=== PATIENT | female | born 1985 | race Caucasian/White ===

== ENCOUNTER 2016-09-24 19:55 | Emergency (ER) | payer OTHER ==
[2016-09-24 20:02] VITALS: TEMP 97.7; BMI 31.1
--- NOTE | 2016-09-24 20:22 | PDOC ---
[id number] 100 09/24/16 19:59 09/24/16 19:59 09/24/16 19:59 09/24/16 19:59 09/24/16 19:59 ED Treatment Course - LABORATORY CBC & Chemistry Diagram: 09/24/16 20:36 09/24/16 20:36 Medical Decision Making - Medical Decision Making 09/24/16 20:21 agree with care from PIG MACHINE CRANE OPERATOR Sudarshan *DC/Admit/Observation/Transfer Diagnosis at time of Disposition: General ill feeling, Fever - Discharge Dispostion Disposition: HOME - Prescriptions Prescriptions: Ibuprofen [Motrin -] 600 mg PO Q6H PRN #30 tablet PRN Reason: Mild Pain Famotidine [Pepcid -] 20 mg PO DAILY #7 tablet Oxycodone HCl/Acetaminophen [Percocet 5-325 mg Tablet] 1 tab PO Q6H PRN #16 tablet MDD 4 TABS PRN Reason: Severe Pain Ondansetron [Zofran Odt -] 4 mg SL Q6H PRN #20 od.tablet PRN Reason: NAUSEA AND VOMITING - Referrals Referrals: Taqueria Dominguez MD [Staff Physician] - - Patient Instructions Printed Discharge Instructions: DI for Viral Upper Respiratory Infection -- Adult Additional Instructions: FOLLOW UP WITH DR. DOMINGUEZ (GI SPECIALIST) REGARDING TODAYS VISIT. CALL TO SCHEDULE APPOINTMENT. TAKE MEDICATIONS PRESCRIBED. DO NOT DRIVE, DRINK ALCOHOL, OR OPERATE HEAVY MACHINERY WHILE TAKING PERCOCET. DRINK LOTS OF FLUIDS , GET REST. NO WORK X 3 DAYS. Print Language: AMHARIC - Post Discharge Activity Work/School Note: Back to Work
[2016-09-24] MEDS ORDERED: PANTOPRAZOLE SODIUM 40 MG in SODIUM CHLORIDE 100 ML IVPB ONE (20:32)
[2016-09-24] MEDS ORDERED: SODIUM CHLORIDE 1,000 ML IV STA (20:32)
[2016-09-24] MEDS ORDERED: PANTOPRAZOLE SODIUM 100 ML IVPB ONE (20:56)
--- NOTE | 2016-09-24 21:06 | PDOC ---
History of Present Illness - General Chief Complaint: Cold Symptoms Stated Complaint: FEVER/BODY ACHE/VOMITING/ABD PAIN Time Seen by Provider: 09/24/16 20:17 History Source: Patient Exam Limitations: No Limitations - History of Present Illness Initial Comments: 09/24/16 21:01 30yo Female patient with history of Asthma presents to ED c/o fever (104.1) today, vomit x 1, h/a with blurred vision, stomach pains x 2 days and possible seizure. Patient states she passed out while at home, and her sister thought she was having a seizure. Patient state mother has history of seizures. LNMP: 1 week ago. Patient took Motrin for fever with + results. She denies CP, back pain , diarrhea, constipation, diff breathing, rash, drug use, dysuria, hematuria, , or any other complaints. Timing/Duration: other (2 days.) Severity: mild Modifying Factors: improves with: medication Associated Symptoms: reports: fever/chills, headaches, loss of appetite, nausea/ vomiting, seizure (Possible) Aspirin Received prior to arrival: Yes: no aspirin today Past History - Travel Traveled outside of the country in the last 30 days: No Close contact w/someone who was outside of country & ill: No - Past Medical History Allergies/Adverse Reactions: Allergies Allergy/AdvReac Type Severity Reaction Status Date / Time No Known Allergies Allergy Verified 09/24/16 19:59 Home Medications: Ambulatory Orders Famotidine [Pepcid -] 20 mg PO DAILY #7 tablet 09/24/16 Ibuprofen [Motrin -] 600 mg PO Q6H PRN #30 tablet 09/24/16 Ondansetron [Zofran Odt -] 4 mg SL Q6H PRN #20 od.tablet 09/24/16 Oxycodone HCl/Acetaminophen [Percocet 5-325 mg Tablet] 1 tab PO Q6H PRN #16 tablet MDD 4 TABS 09/24/16 Asthma: Yes - Psycho/Social/Smoking Cessation Hx Suicidal Ideation: No Smoking History: Never smoked Review of Systems - Review of Systems Able to Perform ROS?: Yes Is the patient limited Faroese proficient: No Constitutional: Yes: Chills, Fever. No: Diaphoresis, Weakness HEENTM: Yes: Blurred Vision. No: Double Vision, Nose Congestion, Throat Pain Respiratory: No: Cough, Shortness of Breath, Wheezing Cardiac (ROS): No: Chest Pain, Edema, Palpitations ABD/GI: Yes: Nausea, Poor Appetite, Vomiting, Abdominal cramping. No: Diarrhea , Rectal Bleeding : No: Burning, Dysuria, Flank Pain, Hematuria Musculoskeletal: No: Back Pain Integumentary: No: Bruising, Rash Neurological: Yes: Headache, Seizure. No: Numbness, Paresthesia, Tingling, Tremors, Weakness, Dizziness All Other Systems: Reviewed and Negative *Physical Exam - Vital Signs Last Vital Signs Temp Pulse Resp BP Pulse Ox 97.7 F 69 18 125/81 100 09/24/16 19:59 09/24/16 19:59 09/24/16 19:59 09/24/16 19:59 09/24/16 19:59 - Physical Exam General Appearance: Yes: Nourished, Appropriately Dressed. No: Apparent Distress HEENT: positive: EOMI, SHRAVAN, Normal ENT Inspection, Normal Voice, Symmetrical, TMs Normal, Pharynx Normal Neck: positive: Trachea midline, Supple Respiratory/Chest: positive: Lungs Clear, Normal Breath Sounds Cardiovascular: positive: Regular Rhythm, Regular Rate Gastrointestinal/Abdominal: positive: Normal Bowel Sounds, Soft Musculoskeletal: positive: Normal Inspection. negative: CVA Tenderness Extremity: positive: Normal Capillary Refill, Normal Inspection, Normal Range of Motion Integumentary: positive: Normal Color, Dry, Warm Neurologic: positive: burning supervisor II-XII NML intact, Fully Oriented, Alert, Normal Mood/ Affect, Normal Response, Motor Strength 5/5 ED Treatment Course - LABORATORY CBC & Chemistry Diagram: 09/24/16 20:36 09/24/16 20:36 *DC/Admit/Observation/Transfer Diagnosis at time of Disposition: General ill feeling Fever Qualifiers: Fever type: unspecified Qualified Code(s): R50.9 - Fever, unspecified - Discharge Dispostion Disposition: HOME Condition at time of disposition: Improved Admit: No - Prescriptions Prescriptions: Ibuprofen [Motrin -] 600 mg PO Q6H PRN #30 tablet PRN Reason: Mild Pain Famotidine [Pepcid -] 20 mg PO DAILY #7 tablet Oxycodone HCl/Acetaminophen [Percocet 5-325 mg Tablet] 1 tab PO Q6H PRN #16 tablet MDD 4 TABS PRN Reason: Severe Pain Ondansetron [Zofran Odt -] 4 mg SL Q6H PRN #20 od.tablet PRN Reason: NAUSEA AND VOMITING - Referrals Referrals: Taqueria Dominguez MD [Staff Physician] - - Patient Instructions Printed Discharge Instructions: DI for Viral Upper Respiratory Infection -- Adult Additional Instructions: FOLLOW UP WITH DR. DOMINGUEZ (GI SPECIALIST) REGARDING TODAYS VISIT. CALL TO SCHEDULE APPOINTMENT. TAKE MEDICATIONS PRESCRIBED. DO NOT DRIVE, DRINK ALCOHOL, OR OPERATE HEAVY MACHINERY WHILE TAKING PERCOCET. DRINK LOTS OF FLUIDS , GET REST. NO WORK X 3 DAYS. Print Language: AZERI - Post Discharge Activity Work/School Note: Back to Work
[2016-09-24 21:16] LABS: MCHC 30.4 g/dl (32.0-36.0); MEAN CELL VOLUME 64.2 fl (80-96); MEAN PLT VOLUME 9.8 fl (7.5-11.1); PLATELET COUNT 369 K/MM3 (134-434); RDW 18.9 % (11.6-15.6); WHITE BLOOD COUNT 10.3 K/mm3 (4.0-10.0)
[2016-09-24 21:21] LABS: MCH 19.5 pg (25.7-33.7)
[2016-09-24 21:34] LABS: CALCIUM 9.2 mg/dL (8.5-10.1)
[2016-09-24 22:02] LABS: HYPOCHROMIA 3+; MICROCYTOSIS 2+; OVALOCYTES 1+; PLATELET ESTIMATE ADEQUATE (NORMAL); POIKILOCYTOSIS 1+; POLYCHROMASIA 1+
[2016-09-24] MEDS ORDERED: OXYCODONE/APAP 5/325MG COMBO TABLET PO ONE (22:18)
[2016-09-24] MEDS ORDERED: FAMOTIDINE 20 MG/50 ML IVPB 50 ML IVPB ONE ×2 (22:18→22:27)
[2016-09-24] MEDS ORDERED: OXYCODONE/APAP 5/325MG COMBO TABLET ONE (22:26)
[2016-09-24 22:44] LABS: PH,URINE 6.5 (5.0-8.0); URINE APPEARANCE CLEAR; URINE BILIRUBIN NEGATIVE (NEGATIVE); URINE BLOOD NEGATIVE (NEGATIVE); URINE COLOR LT. YELLOW; URINE GLUCOSE (UA) NEGATIVE (NEGATIVE); URINE KETONE NEGATIVE (NEGATIVE); URINE NITRITE NEGATIVE (NEGATIVE); URINE PROTEIN NEGATIVE (NEGATIVE); URINE UROBILINOGEN 0.2 E.U/dl E.U./dl (0.2-1.0)
[2016-09-24 22:49] LABS: URINE LEUK ESTERASE 1+ (NEGATIVE)
[2016-09-24 23:06] LABS: URINE BACTERIA RARE /hpf (NONE SEEN); URINE MUCUS RARE; URINE RBC 1 /hpf (0-3); URINE WBC 7 /hpf (3-5)
[2016-09-24 23:56] VITALS: BP 121/71; PULSE 74
== END 2016-09-24 23:57 | disposition home or self-care (01) ==
LOC: JER 19:55
PROC: 3E033GC Introduction of Other Therapeutic Substance into Peripheral Vein, Percutaneous Approach (ICD-10-PCS; principal; 2016-09-24)
PROC: 3E033GC Introduction of Other Therapeutic Substance into Peripheral Vein, Percutaneous Approach (ICD-10-PCS; 2016-09-24)
DX: R50.9 Fever, unspecified (principal)
CPT/HCPCS: 36415; 70450-TC; 80048; 81003; 81015; 82150; 83690; 84703; 85027; 87804; 99284-25

== ENCOUNTER 2017-05-27 23:22 | Emergency (ER) | payer OTHER ==
[2017-05-28 00:15] VITALS: BP 127/76; PULSE 121; TEMP 100.8; BMI 27.4
[2017-05-28] MEDS ORDERED: SODIUM CHLORIDE 1,000 ML IV STA (00:25)
[2017-05-28] MEDS ORDERED: DEXAMETHASONE SOD PHOSPHATE 10 MG/1 ML VIAL IVPB ONE (00:25)
[2017-05-28] MEDS ORDERED: DEXAMETHASONE SOD PHOSPHATE 10 MG/1 ML VIAL ONE (00:34)
[2017-05-28 00:44] LABS: BASOPHIL 0.4 % (0-2.0); EOSINOPHIL 0.7 % (0-4.5); MCH 20.6 pg (25.7-33.7); MCHC 31.8 g/dl (32.0-36.0); MEAN CELL VOLUME 64.9 fl (80-96); MEAN PLT VOLUME 9.9 fl (7.5-11.1); NEUTROPHILS 80.4 % (42.8-82.8); PLATELET COUNT 285 K/MM3 (134-434); RDW 18.2 % (11.6-15.6); WHITE BLOOD COUNT 17.5 K/mm3 (4.0-10.0)
[2017-05-28 01:18] LABS: ALBUMIN 4.1 g/dl (3.4-5.0); ALK PHOS 102 U/L (45-117); ANION GAP 11 (8-16); BILIRUBIN,TOTAL 0.4 mg/dL (0.2-1.0); CALCIUM 8.9 mg/dL (8.5-10.1); CO2 24 mmol/L (21-32); CREATININE 0.6 mg/dL (0.55-1.02); GLUCOSE,RANDOM 89 mg/dL (74-106); SGOT/AST 11 U/L (15-37); SGPT/ALT 24 U/L (12-78); TOT PROT 7.6 g/dl (6.4-8.2)
[2017-05-28] MEDS ORDERED: PENICILLIN G BENZATHINE 1,200,000 UNIT/2 ML PFS IM ONE (01:23)
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
[2017-05-28 03:19] LABS: ANISOCYTOSIS 2+; HYPOCHROMIA 2+; MICROCYTOSIS 2+
[2017-05-28 03:20] LABS: OVALOCYTE RARE
== END 2017-05-28 02:09 | disposition home or self-care (01) ==
LOC: JER 23:22
PROC: 3E0333Z Introduction of Anti-inflammatory into Peripheral Vein, Percutaneous Approach (ICD-10-PCS; principal; 2017-05-27)
PROC: 3E02329 Introduction of Other Anti-infective into Muscle, Percutaneous Approach (ICD-10-PCS; 2017-05-27)
DX: J02.0 Streptococcal pharyngitis (principal); B95.0 Streptococcus, group A, as the cause of diseases classified elsewhere
CPT/HCPCS: 36415; 80053; 84703; 85025; 87070; 87077; 87430; 96372; 96374; 99282-25

== ENCOUNTER 2018-06-03 17:21 | Emergency (ER) | payer OTHER ==
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
[2018-06-03 17:39] VITALS: BP 122/67; PULSE 78; TEMP 98.7; BMI 34.9
[2018-06-03] MEDS ORDERED: KETOROLAC TROMETHAMINE 60 MG/2 ML VIAL IM ONE (17:55)
[2018-06-03] MEDS ORDERED: KETOROLAC TROMETHAMINE 60 MG/2 ML VIAL ONE (17:59)
--- NOTE | 2018-06-03 18:01 | PDOC ---
History of Present Illness - General Chief Complaint: Back Pain Stated Complaint: BACK PAIN Time Seen by Provider: 06/03/18 17:25 - History of Present Illness Initial Comments: 32-year-old female without comorbidities presents for evaluation of neck and lower back pain 2 weeks. She complains of radicular symptoms down the right and left arm as well as the right leg. Her pain is exacerbated with activity minimally relieved with rest with the above-mentioned radiation. She denies loss of bowel bladder function or saddle paresthesias. She has taken Tylenol and Motrin at home without much relief. She denies any chance of 06/03/18 17:57 Past History - Past Medical History Allergies/Adverse Reactions: Allergies Allergy/AdvReac Type Severity Reaction Status Date / Time No Known Allergies Allergy Verified 06/03/18 17:24 Home Medications: Ambulatory Orders Cyclobenzaprine HCl [Flexeril 10 mg] 10 mg PO HS PRN #10 tablet 06/03/18 Methylprednisolone [Medrol Dose Yoan] 4 mg PO ASDIR #21 tablet 06/03/18 Asthma: Yes COPD: No - Immunization History Immunization Up to Date: Yes - Suicide/Smoking/Psychosocial Hx Smoking History: Never smoked Have you smoked in the past 12 months: No Hx Alcohol Use: No Drug/Substance Use Hx: No Review of Systems - Review of Systems Musculoskeletal: Yes: See HPI, Back Pain, Muscle Pain, Neck Pain All Other Systems: Reviewed and Negative *Physical Exam - Vital Signs Last Vital Signs Temp Pulse Resp BP Pulse Ox 98.7 F 78 16 122/67 100 06/03/18 17:25 06/03/18 17:25 06/03/18 17:25 06/03/18 17:25 06/03/18 17:25 - Physical Exam Comments: Cervical spine skin color and temperature are normal range of motion is mildly decreased with pain. She has no midline tenderness mild right left paracervical musculature tenderness and spasm. 5 out of 5 strength in bilateral upper extremities mild a positive Spurling maneuver on the right and left. She has no gross sensorimotor deficits. Upper extremity compartments are soft and nontender. She's neurovascular intact. Lumbar spine skin color and temperature are normal she has no midline tenderness. She has mild paralumbar musculature spasm and tenderness. 5 out of 5 strength in bilateral lower extremities negative straight leg raise test on the left positive on the right. She has no gross sensorimotor deficits. She's neurovascular intact. 06/03/18 17:58 Medical Decision Making - Medical Decision Making Geraldine cervical and lumbar radicular pain with a Medrol Dosepak and Flexeril in the emergency room I will give her a shot of Toradol and reevaluate her 06/03/18 17:59 *DC/Admit/Observation/Transfer Diagnosis at time of Disposition: Cervical radiculopathy, Lumbar radiculopathy Back pain Qualifiers: Back pain location: back pain in other location Chronicity: unspecified Qualified Code(s): M54.89 - Other dorsalgia - Discharge Dispostion Disposition: HOME Condition at time of disposition: Improved Decision to Admit order: No - Prescriptions Prescriptions: Cyclobenzaprine HCl [Flexeril 10 mg] 10 mg PO HS PRN #10 tablet PRN Reason: Muscle Spasms Methylprednisolone [Medrol Dose Yoan] 4 mg PO ASDIR #21 tablet - Referrals Referrals: Sotero Clemons MD [Staff Physician] - - Patient Instructions Printed Discharge Instructions: DI for Cervical Radiculopathy, Lumbar Radiculopathy, DI for Lumbar Radiculopathy Additional Instructions: Return to the emergency room should symptoms worsen or go unresolved. I've given you a prescription for a steroid pack which he should start tomorrow morning. As well as a muscle relaxant. He may start the muscle relaxer tonight. One tablet before bedtime. This tablet make you sleepy. Follow-up with spine surgery in 1-2 days for further evaluation and treatment options. - Post Discharge Activity
== END 2018-06-03 18:29 | disposition home or self-care (01) ==
LOC: JERFT 17:21
PROC: 3E0233Z Introduction of Anti-inflammatory into Muscle, Percutaneous Approach (ICD-10-PCS; principal; 2018-06-03)
DX: M54.12 Radiculopathy, cervical region (principal); M54.16 Radiculopathy, lumbar region
CPT/HCPCS: 96372; 99281-25

== ENCOUNTER 2018-08-01 16:59 | Emergency (ER) | payer OTHER ==
[2018-08-01] MEDS ORDERED: ALBUTEROL SO4 2.5/IPRATROPIUM 0.5 INH SOL 3 ML VIAL.NEB. NEB ONE ×3 (17:42→18:07)
[2018-08-01 17:44] VITALS: BP 114/79; PULSE 88; TEMP 99.2; BMI 34.9
--- NOTE | 2018-08-01 17:45 | PDOC ---
Rapid Medical Evaluation Time Seen by Provider: 08/01/18 17:40 Medical Evaluation: Allergies Allergy/AdvReac Type Severity Reaction Status Date / Time No Known Allergies Allergy Verified 08/01/18 17:40 08/01/18 17:40 c/o difficulty breathing x 3 days, cough, throat pain, bodyaches. + fever tmax 103.4 PE: + wheezing, pharyngeal erythema A: bronchitis? cough P: rapid strep, duoneb, chest xray, ua/ urine patient to the ER for further management of care Discharge Disposition - Diagnosis Cough URI (upper respiratory infection) Qualifiers: URI type: unspecified URI Qualified Code(s): J06.9 - Acute upper respiratory infection, unspecified - Referrals - Patient Instructions - Post Discharge Activity
[2018-08-01] MEDS ORDERED: predniSONE 20 MG TABLET (UD) ONE (18:07)
[2018-08-01] MEDS ORDERED: predniSONE 20 MG TABLET (UD) PO ONE (18:08)
--- NOTE | 2018-08-01 18:15 | PDOC ---
History of Present Illness - General Chief Complaint: Respiratory Stated Complaint: FEVER Time Seen by Provider: 08/01/18 17:40 History Source: Patient Exam Limitations: No Limitations - History of Present Illness Initial Comments: 08/01/18 18:10 Patient came onset of cold symptoms a few days ago that yesterday progressed to fevers and chills, MAXIMUM TEMPERATURE 103. Complaints of moist cough that's nonproductive, ear congestion, sore throat pain, and body aches. Timing/Duration: reports: changing over time, getting worse Severity: reports: moderate Associated Symptoms: reports: earache, fever/chills, headache, muscle aches, nasal congestion, nasal drainage, wheezing Past History - Travel Traveled outside of the country in the last 30 days: No Close contact w/someone who was outside of country & ill: No - Past Medical History Allergies/Adverse Reactions: Allergies Allergy/AdvReac Type Severity Reaction Status Date / Time No Known Allergies Allergy Verified 08/01/18 17:40 Home Medications: Ambulatory Orders Albuterol 0.083% Nebulizer Tawanna [Ventolin 0.083% Nebulizer Soln -] 1 neb NEB Q4H PRN #30 vial 08/01/18 Albuterol 0.083% Nebulizer Tawanna [Ventolin 0.083% Nebulizer Soln -] 1 neb NEB Q4H PRN #30 vial 08/01/18 Azithromycin [Zithromax -] 250 mg PO UTDICT #6 tab 08/01/18 Ibuprofen [Motrin -] 400 mg PO TID 08/01/18 predniSONE [Deltasone -] 20 mg PO BID #8 tablet 08/01/18 predniSONE [Deltasone -] 20 mg PO BID #8 tablet 08/01/18 Asthma: Yes COPD: No - Immunization History Immunization Up to Date: Yes - Suicide/Smoking/Psychosocial Hx Smoking History: Never smoked Have you smoked in the past 12 months: No Hx Alcohol Use: No Drug/Substance Use Hx: No Respiratory Specific PMHX - Complaint Specific PMHX Bronchitis: Yes Review of Systems - Review of Systems Able to Perform ROS?: Yes Is the patient limited Hungarian proficient: Yes Constitutional: Yes: Symptoms Reported, See HPI, Chills, Fever, Loss of Appetite , Malaise HEENTM: Yes: Symptoms Reported, See HPI, Ear Pain, Nose Congestion, Throat Pain Respiratory: Yes: Symptoms reported, See HPI, Cough (nonproductive), Wheezing ABD/GI: Yes: See HPI, Nausea Musculoskeletal: Yes: Symptoms Reported, See HPI, Muscle Pain Integumentary: No: Symptoms Reported Neurological: Yes: Symptoms reported All Other Systems: Reviewed and Negative *Physical Exam - Vital Signs Last Vital Signs Temp Pulse Resp BP Pulse Ox 99.2 F 88 18 114/79 98 08/01/18 17:40 08/01/18 17:40 08/01/18 17:40 08/01/18 17:40 08/01/18 17:40 - Physical Exam General Appearance: Yes: Nourished, Appropriately Dressed, Apparent Distress, Mild Distress, Moderate Distress HEENT: positive: SHRAVAN, TMs Normal, Pharynx Normal, Pharyngeal Erythema, Tonsillar Exudate, Nasal Congestion, Rhinorrhea, Sinus Tenderness Neck: positive: Supple, Lymphadenopathy (R), Lymphadenopathy (L) Respiratory/Chest: positive: Decreased Breath Sounds, Wheezing Cardiovascular: positive: Regular Rhythm Gastrointestinal/Abdominal: positive: Soft. negative: Tender Extremity: positive: Normal Capillary Refill, Normal Inspection, Normal Range of Motion, Tender Integumentary: positive: Dry, Warm, Pale Neurologic: positive: rn clinical appeals II-XII NML intact, Fully Oriented, Alert, Normal Mood/ Affect Progress Note - Progress Note Progress Note: Keep bronchitis, we'll continue albuterol nebulizers, prednisone, and azithromycin Medical Decision Making - Medical Decision Making 08/01/18 19:31 Breath sounds much improved after 2 DuoNeb's, and 60 mg of prednisone. Patient states feels better and is ready for discharge. We'll continue albuterol nebulizers at home, 4 days of prednisone, and will add azithromycin as patient suffers from chronic 08/01/18 19:32 *DC/Admit/Observation/Transfer Diagnosis at time of Disposition: Cough URI (upper respiratory infection) Qualifiers: URI type: unspecified URI Qualified Code(s): J06.9 - Acute upper respiratory infection, unspecified - Discharge Dispostion Disposition: HOME Condition at time of disposition: Stable Decision to Admit order: No - Prescriptions Prescriptions: Albuterol 0.083% Nebulizer Tawanna [Ventolin 0.083% Nebulizer Soln -] 1 neb NEB Q4H PRN #30 vial PRN Reason: Cough Albuterol 0.083% Nebulizer Tawanna [Ventolin 0.083% Nebulizer Soln -] 1 neb NEB Q4H PRN #30 vial PRN Reason: Cough Azithromycin [Zithromax -] 250 mg PO UTDICT #6 tab predniSONE [Deltasone -] 20 mg PO BID #8 tablet predniSONE [Deltasone -] 20 mg PO BID #8 tablet - Referrals - Patient Instructions Printed Discharge Instructions: DI for Acute Bronchitis Additional Instructions: Rest, drink lots of fluids: Teas, water, soups, Pedialyte Saltwater gargles Steamy showers/seem to face break up mucus Avoid contact with others until fevers and cough resolved Lots of handwashing and good hygiene Continue [id number] medications for symptomatic relief Tylenol or Motrin for fever and pain Continue albuterol nebulizers every 4-6 hours for the next 2 days then as needed for continued cough Prednisone as directed until completed Azithromycin as directed Followup with private physician in one to 2 days Return to emergency department / pediatric hospital for worsened symptoms, fevers, dehydration - Post Discharge Activity Forms/Work/School Notes: Back to Work
[2018-08-01 18:30] LABS: URINE APPEARANCE SLCLOUDY; URINE BILIRUBIN NEGATIVE (<2.0 mg/dL); URINE COLOR YELLOW; URINE GLUCOSE (UA) NEGATIVE (NEGATIVE); URINE KETONE NEGATIVE (NEGATIVE); URINE LEUK ESTERASE 2+ (NEGATIVE); URINE NITRITE NEGATIVE (NEGATIVE); URINE PROTEIN NEGATIVE (NEGATIVE); URINE UROBILINOGEN 4.0 E.U/dl mg/dL (0.2-1.0)
[2018-08-01 18:33] LABS: HCG,QUALITATIVE URINE Negative
[2018-08-01 18:37] LABS: EPI CELLS MODERATE /HPF (FEW); URINE MUCUS FEW
[2018-08-01] MEDS ORDERED: IBUPROFEN 600 MG TABLET (FP) PO ONE ×2 (19:35→19:36)
== END 2018-08-01 19:41 | disposition home or self-care (01) ==
LOC: JERFT 16:59
PROC: 3E0F7GC Introduction of Other Therapeutic Substance into Respiratory Tract, Via Natural or Artificial Opening (ICD-10-PCS; principal; 2018-08-01)
DX: J06.9 Acute upper respiratory infection, unspecified (principal)
CPT/HCPCS: 81003; 81015; 84703; 87070; 87804; 94640; 99281-25

== ENCOUNTER 2018-09-24 19:30 | Emergency (ER) | payer OTHER ==
[2018-09-24 19:37] VITALS: BP 120/74; PULSE 75; TEMP 97.8; BMI 34.0
--- NOTE | 2018-09-24 20:35 | PDOC ---
History of Present Illness - General Chief Complaint: Cold Symptoms Stated Complaint: COLD SYMPTOMS Time Seen by Provider: 09/24/18 20:14 - History of Present Illness Initial Comments: 09/24/18 20:34 32-year-old female without comorbidities presents for evaluation of cough nasal congestion intermittent subjective fever at home 2 days Past History - Past Medical History Allergies/Adverse Reactions: Allergies Allergy/AdvReac Type Severity Reaction Status Date / Time No Known Allergies Allergy Verified 09/24/18 19:37 Home Medications: Ambulatory Orders NK [No Known Home Medication] 09/24/18 Asthma: Yes COPD: No - Immunization History Immunization Up to Date: Yes - Suicide/Smoking/Psychosocial Hx Smoking History: Never smoked Have you smoked in the past 12 months: No Information on smoking cessation initiated: No Hx Alcohol Use: No Drug/Substance Use Hx: No Review of Systems - Review of Systems Constitutional: Yes: Fever HEENTM: Yes: Nose Congestion Respiratory: Yes: Cough *Physical Exam - Vital Signs Last Vital Signs Temp Pulse Resp BP Pulse Ox 97.8 F 75 16 120/74 100 09/24/18 19:36 09/24/18 19:36 09/24/18 19:36 09/24/18 19:36 09/24/18 19:36 - Physical Exam Comments: 09/24/18 20:35 HEAD: NC/AT EYES: Conjuntiva clear Ears: Canals and TM's normal NOSE: clear d/c THROAT: Moist mucous membrances, oral pharanx clear, uvula midline NECK: Supple without adenopathy CARDIAC: S1 S2 LUNGS: CTA Full and Equal breath sounds ABDOMEN: Soft NT ND MS: Full ROM in all joints without edema NEUROLOGIC: No gross sensory or motor deficits, NVID SKIN: Normal color and temperature no lesions or rashes Moderate Sedation - Procedure Monitoring Vital Signs: Procedure Monitoring Vital Signs Temperature 97.8 F 09/24/18 19:36 Pulse Rate 75 09/24/18 19:36 Respiratory Rate 16 09/24/18 19:36 Blood Pressure 120/74 09/24/18 19:36 O2 Sat by Pulse Oximetry (%) 100 09/24/18 19:36 *DC/Admit/Observation/Transfer Diagnosis at time of Disposition: Upper respiratory infection - Discharge Dispostion Disposition: HOME Condition at time of disposition: Stable Decision to Admit order: No - Referrals Referrals: Riana Eisenberg MD [Staff Physician] - - Patient Instructions Printed Discharge Instructions: DI for Viral Upper Respiratory Infection -- Adult Additional Instructions: Flu swab today was negative. Return to the emergency room should symptoms worsen or go unresolved. Follow-up with primary care physician in one to 2 days for further evaluation and treatment options. The of fluids, Tylenol and Motrin as directed for fever. Robitussin for cough. - Post Discharge Activity
== END 2018-09-24 21:46 | disposition home or self-care (01) ==
LOC: JERFT 19:30
DX: J06.9 Acute upper respiratory infection, unspecified (principal)
CPT/HCPCS: 87804; 99281-25

== ENCOUNTER 2019-01-15 21:21 | Emergency (ER) | payer OTHER ==
--- NOTE | 2019-01-15 21:30 | PDOC ---
Rapid Medical Evaluation Chief Complaint: Pain Time Seen by Provider: 01/15/19 21:27 Medical Evaluation: Allergies Allergy/AdvReac Type Severity Reaction Status Date / Time No Known Allergies Allergy Verified 09/24/18 19:37 01/15/19 21:29 I have performed a brief in-person evaluation of this patient. The patient presents with a chief complaint of: chest and abd pain Pertinent physical exam findings:stable and in NAD, non-focal I have ordered the following:labs, ekg The patient will proceed to the ED for further evaluation.
[2019-01-15 21:33] VITALS: BMI 30.9
[2019-01-15 21:54] LABS: BASO % 0.6 % (0-2.0); EOS % 2.3 % (0-4.5); HEMATOCRIT 33.5 % (32.4-45.2); HEMOGLOBIN 10.7 GM/dL (10.7-15.3); MCH 21.7 pg (25.7-33.7); MCHC 31.9 g/dl (32.0-36.0); MEAN PLT VOLUME 10.2 fl (7.5-11.1); NEUT % 53.1 % (42.8-82.8); PLATELET COUNT 231 K/MM3 (134-434); RBC 4.93 M/mm3 (3.60-5.2); RDW 18.5 % (11.6-15.6); WHITE BLOOD COUNT 8.5 K/mm3 (4.0-10.0)
[2019-01-15 22:19] LABS: ALBUMIN 3.9 g/dl (3.4-5.0); ALK PHOS 74 U/L (45-117); ANION GAP 6 MMOL/L (8-16); BILIRUBIN,TOTAL 0.3 mg/dL (0.2-1); BLOOD UREA NITROGEN 7 mg/dL (7-18); CALCIUM 8.6 mg/dL (8.5-10.1); CHLORIDE 108 mmol/L (98-107); CO2 27 mmol/L (21-32); CREATININE 0.6 mg/dL (0.55-1.3); GLUCOSE,RANDOM 93 mg/dL (74-106); LIPASE 223 U/L (73-393); POTASSIUM 3.5 mmol/L (3.5-5.1); SGOT/AST 17 U/L (15-37); SGPT/ALT 19 U/L (13-61); SODIUM 141 mmol/L (136-145); TOT PROT 7.2 g/dl (6.4-8.2)
[2019-01-15] MEDS ORDERED: SODIUM CHLORIDE 1,000 ML IV STA (22:21)
[2019-01-15] MEDS ORDERED: morphine CARPU-JECT 4 MG/1 ML DISP.SYRIN IVPUSH ONE (22:21)
[2019-01-15] MEDS ORDERED: ONDANSETRON 4 MG/2 ML VIAL IVPUSH ONE (22:21)
[2019-01-15] MEDS ORDERED: ONDANSETRON 4 MG/2 ML VIAL ONE (22:56)
[2019-01-15] MEDS ORDERED: morphine SULFATE 4 MG/ML VIAL ONE (22:56)
[2019-01-15 23:08] LABS: EPI CELLS 5.4 /HPF (0-5/HPF); PH,URINE 7.5 (5.0-8.0); URINE APPEARANCE CLEAR; URINE BACTERIA 170.4 /hpf (NEGATIVE); URINE BILIRUBIN NEGATIVE (NEGATIVE); URINE CASTS 7 /lpf (0-8); URINE COLOR YELLOW; URINE GLUCOSE (UA) NEGATIVE (NEGATIVE); URINE KETONE TRACE (NEGATIVE); URINE LEUK ESTERASE TRACE (NEGATIVE); URINE NITRITE NEGATIVE (NEGATIVE); URINE PROTEIN NEGATIVE (NEGATIVE); URINE RBC 8 /hpf (0-4); URINE WBC 4 /hpf (0-5)
[2019-01-15 23:25] LABS: ANISOCYTOSIS 2+; MACROCYTOSIS 1+; OVALOCYTE 1+; PLATELET ESTIMATE ADEQUATE
--- NOTE | 2019-01-15 23:55 | PDOC ---
History of Present Illness - General Chief Complaint: Pain Stated Complaint: ABD PAIN Time Seen by Provider: 01/15/19 21:27 History Source: Patient Exam Limitations: No Limitations Past History - Past Medical History Allergies/Adverse Reactions: Allergies Allergy/AdvReac Type Severity Reaction Status Date / Time No Known Allergies Allergy Verified 01/15/19 21:33 Home Medications: Ambulatory Orders Ibuprofen [Motrin -] 600 mg PO QID PRN #28 tablet 01/16/19 Asthma: Yes COPD: No - Surgical History GI Surgery: Yes (sleeve) - Immunization History Immunization Up to Date: Yes - Suicide/Smoking/Psychosocial Hx Smoking History: Never smoked Have you smoked in the past 12 months: No Information on smoking cessation initiated: No Hx Alcohol Use: No Drug/Substance Use Hx: No *Physical Exam - Vital Signs Last Vital Signs Temp Pulse Resp BP Pulse Ox 97.8 F 83 17 127/82 100 01/15/19 21:29 01/15/19 21:29 01/15/19 21:29 01/15/19 21:29 01/15/19 21:29 - Physical Exam General Appearance: No: Apparent Distress Respiratory/Chest: positive: Chest Tender (+reproducible along anterior chest wall), Lungs Clear, Normal Breath Sounds. negative: Respiratory Distress Cardiovascular: positive: Regular Rhythm, Regular Rate, S1, S2. negative: Murmur Gastrointestinal/Abdominal: positive: Soft, Tenderness (generalized (L>R)). negative: Distended, Guarding, Rebound, Hernia, Mass Musculoskeletal: negative: CVA Tenderness Integumentary: positive: Normal Color Neurologic: positive: Alert, Normal Mood/Affect ED Treatment Course - LABORATORY CBC & Chemistry Diagram: 01/15/19 21:41 01/15/19 21:41 - ADDITIONAL ORDERS Additional order review: Laboratory Results 01/15/19 01/15/19 01/15/19 22:50 22:50 21:41 Sodium 141 Potassium 3.5 Chloride 108 H Carbon Dioxide 27 Anion Gap 6 L BUN 7 Creatinine 0.6 Creat Clearance w eGFR 115.13 Random Glucose 93 Calcium 8.6 Total Bilirubin 0.3 AST 17 ALT 19 Alkaline Phosphatase 74 Total Protein 7.2 Albumin 3.9 Lipase 223 Urine Color Yellow Urine Appearance Clear Urine pH 7.5 D Ur Specific Gamaliel 1.030 Urine Protein Negative Urine Glucose (UA) Negative Urine Ketones Trace H Urine Blood Negative Urine Nitrite Negative Urine Bilirubin Negative Urine Urobilinogen 1.0 Ur Leukocyte Esterase Trace Urine WBC (Auto) 4 Urine RBC (Auto) 8 Urine Casts (Auto) 7 U Pathogenic Cast Auto No Result Required. U Epithel Cells (Auto) 5.4 U Sm Round Cell (Auto) No Result Required. Urine Crystals (Auto) No Result Required. Urine Bacteria (Auto) 170.4 Urine HCG, Qual Negative 01/15/19 21:41 RBC 4.93 MCV 68.0 L MCHC 31.9 L RDW 18.5 H MPV 10.2 Neutrophils % 53.1 Lymphocytes % 38.0 D Monocytes % 6.0 Eosinophils % 2.3 Basophils % 0.6 - RADIOLOGY Radiology Studies Ordered: Category Date Time Status ABDOMEN & PELVIS CT WITH CONTR [CT] Stat CT Scan 01/15/19 22:[address] WITH CONTRAST [CT] Stat CT Scan 01/15/19 22:49 Ordered Medical Decision Making - Medical Decision Making 33 y/o F hx of asthma, gastric sleeve around 1.5 months ago (done in [place]) , presents with cramping epigastric pain x 1.5 weeks along with substernal chest pressure/tightness, which does not feel like her usual asthma. Tylenol helps a little with pain. Had fever of 103.1 yesterday but did not take any antipyretics yesterday or today. Also mentions having occasional NBNB emesis and watery/loose stools x 3 days. Denies sob, urinary complaints. LNMP 01/01. Generalized abd pain s/p gastric sleeve Plan: Labs, IVF, Zofran, Morphine, CT A/P (r/o any complications from surgery) Substernal CP EKG: NSR at 70 bpm with PAC Could be MSK in nature given it is reproducible However, also with risk factors for PE Plan: CT PE study 01/15/19 23:50 CT PE neg for PE; incidental lung nodules noted CT A/P showed no acute findings Patient requesting rx for Percocet as received some after her surgery and would like in case her pain returns Explained no need for opiates at this time given no acute findings on CT A/P; patient would like rx for Motrin Patient stable for dc 01/16/19 04:47 *DC/Admit/Observation/Transfer Diagnosis at time of Disposition: Generalized abdominal pain - Discharge Dispostion Disposition: HOME Condition at time of disposition: Stable Decision to Admit order: No - Prescriptions Prescriptions: Ibuprofen [Motrin -] 600 mg PO QID PRN #28 tablet PRN Reason: Pain - Referrals Referrals: Reese Kat MD [Staff Physician] - 2 Days - Patient Instructions Printed Discharge Instructions: DI for Abdominal Pain-Adult Additional Instructions: Thank you for choosing [facility]. It was a pleasure taking care of you. Your CT scan showed no clot in your lungs or other acute pathology in your abdomen. You were incidentally noted with lung nodules - please follow-up with your regular doctor regarding this. You may take Tylenol 650 mg or Motrin 600 mg every 6 hours by mouth as needed for mild to moderate pain. Take Motrin with food. Do not take more than 4000 mg of Tylenol in 1 day. You were referred to a surgeon who you can follow-up with regarding your symptoms Return to the Emergency Department if your symptoms worsen or persist or have other concerning symptoms. - Post Discharge Activity
[2019-01-16] MEDS ORDERED: morphine CARPU-JECT 4 MG/1 ML DISP.SYRIN IVPUSH ONE (03:24)
[2019-01-16] MEDS ORDERED: ONDANSETRON 4 MG/2 ML VIAL IVPUSH ONE (03:24)
[2019-01-16] MEDS ORDERED: morphine SULFATE 4 MG/ML VIAL ONE (03:29)
[2019-01-16] MEDS ORDERED: ONDANSETRON 4 MG/2 ML VIAL ONE (03:30)
[2019-01-16 04:50] VITALS: BP 122/68; PULSE 86; TEMP 98.1
--- NOTE | 2019-01-16 10:40 | EKG ---
Test Reason : Blood Pressure : / mmHG Vent. Rate : 070 BPM Atrial Rate : 070 BPM P-R Int : 142 ms QRS Dur : 096 ms QT Int : 408 ms P-R-T Axes : 052 063 024 degrees QTc Int : 440 ms SINUS RHYTHM WITH PREMATURE ATRIAL COMPLEXES INCOMPLETE RIGHT BUNDLE BRANCH BLOCK NONSPECIFIC T WAVE ABNORMALITY ABNORMAL ECG NO PREVIOUS ECGS AVAILABLE Confirmed by CHARLOTTE LAL MD ([id number]) on 01/16/2019 10:39:56 AM Referred By: Confirmed By:HCARLOTTE LAL MD
== END 2019-01-16 06:00 | disposition home or self-care (01) ==
LOC: JER 21:21
PROC: 3E033GC Introduction of Other Therapeutic Substance into Peripheral Vein, Percutaneous Approach (ICD-10-PCS; principal; 2019-01-15)
PROC: 3E033NZ Introduction of Analgesics, Hypnotics, Sedatives into Peripheral Vein, Percutaneous Approach (ICD-10-PCS; 2019-01-15)
DX: R10.84 Generalized abdominal pain (principal); Z87.09 Personal history of other diseases of the respiratory system; Z98.84 Bariatric surgery status
CPT/HCPCS: 36415; 71260-TC; 74177-TC; 80053; 81003; 83690; 84703; 85025; 93005; 93010; 99283-25; J7030

== ENCOUNTER 2019-02-07 23:55 | Emergency (ER) | payer OTHER | END 2019-02-08 05:20 | disposition home or self-care (01) | LOC: JER 23:55 | PROC: 3E033GC Introduction of Other Therapeutic Substance into Peripheral Vein, Percutaneous Approach (ICD-10-PCS; principal; 2019-02-07) | PROC: 3E033GC Introduction of Other Therapeutic Substance into Peripheral Vein, Percutaneous Approach (ICD-10-PCS; 2019-02-07) | PROC: 3E033NZ Introduction of Analgesics, Hypnotics, Sedatives into Peripheral Vein, Percutaneous Approach (ICD-10-PCS; 2019-02-07) | PROC: 3E033NZ Introduction of Analgesics, Hypnotics, Sedatives into Peripheral Vein, Percutaneous Approach (ICD-10-PCS; 2019-02-07) | PROC: 3E0333Z Introduction of Anti-inflammatory into Peripheral Vein, Percutaneous Approach (ICD-10-PCS; 2019-02-07) | DX: R10.9 Unspecified abdominal pain (principal); Z98.84 Bariatric surgery status ==

== ENCOUNTER 2019-05-30 04:37 | Emergency (ER) | payer OTHER ==
[2019-05-30 05:01] VITALS: BMI 28.3
[2019-05-30 06:12] LABS: BASO % 0.6 % (0-2.0); HEMATOCRIT 31.6 % (32.4-45.2); HEMOGLOBIN 9.9 GM/dL (10.7-15.3); MCHC 31.5 g/dl (32.0-36.0); MEAN PLT VOLUME 10.3 fl (7.5-11.1); MONO % 11.9 % (3.8-10.2); NEUT % 47.5 % (42.8-82.8); PLATELET COUNT 226 K/MM3 (134-434); RBC 4.52 M/mm3 (3.60-5.2); RDW 16.8 % (11.6-15.6); WHITE BLOOD COUNT 6.8 K/mm3 (4.0-10.0)
[2019-05-30] MEDS ORDERED: ACETAMINOPHEN 1000 MG/100 ML VIAL (NON FORMULARY) IVPB ONE (06:35)
[2019-05-30] MEDS ORDERED: ACETAMINOPHEN INJECTION 100 ML IVPB ONE (06:37)
[2019-05-30] MEDS ORDERED: ONDANSETRON 4 MG/2 ML VIAL IVPUSH ONE (06:39)
[2019-05-30] MEDS ORDERED: SODIUM CHLORIDE 1,000 ML IV STA (06:39)
--- NOTE | 2019-05-30 06:41 | PDOC ---
Attending Attestation - Resident Resident Name: Samir Vines - ED Attending Attestation I have performed the following: I have examined & evaluated the patient, The case was reviewed & discussed with the resident, I agree w/resident's findings & plan - HPI HPI: 05/30/19 06:40 33 yo female pmh asthma, gastric sleeve (11/2018 in [place]) presents to the ED after 1 week of NB/NB vomiting and diffuse abdominal pain. Pt states she has been unable to eat or drink solid foods for 1 week. Pain is diffuse abdomen, non radiating, described as achy cramping pain. Pt admits to diffuse back pain from her neck down to her lower back made worse with light palpation. Denies changes in bowel or bladder habits, recent illness, F/C, CP, SOB. - Physicial Exam PE: 05/30/19 06:41 Agree with resident exam 06/01/19 05:25 Pt has her chronic abd pain that comes and goes. She drank [employer] and feels that didn't sit well in her stomach. - Medical Decision Making 06/01/19 05:24 Pt is awaiting lab results she will be signed out to the day ER team.
--- NOTE | 2019-05-30 06:47 | PDOC ---
History of Present Illness - General Chief Complaint: Pain Stated Complaint: ABD PAIN Time Seen by Provider: 05/30/19 05:10 History Source: Patient Exam Limitations: No Limitations - History of Present Illness Initial Comments: 05/30/19 06:38 33 yo female pmh asthma, gastric sleeve (11/2018 in [place]) presents to the ED after 1 week of NB/NB vomiting and diffuse abdominal pain. Pt states she has been unable to eat or drink solid foods for 1 week. Pain is diffuse abdomen, non radiating, described as achy cramping pain. Pt admits to diffuse back pain from her neck down to her lower back made worse with light palpation. Denies changes in bowel or bladder habits, recent illness, F/C, CP, SOB. Past History - Past Medical History Allergies/Adverse Reactions: Allergies Allergy/AdvReac Type Severity Reaction Status Date / Time No Known Allergies Allergy Verified 05/30/19 05:00 Home Medications: Ambulatory Orders NK [No Known Home Medication] 05/30/19 Asthma: Yes COPD: No - Surgical History GI Surgery: Yes (sleeve) - Reproductive History Therapeutic (s) & number: No - Immunization History Immunization Up to Date: Yes - Suicide/Smoking/Psychosocial Hx Smoking History: Unknown if ever smoked Have you smoked in the past 12 months: No Hx Alcohol Use: No Drug/Substance Use Hx: No Review of Systems - Review of Systems Constitutional: Yes: See HPI HEENTM: Yes: See HPI Respiratory: Yes: See HPI Cardiac (ROS): Yes: See HPI ABD/GI: Yes: See HPI : Yes: See HPI Musculoskeletal: Yes: See HPI Integumentary: Yes: See HPI Neurological: Yes: See HPI *Physical Exam - Vital Signs Last Vital Signs Temp Pulse Resp BP Pulse Ox 98.3 F 60 18 115/89 100 05/30/19 04:55 05/30/19 04:55 05/30/19 04:55 05/30/19 04:55 05/30/19 04:55 - Physical Exam General Appearance: Yes: Nourished, Appropriately Dressed. No: Apparent Distress HEENT: positive: EOMI Neck: positive: Supple. negative: Carotid bruit Respiratory/Chest: positive: Lungs Clear, Normal Breath Sounds. negative: Respiratory Distress, Accessory Muscle Use, Crackles, Rales, Rhonchi, Stridor, Wheezing Cardiovascular: positive: Regular Rhythm, Regular Rate, S1, S2. negative: Edema , JVD, Murmur Vascular Pulses: Dorsalis-Pedis (R): 4+, Doralis-Pedis (L): 4+ Gastrointestinal/Abdominal: positive: Flat, Soft, Other (normal visual inspection without erythema, lesions, rash). negative: Pulsatile Mass, Protuberent, Distended, Guarding, Rebound, Tenderness Musculoskeletal: negative: CVA Tenderness Extremity: positive: Normal Capillary Refill, Normal Inspection, Normal Range of Motion Integumentary: positive: Normal Color, Dry, Warm Neurologic: positive: Fully Oriented, Alert, Normal Mood/Affect, Normal Response ED Treatment Course - LABORATORY CBC & Chemistry Diagram: 05/30/19 05:45 05/30/19 06:30 - ADDITIONAL ORDERS Additional order review: Laboratory Results 05/30/19 05/30/19 05/30/19 05:45 05:45 05:45 WBC 6.8 RBC 4.52 Hgb 9.9 L Hct 31.6 L MCV 70.0 L MCH 22.0 L MCHC 31.5 L RDW 16.8 H Plt Count 226 MPV 10.3 Absolute Neuts (auto) 3.2 Neutrophils % 47.5 Lymphocytes % 38.0 Monocytes % 11.9 H Eosinophils % 2.0 Basophils % 0.6 Nucleated RBC % 0 Sodium Cancelled Potassium Cancelled Chloride Cancelled Carbon Dioxide Cancelled Anion Gap Cancelled BUN Cancelled Creatinine Cancelled Est GFR (CKD-EPI)AfAm Cancelled Est GFR (CKD-EPI)NonAf Cancelled Random Glucose Cancelled Calcium Cancelled Total Bilirubin Cancelled AST Cancelled ALT Cancelled Alkaline Phosphatase Cancelled Total Protein Cancelled Albumin Cancelled Serum , Qual Cancelled 05/30/19 05:45 RBC 4.52 MCV 70.0 L MCHC 31.5 L RDW 16.8 H MPV 10.3 Neutrophils % 47.5 Lymphocytes % 38.0 Monocytes % 11.9 H Eosinophils % 2.0 Basophils % 0.6 - RADIOLOGY Radiology Studies Ordered: Category Date Time Status ABDOMEN & PELVIS CT WITH CONTR [CT] Stat CT Scan 05/30/19 05:40 Ordered Medical Decision Making - Medical Decision Making 05/30/19 06:58 33 yo female pmh asthma, gastric sleeve (11/2018 in [place]) presents to the ED after 1 week of NB/NB vomiting and diffuse abdominal pain. Pt states she has been unable to eat or drink solid foods for 1 week. Pain is diffuse abdomen, non radiating, described as achy cramping pain. Pt admits to diffuse back pain from her neck down to her lower back made worse with light palpation. Denies changes in bowel or bladder habits, recent illness, F/C, CP, SOB. vitals wnl Pt sitting upright in bed, ambulates without difficulty, NAD Labs and plain film ab x ray ordered and pending will s/o to day team for further care *DC/Admit/Observation/Transfer Diagnosis at time of Disposition: Abdominal pain - Discharge Dispostion Disposition: HOME Condition at time of disposition: Improved - Referrals - Patient Instructions Additional Instructions: Follow up with your primary care doctor within 3 days. Your care is not complete until you follow up. Return to the Emergency Department for increasing pain, chest pain, shortness of breath, vomiting, palpitations, lightheadedness, or any other new, worsening or concerning symptoms. ----- IMAGING REPORTS BELOW: CT Abdomen/Pelvis wiht IV and PO Contrast report: Name: [facility] DEPARTMENT OF RADIOLOGY Phys: Sofiya Schaffer RESIDENT : 1985 Age: 33 Sex : F [facility] Acct: [id number] Loc: [address] Exam Date: 05/30/19 Status: [place] [address] Unit Number: [id number] EXAM#: TYPE/EXAM: RESULT: [id number] CT/ ABDOMEN PELVIS CT WITH CONTR Abdomen and pelvis CT with intravenous contrast Clinical information: evaluate for acute pathology, recent gastric sleeve Multiplanar imaging was performed following the intravenous administration of nonionic contrast. Oral contrast was also administered. A 0.7 cm noncalcified nodule is noted within the right middle lobe without obvious interval change in comparison to prior abdomen/pelvic CT studies of 02/08/2019 and 01/16/2019. An unchanged 0.4 cm subpleural nodule is seen within the left lower lobe laterally. There is partial imaging of bilateral breast implants in place. No evidence of pneumoperitoneum or bowel obstruction. A trace amount of free fluid is seen within the pelvic cul-de-sac. Status post sleeve gastrectomy. Small hiatal hernia. The liver, spleen, gallbladder, adrenal glands and kidneys demonstrate no discrete abnormality. The aorta appears unremarkable in caliber. No obvious lymphadenopathy is noted. The appendix is not definitely visualized. There are no obvious indirect CT signs of acute appendicitis. No CT evidence of acute diverticulitis or obvious acute colitis. There is no gross small bowel pathology. Multiple intramural, subserosal and pedunculated uterine leiomyomas are noted. An IUD is seen in place without gross malposition. The visualized osseous structures demonstrate no obvious CT evidence of acute abnormality. Impression: No definite interval change is identified in comparison to prior CT exams. 0.7 cm right middle lobe and 0.4 cm left lower lobe pulmonary nodules are seen without definite interval change in comparison to prior CT studies as noted above. Correlation with 6 month follow- up chest CT is suggested to document continued stability. A trace amount of pelvic free fluid is noted. Status post sleeve gastrectomy. Small hiatal hernia. Enlarged fibroid uterus. IUD in place. Reported By: Ruddy Barraza MD 05/30/19 1334 Abdominal XR report: Name: [facility] DEPARTMENT OF RADIOLOGY Phys: Bri Hernandez MD : 1985 Age: 33 Sex: F [facility] Acct: [id number] Loc: [address] Exam Date: 05/30/19 Status: [facility] [id number] Unit Number: [id number] EXAM#: TYPE/EXAM: RESULT: [id number] RAD/ABDOMEN FLAT UPRIGHT Abdomen: Distention 2 views of the abdomen reveal an IUD in place, tampon artifact, pelvic phleboliths, retained stool in the colon compatible with mild constipation but no sign of a gross fecal impaction. Free air, organomegaly or upper abdominal calcifications of significance are not seen. There is some dense material seen in the bowel. Correlation recommended. If symptoms persist, further imaging with CT may be of help. Reported By: Ovidio Almanzar MD [id number] - Post Discharge Activity Forms/Work/School Notes: Back to Work
[2019-05-30] MEDS ORDERED: ONDANSETRON 4 MG/2 ML VIAL ONE (06:50)
[2019-05-30 07:04] LABS: ALBUMIN 3.7 g/dl (3.4-5.0); BILIRUBIN,TOTAL 0.2 mg/dL (0.2-1); BLOOD UREA NITROGEN 8.3 mg/dL (7-18); CALCIUM 8.7 mg/dL (8.5-10.1); CREATININE 0.6 mg/dL (0.55-1.3); POTASSIUM 3.8 mmol/L (3.5-5.1); TOT PROT 6.7 g/dl (6.4-8.2)
--- NOTE | 2019-05-30 07:14 | PDOC ---
*Physical Exam - Vital Signs Last Vital Signs Temp Pulse Resp BP Pulse Ox 98.3 F 60 18 115/89 100 05/30/19 04:55 05/30/19 04:55 05/30/19 04:55 05/30/19 04:55 05/30/19 04:55 ED Treatment Course - LABORATORY CBC & Chemistry Diagram: 05/30/19 05:45 05/30/19 06:30 - ADDITIONAL ORDERS Additional order review: Laboratory Results 05/30/19 05/30/19 05/30/19 06:30 06:30 06:30 Sodium 140 Potassium 3.8 Chloride 106 Carbon Dioxide 29 Anion Gap 5 L BUN 8.3 Creatinine 0.6 Est GFR (CKD-EPI)AfAm 138.80 Est GFR (CKD-EPI)NonAf 119.76 Random Glucose 89 Calcium 8.7 Total Bilirubin 0.2 AST 11 L ALT 13 Alkaline Phosphatase 72 Total Protein 6.7 Albumin 3.7 Lipase 155 Serum , Qual Negative 05/30/19 05/30/19 05:45 05:45 Sodium Cancelled Potassium Cancelled Chloride Cancelled Carbon Dioxide Cancelled Anion Gap Cancelled BUN Cancelled Creatinine Cancelled Est GFR (CKD-EPI)AfAm Cancelled Est GFR (CKD-EPI)NonAf Cancelled Random Glucose Cancelled Calcium Cancelled Total Bilirubin Cancelled AST Cancelled ALT Cancelled Alkaline Phosphatase Cancelled Total Protein Cancelled Albumin Cancelled Lipase Serum , Qual Cancelled 05/30/19 05:45 RBC 4.52 MCV 70.0 L MCHC 31.5 L RDW 16.8 H MPV 10.3 Neutrophils % 47.5 Lymphocytes % 38.0 Monocytes % 11.9 H Eosinophils % 2.0 Basophils % 0.6 - Medications Given in the ED: ED Medications Discontinued Medications Generic Name Dose Route Start Last Admin Trade Name Freq PRN Reason Stop Dose Admin Acetaminophen 1,000 mg 05/30/19 06:35 05/30/19 06:43 Ofirmev Injection - IVPB 05/30/19 06:36 1,000 mg ONCE ONE Administration Ondansetron HCl 4 mg 05/30/19 06:39 05/30/19 06:54 Zofran Injection IVPUSH 05/30/19 06:40 4 mg ONCE ONE Administration Medical Decision Making - Medical Decision Making Pt signed out to me by Dr. Vines. 33 year old female with PMH asthma, gastric sleeve presented to ED for abdominal pain. Initial Vital Signs Temp Pulse Resp BP Pulse Ox 98.3 F 60 18 115/89 100 05/30/19 04:55 05/30/19 04:55 05/30/19 04:55 05/30/19 04:55 05/30/19 04:55 Afebrile. No tachycardia. No tachypnea. No hypotension. No hypoxia on room air. CBC WBC 6.8 K/mm3 (4.0-10.0) 05/30/19 05:45 RBC 4.52 M/mm3 (3.60-5.2) 05/30/19 05:45 Hgb 9.9 GM/dL (10.7-15.3) L 05/30/19 05:45 Hct 31.6 % (32.4-45.2) L 05/30/19 05:45 MCV 70.0 fl (80-96) L 05/30/19 05:45 MCH 22.0 pg (25.7-33.7) L 05/30/19 05:45 MCHC 31.5 g/dl (32.0-36.0) L 05/30/19 05:45 RDW 16.8 % (11.6-15.6) H 05/30/19 05:45 Plt Count 226 K/MM3 (134-434) 05/30/19 05:45 MPV 10.3 fl (7.5-11.1) 05/30/19 05:45 Absolute Neuts (auto) 3.2 K/mm3 (1.5-8.0) 05/30/19 05:45 Neutrophils % 47.5 % (42.8-82.8) 05/30/19 05:45 Lymphocytes % 38.0 % (8-40) 05/30/19 05:45 Monocytes % 11.9 % (3.8-10.2) H 05/30/19 05:45 Eosinophils % 2.0 % (0-4.5) 05/30/19 05:45 Basophils % 0.6 % (0-2.0) 05/30/19 05:45 Nucleated RBC % 0 % (0-0) 05/30/19 05:45 No leukocytosis. Microcytic anemia. CMP Sodium 140 mmol/L (136-145) 05/30/19 06:30 Potassium 3.8 mmol/L (3.5-5.1) 05/30/19 06:30 Chloride 106 mmol/L (98-107) 05/30/19 06:30 Carbon Dioxide 29 mmol/L (21-32) 05/30/19 06:30 Anion Gap 5 MMOL/L (8-16) L 05/30/19 06:30 BUN 8.3 mg/dL (7-18) 05/30/19 06:30 Creatinine 0.6 mg/dL (0.55-1.3) 05/30/19 06:30 Est GFR (CKD-EPI)AfAm 138.80 05/30/19 06:30 Est GFR (CKD-EPI)NonAf 119.76 05/30/19 06:30 Random Glucose 89 mg/dL (74-106) 05/30/19 06:30 Calcium 8.7 mg/dL (8.5-10.1) 05/30/19 06:30 Total Bilirubin 0.2 mg/dL (0.2-1) 05/30/19 06:30 AST 11 U/L (15-37) L 05/30/19 06:30 ALT 13 U/L (13-61) 05/30/19 06:30 Alkaline Phosphatase 72 U/L (45-117) 05/30/19 06:30 Total Protein 6.7 g/dl (6.4-8.2) 05/30/19 06:30 Albumin 3.7 g/dl (3.4-5.0) 05/30/19 06:30 Lipase 155 U/L (73-393) 05/30/19 06:30 Serum , Qual Negative 05/30/19 06:30 No electrolyte abnormalities. No KRISTY. No transaminitis. Lipase wnl. Serum negative. 05/30/19 07:58 Abdominal XR report: Name: [facility] Phys: Bri Hernandez MD : 1985 Age: 33 Sex: F [facility] Acct: [id number] Loc: [address] Exam Date: 05/30/19 Status: REG [place] [id number] Unit Number: [id number] EXAM#: TYPE/EXAM: RESULT: [id number] RAD/ABDOMEN FLAT UPRIGHT Abdomen: Distention 2 views of the abdomen reveal an IUD in place, tampon artifact, pelvic phleboliths, retained stool in the colon compatible with mild constipation but no sign of a gross fecal impaction. Free air, organomegaly or upper abdominal calcifications of significance are not seen. There is some dense material seen in the bowel. Correlation recommended. If symptoms persist, further imaging with CT may be of help. Reported By: Ovidio Almanzar MD [id number] with PO and IV contrast. 05/30/19 10:02 Pt encouraged to continue drinking PO contrast. 05/30/19 13:53 CT report: Name: [facility]OLOG[facility] Phys: Sofiya Schaffer RESIDENT : 1985 Age: 33 Sex: F [facility] Acct: [id number] Loc: [address] Exam Date: 05/30/19 Status: [place] [id number] Unit Number: [id number] EXAM#: TYPE/EXAM: RESULT: [id number] CT/ABDOMEN PELVIS CT WITH CONTR Abdomen and pelvis CT with intravenous contrast Clinical information: evaluate for acute pathology, recent gastric sleeve Multiplanar imaging was performed following the intravenous administration of nonionic contrast. Oral contrast was also administered. A 0.7 cm noncalcified nodule is noted within the right middle lobe without obvious interval change in comparison to prior abdomen/pelvic CT studies of 02/08/2019 and 01/16/2019. An unchanged 0.4 cm subpleural nodule is seen within the left lower lobe laterally. There is partial imaging of bilateral breast implants in place. No evidence of pneumoperitoneum or bowel obstruction. A trace amount of free fluid is seen within the pelvic cul-de-sac. Status post sleeve gastrectomy. Small hiatal hernia. The liver, spleen, gallbladder, adrenal glands and kidneys demonstrate no discrete abnormality. The aorta appears unremarkable in caliber. No obvious lymphadenopathy is noted. The appendix is not definitely visualized. There are no obvious indirect CT signs of acute appendicitis. No CT evidence of acute diverticulitis or obvious acute colitis. There is no gross small bowel pathology. Multiple intramural, subserosal and pedunculated uterine leiomyomas are noted. An IUD is seen in place without gross malposition. The visualized osseous structures demonstrate no obvious CT evidence of acute abnormality. Impression: No definite interval change is identified in comparison to prior CT exams. 0.7 cm right middle lobe and 0.4 cm left lower lobe pulmonary nodules are seen without definite interval change in comparison to prior CT studies as noted above. Correlation with 6 month follow- up chest CT is suggested to document continued stability. A trace amount of pelvic free fluid is noted. Status post sleeve gastrectomy. Small hiatal hernia. Enlarged fibroid uterus. IUD in place. Reported By: Ruddy Barraza MD 05/30/19 1334 Pt informed of results. Tolerated PO challenge. Pt discharged. Pt advised to have [address] chest for pulmonary nodules. *DC/Admit/Observation/Transfer Diagnosis at time of Disposition: Abdominal pain - Discharge Dispostion Disposition: HOME Condition at time of disposition: Improved Decision to Admit order: No - Referrals - Patient Instructions Additional Instructions: Follow up with your primary care doctor within 3 days. Your care is not complete until you follow up. Return to the Emergency Department for increasing pain, chest pain, shortness of breath, vomiting, palpitations, lightheadedness, or any other new, worsening or concerning symptoms. ----- IMAGING REPORTS BELOW: CT Abdomen/Pelvis wiht IV and PO Contrast report: Name: [facility] OF RADIOLOGY Phys: Sofiya Schaffer RESIDENT : 1985 Age: 33 Sex : F [facility] Acct: [id number] Loc: [address] Exam Date: 05/30/19 Status: [place] [id number] Unit Number: [id number] EXAM#: TYPE/EXAM: RESULT: CT/ ABDOMEN PELVIS CT WITH CONTR Abdomen and pelvis CT with intravenous contrast Clinical information: evaluate for acute pathology, recent gastric sleeve Multiplanar imaging was performed following the intravenous administration of nonionic contrast. Oral contrast was also administered. A 0.7 cm noncalcified nodule is noted within the right middle lobe without obvious interval change in comparison to prior abdomen/pelvic CT studies of 02/08/2019 and 01/16/2019. An unchanged 0.4 cm subpleural nodule is seen within the left lower lobe laterally. There is partial imaging of bilateral breast implants in place. No evidence of pneumoperitoneum or bowel obstruction. A trace amount of free fluid is seen within the pelvic cul-de-sac. Status post sleeve gastrectomy. Small hiatal hernia. The liver, spleen, gallbladder, adrenal glands and kidneys demonstrate no discrete abnormality. The aorta appears unremarkable in caliber. No obvious lymphadenopathy is noted. The appendix is not definitely visualized. There are no obvious indirect CT signs of acute appendicitis. No CT evidence of acute diverticulitis or obvious acute colitis. There is no gross small bowel pathology. Multiple intramural, subserosal and pedunculated uterine leiomyomas are noted. An IUD is seen in place without gross malposition. The visualized osseous structures demonstrate no obvious CT evidence of acute abnormality. Impression: No definite interval change is identified in comparison to prior CT exams. 0.7 cm right middle lobe and 0.4 cm left lower lobe pulmonary nodules are seen without definite interval change in comparison to prior CT studies as noted above. Correlation with 6 month follow- up chest CT is suggested to document continued stability. A trace amount of pelvic free fluid is noted. Status post sleeve gastrectomy. Small hiatal hernia. Enlarged fibroid uterus. IUD in place. Reported By: Ruddy Barraza MD 05/30/19 1334 Abdominal XR report: Name: [facility] RADIOLOGY Phys: Bri Hernandez MD : 1985 Age: 33 Sex: F [facility] Acct: [id number] Loc: [address] Exam Date: 05/30/19 Status: [place] [id number] Unit Number: [id number] EXAM#: TYPE/EXAM: RESULT: [id number] RAD/ABDOMEN FLAT UPRIGHT Abdomen: Distention 2 views of the abdomen reveal an IUD in place, tampon artifact, pelvic phleboliths, retained stool in the colon compatible with mild constipation but no sign of a gross fecal impaction. Free air, organomegaly or upper abdominal calcifications of significance are not seen. There is some dense material seen in the bowel. Correlation recommended. If symptoms persist, further imaging with CT may be of help. Reported By: Ovidio Almanzar MD [id number] - Post Discharge Activity Forms/Work/School Notes: Back to Work
[2019-05-30 07:31] VITALS: BP 112/64; PULSE 62; TEMP 98.8
[2019-05-30 08:56] LABS: ANISOCYTOSIS 1+; MACROCYTOSIS 0; PLATELET ESTIMATE NORMAL; TARGET CELLS 1+; TEAR DROP CELLS 1+
[2019-05-30] MEDS ORDERED: KETOROLAC TROMETHAMINE 30 MG/1 ML VIAL IVPUSH ONE (13:59)
[2019-05-30] MEDS ORDERED: KETOROLAC TROMETHAMINE 30 MG/1 ML VIAL ONE (14:07)
== END 2019-05-30 14:11 | disposition home or self-care (01) ==
LOC: JER 04:37
PROC: 3E0337Z Introduction of Electrolytic and Water Balance Substance into Peripheral Vein, Percutaneous Approach (ICD-10-PCS; principal; 2019-05-30)
PROC: 3E033NZ Introduction of Analgesics, Hypnotics, Sedatives into Peripheral Vein, Percutaneous Approach (ICD-10-PCS; 2019-05-30)
PROC: 3E033GC Introduction of Other Therapeutic Substance into Peripheral Vein, Percutaneous Approach (ICD-10-PCS; 2019-05-30)
PROC: 3E0333Z Introduction of Anti-inflammatory into Peripheral Vein, Percutaneous Approach (ICD-10-PCS; 2019-05-30)
DX: R10.9 Unspecified abdominal pain (principal); Z98.84 Bariatric surgery status
CPT/HCPCS: 36415; 74019-TC-FY; 74177-TC; 80053; 83690; 84703; 85025; 96361; 96374; 96375; 99283-25; J0131; J7030

== ENCOUNTER 2019-08-19 01:33 | Emergency (ER) | payer OTHER ==
--- NOTE | 2019-08-19 02:40 | PDOC ---
History of Present Illness - General Chief Complaint: Cold Symptoms Stated Complaint: COUGH,FEVER,VOMITING Time Seen by Provider: 08/19/19 02:37 History Source: Patient - History of Present Illness Initial Comments: 08/19/19 03:19 33-year-old female with history of asthma complaining of chest congestion, nasal congestion, cough with one episode of vomiting and diarrhea for the last 2 days. Patient reports that her symptoms are worsening. T-max 102 at home yesterday. Patient reports that she ran out of her albuterol at home. PMHX: one intubation for asthma at 19 years old. + ICU admission Past History - Past Medical History Allergies/Adverse Reactions: Allergies Allergy/AdvReac Type Severity Reaction Status Date / Time No Known Allergies Allergy Verified 08/19/19 02:55 Home Medications: Ambulatory Orders Albuterol Sulfate Inhaler - [Ventolin HFA Inhaler -] 1 - 2 inh PO Q4H PRN #1 inhaler 08/19/19 Cefdinir [Omnicef -] 300 mg PO BID #14 capsule 08/19/19 predniSONE [Deltasone -] 60 mg PO UTDICT #15 tablet 08/19/19 Asthma: Yes COPD: No - Surgical History GI Surgery: Yes (sleeve) - Reproductive History Therapeutic (s) & number: No - Immunization History Immunization Up to Date: Yes - Psycho Social/Smoking Cessation Hx Smoking History: Unknown if ever smoked Have you smoked in the past 12 months: No Hx Alcohol Use: No Drug/Substance Use Hx: No Respiratory Specific PMHX - Complaint Specific PMHX Hx Bronchitis: Yes Review of Systems - Review of Systems Able to Perform ROS?: Yes Is the patient limited Senegalese proficient: No Constitutional: Yes: Fever HEENTM: No: Throat Pain, Throat Swelling Respiratory: Yes: Cough ABD/GI: Yes: Diarrhea, Nausea, Vomiting : No: Symptoms Reported, See HPI, Burning, Dysuria, Discharge, Frequency, Flank Pain, Hematuria, Incontinence, Pain, Urgency, Testicular Mass, Testicular Swelling, Lesions, Testicular Pain, Other *Physical Exam - Vital Signs 08/19/19 03:20 Last Vital Signs Temp Pulse Resp BP Pulse Ox 98.4 F 79 18 121/79 97 08/19/19 01:35 08/19/19 01:35 08/19/19 03:10 08/19/19 01:35 08/19/19 03:10 - Physical Exam General Appearance: Yes: Appropriately Dressed HEENT: positive: Normal ENT Inspection Respiratory/Chest: positive: Decreased Breath Sounds (at bases). negative: Accessory Muscle Use Cardiovascular: positive: Regular Rhythm, Regular Rate Extremity: positive: Normal Capillary Refill, Normal Inspection, Normal Range of Motion Integumentary: positive: Normal Color, Dry, Warm Neurologic: positive: Fully Oriented, Alert, Normal Mood/Affect ED Progress Note - Progress Note Progress Note: 08/19/19 03:22 A: Flu like symptoms; RAD P: chest xray duoneb solumedrol Influenza Medical Decision Making - Medical Decision Making 08/19/19 05:51 patient slight improvement will magnesium IV, patient reports that she slipped and feell backward c/o lower back pain. patient has no midline tenbderness Discharge - Discharge Information Problems reviewed: Yes Clinical Impression/Diagnosis: Bronchitis Reactive airway disease Qualifiers: Asthma severity: moderate Asthma persistence: persistent Asthma complication type: uncomplicated Qualified Code(s): J45.40 - Moderate persistent asthma, uncomplicated Condition: Fair Disposition: HOME - Additional Discharge Information Prescriptions: Albuterol Sulfate Inhaler - [Ventolin HFA Inhaler -] 1 - 2 inh PO Q4H PRN #1 inhaler PRN Reason: Asthma Cefdinir [Omnicef -] 300 mg PO BID #14 capsule predniSONE [Deltasone -] 60 mg PO UTDICT #15 tablet - Follow up/Referral Referrals: Santy Bardales MD [Primary Care Provider] - - Patient Discharge Instructions Patient Printed Discharge Instructions: DI for Acute Bronchitis Additional Instructions: Use albuterol every 4 hours as needed for cough. Take prednisone as prescribed. Take cefdinir as prescribed starting tomorrow. Your first dose was given here in the emergency room Follow-up with your primary doctor soon as possible. Return to the emergency room for any worsening symptoms. - Post Discharge Activity Work/Back to School Note: Back to Work
--- NOTE | 2019-08-19 02:43 | PDOC ---
Medical Decision Making - Medical Decision Making 08/19/19 02:43 Patient seen by the advanced practice provider under my direct supervision. Ancillary testing reviewed as necessary. I agree with plan as outlined by the advanced practice provider. Discharge - Discharge Information Problems reviewed: Yes Clinical Impression/Diagnosis: Flu-like symptoms Reactive airway disease Qualifiers: Asthma severity: moderate Asthma complication type: uncomplicated Condition: Fair - Follow up/Referral - Patient Discharge Instructions - Post Discharge Activity
[2019-08-19 02:55] VITALS: BMI 146.2
[2019-08-19] MEDS ORDERED: ALBUTEROL SO4 2.5/IPRATROPIUM 0.5 INH SOL 3 ML VIAL.NEB. NEB ONE ×4 (03:13→06:01)
[2019-08-19] MEDS ORDERED: methylPREDNISolone NA SUCC 125 MG/2 ML VIAL IVPUSH ONE (03:16)
[2019-08-19] MEDS ORDERED: methylPREDNISolone NA SUCC 125 MG/2 ML VIAL ONE (04:40)
[2019-08-19] MEDS ORDERED: CEFTRIAXONE 1 GM in DEXTROSE 5%-WATER - 50 ML IVPB ONE (05:06)
[2019-08-19] MEDS ORDERED: CEFTRIAXONE 1 GM/50 ML BAG ONE (05:07)
[2019-08-19] MEDS ORDERED: SODIUM CHLORIDE 1,000 ML IV SCH (05:30)
[2019-08-19] MEDS: ALBUTEROL SO4 2.5/IPRATROPIUM 0.5 INH SOL 3 ML VIAL.NEB. NEB SCH ×3 (05:33→06:16)
[2019-08-19] MEDS ORDERED: MAGNESIUM SULF 50% (8.12 MEQ/2 ML-1 GM VIAL) IVPB ONE (05:50)
[2019-08-19] MEDS ORDERED: KETOROLAC TROMETHAMINE 30 MG/1 ML VIAL IVPUSH ONE (05:50)
[2019-08-19] MEDS ORDERED: SODIUM CHLORIDE 0.9% 500 ML INFUS.BAG IV ONE (05:50)
[2019-08-19] MEDS ORDERED: ALBUTEROL SO4 0.083% IH SOL 2.5 MG/3 ML VIAL.NEB. NEB ONE ×2 (05:51→06:01)
[2019-08-19] MEDS ORDERED: MAGNESIUM 1GM/D5W - 2 GM/200 ML IVPB IVPB ONE (06:01)
[2019-08-19] MEDS ORDERED: KETOROLAC TROMETHAMINE 30 MG/1 ML VIAL ONE (06:01)
--- NOTE | 2019-08-19 07:34 | PDOC ---
*Physical Exam - Vital Signs Last Vital Signs Temp Pulse Resp BP Pulse Ox 98.4 F 68 18 115/84 98 08/19/19 01:35 08/19/19 06:53 08/19/19 06:53 08/19/19 06:53 08/19/19 07:20 - Physical Exam General Appearance: No: Apparent Distress Respiratory/Chest: positive: Other (poor inspiratory effort). negative: Respiratory Distress, Accessory Muscle Use, Rhonchi, Stridor, Wheezing Cardiovascular: positive: Regular Rhythm, Regular Rate, S1, S2. negative: Murmur Integumentary: positive: Normal Color Neurologic: positive: Alert ED Treatment Course - Medications Given in the ED: ED Medications Discontinued Medications Generic Name Dose Route Start Last Admin Trade Name Freq PRN Reason Stop Dose Admin Albuterol Sulfate 1 amp 08/19/19 05:51 08/19/19 06:12 Ventolin 0.083% Nebulizer Soln - NEB 08/19/19 05:52 1 amp ONCE ONE Administration Albuterol/Ipratropium 1 amp 08/19/19 03:13 08/19/19 04:46 Duoneb - NEB 08/19/19 03:14 1 amp ONCE ONE Administration Albuterol/Ipratropium 1 amp 08/19/19 05:15 08/19/19 06:16 Duoneb - NEB 08/19/19 06:01 1 amp Q15M OSMAN Administration Ceftriaxone Sodium 1 gm/ 50 mls @ 200 mls/hr 08/19/19 05:06 08/19/19 05:33 Dextrose IVPB 08/19/19 05:20 200 mls/hr ONCE ONE Administration Protocol Ketorolac Tromethamine 30 mg 08/19/19 05:50 08/19/19 06:12 Toradol Injection - IVPUSH 08/19/19 05:51 30 mg ONCE ONE Administration Magnesium Sulfate 2 gm 08/19/19 05:50 08/19/19 06:11 Magnesium Sulfate IVPB 08/19/19 05:51 2 gm ONCE ONE Administration Methylprednisolone Sodium Succinate 125 mg 08/19/19 03:16 08/19/19 05:06 Solu-Medrol - IVPUSH 08/19/19 03:17 125 mg ONCE ONE Administration Sodium Chloride 1,000 ml 08/19/19 05:50 08/19/19 06:11 Normal Saline - IV 08/19/19 05:51 1,000 ml ONCE ONE Administration Medical Decision Making - Medical Decision Making Patient signed out to me by ISABEL Newell Patient feeling a bit better on reassessment CXR negative Flu was negative Patient hemodynamically stable and appears well stable for dc 08/19/19 07:33 Discharge - Discharge Information Problems reviewed: Yes Clinical Impression/Diagnosis: Bronchitis Reactive airway disease Qualifiers: Asthma severity: moderate Asthma persistence: persistent Asthma complication type: uncomplicated Qualified Code(s): J45.40 - Moderate persistent asthma, uncomplicated Condition: Fair Disposition: HOME - Additional Discharge Information Prescriptions: Albuterol Sulfate Inhaler - [Ventolin HFA Inhaler -] 1 - 2 inh PO Q4H PRN #1 inhaler PRN Reason: Asthma Cefdinir [Omnicef -] 300 mg PO BID #14 capsule predniSONE [Deltasone -] 60 mg PO UTDICT #15 tablet - Follow up/Referral Referrals: Santy Bardales MD [Primary Care Provider] - - Patient Discharge Instructions Patient Printed Discharge Instructions: DI for Acute Bronchitis Additional Instructions: Use albuterol every 4 hours as needed for cough. Take prednisone as prescribed. Take cefdinir as prescribed starting tomorrow. Your first dose was given here in the emergency room Follow-up with your primary doctor soon as possible. Return to the emergency room for any worsening symptoms. - Post Discharge Activity Work/Back to School Note: Back to Work
[2019-08-19 08:26] VITALS: BP 121/82; PULSE 73; TEMP 97.9
--- NOTE | 2019-08-19 09:59 | EKG ---
Test Reason : Blood Pressure : / mmHG Vent. Rate : 072 BPM Atrial Rate : 072 BPM P-R Int : 128 ms QRS Dur : 086 ms QT Int : 422 ms P-R-T Axes : 048 076 039 degrees QTc Int : 462 ms NORMAL SINUS RHYTHM WITH SINUS ARRHYTHMIA NORMAL ECG WHEN COMPARED WITH ECG OF 08-FEB-2019 02:00, NO SIGNIFICANT CHANGE WAS FOUND Confirmed by KYLE CERVANTES, NABIL ([id number]) on 08/19/2019 9:59:09 AM Referred By: Confirmed By:NABIL WRIGHT MD
== END 2019-08-19 08:00 | disposition home or self-care (01) ==
LOC: JER 01:33
PROC: 3E0F7GC Introduction of Other Therapeutic Substance into Respiratory Tract, Via Natural or Artificial Opening (ICD-10-PCS; principal; 2019-08-19)
PROC: 3E03329 Introduction of Other Anti-infective into Peripheral Vein, Percutaneous Approach (ICD-10-PCS; 2019-08-19)
PROC: 3E0333Z Introduction of Anti-inflammatory into Peripheral Vein, Percutaneous Approach (ICD-10-PCS; 2019-08-19)
PROC: 3E033GC Introduction of Other Therapeutic Substance into Peripheral Vein, Percutaneous Approach (ICD-10-PCS; 2019-08-19)
DX: J45.40 Moderate persistent asthma, uncomplicated (principal); Z98.84 Bariatric surgery status; J45.909 Unspecified asthma, uncomplicated
CPT/HCPCS: 71046-TC-FY; 87804; 93005; 93010; 94640; 96365; 96375; 99283-25

== ENCOUNTER 2019-09-17 03:17 | Emergency (ER) | payer OTHER ==
[2019-09-17] MEDS ORDERED: ALBUTEROL SO4 2.5/IPRATROPIUM 0.5 INH SOL 3 ML VIAL.NEB. NEB ONE (03:22)
[2019-09-17] MEDS ORDERED: DEXAMETHASONE SOD PHOSPHATE 10 MG/1 ML VIAL ONE (03:22)
[2019-09-17 03:24] VITALS: TEMP 97.9; BMI 27.0
--- NOTE | 2019-09-17 03:40 | PDOC ---
History of Present Illness - General Chief Complaint: Asthma Stated Complaint: ASTHMA Time Seen by Provider: 09/17/19 03:25 - History of Present Illness Initial Comments: Lakshmi Armstrong is a 33yo woman with a PMH of asthma, provoked DVT several years ago (no longer on treatment) who presents reporting that she felt she was wheezing at home and could not find her inhaler. She reports using her inhaler 8 -10 times per day, and she also has a daily maintenance inhaler. She generally receives steroids 2-3 times per year, generally in the winter. She most recently was prescribed steroids about a month ago. Ms Armstrong received two nebulizer treatments and 10mg dexamethasone per EMS on the way to the hospital and is feeling improved. Past History - Past Medical History Allergies/Adverse Reactions: Allergies Allergy/AdvReac Type Severity Reaction Status Date / Time No Known Allergies Allergy Verified 08/19/19 02:55 Home Medications: Ambulatory Orders Cefdinir [Omnicef -] 300 mg PO BID #14 capsule 08/19/19 predniSONE [Deltasone -] 60 mg PO UTDICT #15 tablet 08/19/19 Albuterol Sulfate Inhaler - [Ventolin HFA Inhaler -] 1 - 2 inh PO Q4H PRN #1 inhaler 09/17/19 Fluticasone/Salmeterol [Advair 250-50 Diskus] 1 each IH DAILY #1 blst.w.dev 11/05 Asthma: Yes COPD: No - Surgical History GI Surgery: Yes (sleeve) - Reproductive History Therapeutic (s) & number: No - Immunization History Immunization Up to Date: Yes - Psycho Social/Smoking Cessation Hx Smoking History: Never smoked Have you smoked in the past 12 months: No Information on smoking cessation initiated: No Hx Alcohol Use: No Drug/Substance Use Hx: No Review of Systems - Review of Systems Comments:: General: No fevers, no chills, no weight or appetite change, no malaise HEENT: No changes in vision, no changes in hearing, no congestion, no sore throat CV: No chest pain, no palpitations, no LE edema Pulm: See HPI GI: No nausea or vomiting, no change in bowel habits, no melena : No frequency, no urgency, no dysuria Musc: No back pain, no joint swelling, no recent injury Skin: No rash, no lesions, no erythema Endo: No excessive thirst, no heat/cold intolerance Heme: No unusual bruising or bleeding, no swollen glands Neuro: No syncope, no numbness/tingling, no focal weakness Vasc: No claudication Psych: No recent change in mood, no SI or HI *Physical Exam - Vital Signs Last Vital Signs Temp Pulse Resp BP Pulse Ox 97.9 F 82 20 136/79 100 09/17/19 03:23 09/17/19 03:23 09/17/19 03:23 09/17/19 03:23 09/17/19 03:23 - Physical Exam General: Comfortable, no acute distress HEENT: Atraumatic, PERRL, EOMI, MMM, voice normal Cards: RRR, no murmur appreciated Pulm: Comfortable on room air. Very poor effort on exam, but no wheezing or crackles appreciated Abd: Soft, nontender, nondistended Ext: Atraumatic. No LE edema. WWP Skin: Normal color, no rashes or lesions Neuro: A&Ox3, CN grossly intact, normal speech, motor/sensory grossly intact and symmetric Psych: Mood appropriate to situation Medical Decision Making - Medical Decision Making 09/17/19 03:40 Lakshmi Armstrong is a 33yo woman with a PMH of asthma, provoked DVT several years ago (no longer on treatment) who presents reporting that she felt she was wheezing at home and could not find her inhaler. - No wheezing appreciated on exam, but poor effort. Breathing comfortably, no accessory muscle use, stats 100% on RA - Additional albuterol treatments in the ED per pt request, states she still feels her breathing is tight - Steroids given already - Will give prescription for new inhaler 09/17/19 04:35 - Feeling significantly improved - Prescriptions for albuterol and Advair sent - Advised regarding home care, follow up, return precautions. Pt states understanding and agreement. 09/17/19 05:12 - Pt endorsed lightheadedness to Dr Lozada on evaluation. - EKG to evchristo for arrhythmia. EKG w/ NSR, HR 95, normal axis, normal intervals, no concerning ST or t-wave changes - Discharge home Discussed with Dr Kierra Mancuso PGY2 Discharge - Discharge Information Problems reviewed: Yes Clinical Impression/Diagnosis: Asthma Qualifiers: Asthma severity: moderate Asthma persistence: unspecified Asthma complication type: uncomplicated Qualified Code(s): J45.909 - Unspecified asthma, uncomplicated Condition: Stable Disposition: HOME - Admission No - Additional Discharge Information Prescriptions: Albuterol Sulfate Inhaler - [Ventolin HFA Inhaler -] 1 - 2 inh PO Q4H PRN #1 inhaler PRN Reason: Asthma Fluticasone/Salmeterol [Advair 250-50 Diskus] 1 each IH DAILY #1 blst.w.dev - Follow up/Referral Referrals: [facility] [place] [Provider Group] - Patient Discharge Instructions Patient Printed Discharge Instructions: Asthma -- Adult Additional Instructions: Discharge instructions: You were seen in the emergency department for difficulty breathing due to asthma. Your symptoms improved after treatment. Home Care: - Continue to use your albuterol inhaler as instructed, 1-2 puffs every 4 hours as needed for wheezing or difficulty breathing. - Make an appointment to see your regular doctor within the next week to discuss your asthma symptoms. If you need a new doctor, you have been given information for the [facility] clinic. - Make an appointment to see your regular dental financial coordinator within the next 1-2 weeks. You may need additional testing or treatment as you indicated you are using your inhaler frequently at home. If you need a new dental financial coordinator, you have been referred to Dr Campa. - Seek immediate care for symptoms that do not improve with medication, if you need your inhaler more often than every 4 hours, or any other medical emergency. - Post Discharge Activity
[2019-09-17] MEDS ORDERED: ALBUTEROL SO4 0.083% IH SOL 2.5 MG/3 ML VIAL.NEB. NEB ONE (03:51)
[2019-09-17] MEDS: ALBUTEROL SO4 0.083% IH SOL 2.5 MG/3 ML VIAL.NEB. NEB SCH ×2 (04:00→04:16)
--- NOTE | 2019-09-17 04:03 | PDOC ---
Attending Attestation - Resident Resident Name: Julia Mancuso - ED Attending Attestation I have performed the following: I have examined & evaluated the patient, The case was reviewed & discussed with the resident, I agree w/resident's findings & plan - HPI HPI: 09/17/19 04:01 33yo woman with a PMH of asthma, provoked DVT several years ago (no longer on treatment) who presents reporting that she felt she was wheezing at home and could not find her inhaler. She reports using her inhaler 8-10 times per day, and she also has a daily maintenance inhaler (advair diskus). She generally receives steroids 2-3 times per year, generally in the winter. She most recently was prescribed steroids about a month ago. she two nebulizer treatments and 10mg dexamethasone per EMS on the way to the hospital and is feeling improved. had episode of dizziness earlier tonight, since resolved no cp or sob. no neuro changes denies particular triggers. 09/17/19 04:51 09/17/19 04:52 - Physicial Exam PE: 09/17/19 04:01 Agree with the resident's HPI and PE as documented in the electronic medical record. NAD, well appearing, EOMI, PERRL, nl conjunctiva, anicteric; neck supple. lungs clear, mild tachycaredia (just finished albuterol nebulizer tx via mask), abdomen soft nontender. No rebound, no guarding. Back nontender. EMERSON x4, no focal neuro deficits. No peripheral edema. normal color for ethnicity, WWP. no calf tenderness. 09/17/19 04:52 - Medical Decision Making 09/17/19 04:01 Vital Signs Temp Pulse Resp BP Pulse Ox 97.9 F 82 20 136/79 100 09/17/19 03:23 09/17/19 03:23 09/17/19 03:23 09/17/19 03:23 09/17/19 03:23 ddx. asthma, viral syndrome. pleurisy doubt cardiac/ACS given duonebs en route and dexamethasone, up to 48 hr half life will be covered additional duoneb lungs much improved. clear no respiratory distress rx albuterol inhaler, spacer rx advair disckus Pt to be discharged in stable condition. Patient made aware of clinical impression, treatment recommendations and disposition plan, return precautions discussed (including but not limited to new or persistent/worsening symptoms, pain, fevers, or signs of infection, chest pain, respiratory distress, inability to tolerate oral intake, dehydration, syncope, or neurologic changes) . Follow up with PMD and/or pulm specialist as recommended, follow up information provided, take medications as instructed for duration of time. continue with supportive care, avoid triggers and precipitants. All questions answered to patient's satisfaction and expressed understanding and comfort with this. At the time of discharge, the patient is alert, clinically improved, tolerating po and verbalizes understanding of instructions, satisfied with the care received and felt comfortable with the plan. Patient does not suffer from an acute life-threatening medical condition at this time and is safe for outpatient follow-up. 09/17/19 04:41 Heart Score/ECG Review #1 ECG reviewed & interpreted by me at: 05:05 General ECG Interpretation: Sinus Rhythm, Normal Rate, Normal Intervals Compared to previous ECG there are: No significant change 09/17/19 05:08 EKG normal sinus rhythm at 95 bpm, no interval abnormalities, narrow QRS, ST and T wave segments and morphology normal. Nonspecific T wave abnormalities
[2019-09-17 05:37] VITALS: BP 131/83; PULSE 76
--- NOTE | 2019-09-17 11:50 | EKG ---
Test Reason : Blood Pressure : / mmHG Vent. Rate : 095 BPM Atrial Rate : 095 BPM P-R Int : 136 ms QRS Dur : 096 ms QT Int : 340 ms P-R-T Axes : 084 087 -12 degrees QTc Int : 427 ms NORMAL SINUS RHYTHM WITH SINUS ARRHYTHMIA ABNORMAL ECG WHEN COMPARED WITH ECG OF 19-AUG-2019 02:39, T WAVE INVERSION NOW EVIDENT IN INFERIOR LEADS T WAVE INVERSION NOW EVIDENT IN ANTERIOR LEADS Confirmed by LIUDMILA CERVANTES, STEPHANIE ([id number]) on 09/17/2019 11:50:29 AM Referred By: Confirmed By:STEPHANIE NUR MD
== END 2019-09-17 05:35 | disposition home or self-care (01) ==
LOC: JER 03:17
PROC: 3E0F7GC Introduction of Other Therapeutic Substance into Respiratory Tract, Via Natural or Artificial Opening (ICD-10-PCS; principal; 2019-09-17)
DX: J45.909 Unspecified asthma, uncomplicated (principal); Z86.718 Personal history of other venous thrombosis and embolism
CPT/HCPCS: 93005; 93010; 99282-25

== ENCOUNTER 2019-09-29 01:15 | Emergency (ER) | payer OTHER ==
[2019-09-29] MEDS ORDERED: ONDANSETRON 4 MG/2 ML VIAL IVPUSH ONE (02:41)
[2019-09-29] MEDS ORDERED: SODIUM CHLORIDE 0.9% 500 ML INFUS.BAG IV ONE (02:41)
[2019-09-29 02:51] VITALS: BMI 24.2
--- NOTE | 2019-09-29 03:04 | PDOC ---
Attending Attestation - Resident Resident Name: Julia Mancuso - ED Attending Attestation I have performed the following: I have examined & evaluated the patient, The case was reviewed & discussed with the resident, I agree w/resident's findings & plan - HPI HPI: 09/29/19 23:30 see resident hpi - Physicial Exam PE: 09/29/19 23:30 agree with resident exam - Medical Decision Making 09/29/19 23:30 Well-appearing 34-year-old female with abdominal pain vomiting and diarrhea CT scan shows no bowel abnormality There is questionable abnormality of the gallbladder wall Patient is feeling better after IV fluids LFTs are within normal limits She is afebrile with a normal white blood cell count We will DC with recommended outpatient follow-up
[2019-09-29] MEDS ORDERED: ONDANSETRON 4 MG/2 ML VIAL ONE (03:10)
--- NOTE | 2019-09-29 03:22 | PDOC ---
History of Present Illness - General Chief Complaint: Pain Stated Complaint: APPENDIX Time Seen by Provider: 09/29/19 03:03 - History of Present Illness Initial Comments: Lakshmi Armstrong is a 34yo woman with a PMH of asthma, provoked DVT (no longer on treatment), s/p gastric sleeve who presents with right-sided abdominal pain. She says that the pain has been present for 2-3 days, and she also reports multiple episodes of vomiting throughout the day. The vomiting is non bloody and looks like whatever she ate. She denies any diarrhea or constipation. She has never had similar abdominal pain in the past. She denies fever/chills, vaginal discharge, vaginal bleeding, dysuria, recent travel, unusual foods, or other recent symptoms. Past History - Past Medical History Allergies/Adverse Reactions: Allergies Allergy/AdvReac Type Severity Reaction Status Date / Time No Known Allergies Allergy Verified 09/29/19 02:51 Home Medications: Ambulatory Orders Cefdinir [Omnicef -] 300 mg PO BID #14 capsule 08/19/19 predniSONE [Deltasone -] 60 mg PO UTDICT #15 tablet 08/19/19 Albuterol Sulfate Inhaler - [Ventolin HFA Inhaler -] 1 - 2 inh PO Q4H PRN #1 inhaler 09/17/19 Fluticasone/Salmeterol [Advair 250-50 Diskus] 1 each IH DAILY #1 blst.w.dev 11/05 Asthma: Yes COPD: No - Surgical History GI Surgery: Yes (sleeve) - Reproductive History Therapeutic (s) & number: No - Immunization History Immunization Up to Date: Yes - Psycho Social/Smoking Cessation Hx Smoking History: Never smoked Have you smoked in the past 12 months: No Hx Alcohol Use: No Drug/Substance Use Hx: No Review of Systems - Review of Systems Comments:: General: No fevers, no chills, no weight or appetite change, no malaise HEENT: No changes in vision, no changes in hearing, no congestion, no sore throat CV: No chest pain, no palpitations, no LE edema Pulm: No SOB, no cough, no wheezing GI: + vomiting, +RLQ pain, no change in bowel habits, no melena : No frequency, no urgency, no dysuria Musc: No back pain, no joint swelling, no recent injury Skin: No rash, no lesions, no erythema Endo: No excessive thirst, no heat/cold intolerance Heme: No unusual bruising or bleeding, no swollen glands Neuro: No syncope, no numbness/tingling, no focal weakness Vasc: No claudication Psych: No recent change in mood, no SI or HI *Physical Exam - Vital Signs Last Vital Signs Temp Pulse Resp BP Pulse Ox 98.1 F 68 20 100/66 100 09/29/19 01:15 09/29/19 01:15 09/29/19 01:15 09/29/19 01:15 09/29/19 01:15 - Physical Exam General: Comfortable, no acute distress HEENT: PERRL, EOMI, MMM, voice normal, normal neck ROM Cards: RRR, no murmur appreciated Pulm: Comfortable on room air, clear to auscultation bilaterally Abd: Soft, nondistended. Moderately TTP in right abdomen. No rigidity or guarding : No CVA tenderness Ext: Atraumatic. No LE edema. ROM intact. WWP Skin: Normal color, no rashes or lesions Neuro: A&Ox3, CN grossly intact, normal speech, motor/sensory grossly intact and symmetric Psych: Mood appropriate to situation ED Treatment Course - LABORATORY CBC & Chemistry Diagram: 09/29/19 03:00 09/29/19 03:00 - Medications Given in the ED: ED Medications Discontinued Medications Generic Name Dose Route Start Last Admin Trade Name Freq PRN Reason Stop Dose Admin Ondansetron HCl 4 mg 09/29/19 02:41 09/29/19 03:16 Zofran Injection IVPUSH 09/29/19 02:42 4 mg ONCE ONE Administration Sodium Chloride 1,000 ml 09/29/19 02:41 09/29/19 03:16 Normal Saline - IV 09/29/19 02:42 1,000 ml ONCE ONE Administration Medical Decision Making - Medical Decision Making 09/29/19 03:22 Lakshmi Armstrong is a 34yo woman with a PMH of asthma, provoked DVT (no longer on treatment), s/p gastric sleeve who presents with right-sided abdominal pain and NBNB vomiting for 2-3 days. - Ddx includes appendicitis, ovarian cyst, ovarian torsion, less likely , less likely gastroenteritis given no diarrhea - CBC, CMP, UA, UCx, urine preg, lactate, coags - IVF - CT abd/pelvis 09/29/19 05:02 - Labs reviewed. Notable for lactate 2.4, likely secondary to mild dehydration - CT to be completed 09/29/19 06:48 - CT completed. Notes uterine fibroids, possible left ovarian cyst. 7mm lung nodule also noted. Normal appendix, gallbladder, bowel - Updated pt. Still reporting some abdominal pain, will give toradol - Plan to discharge home with PMD follow up Discussed with Dr Renita Mancuso PGY2 Discharge - Discharge Information Problems reviewed: Yes Clinical Impression/Diagnosis: Generalized abdominal pain Vomiting Qualifiers: Vomiting type: unspecified Vomiting Intractability: non-intractable Nausea presence: with nausea Qualified Code(s): R11.2 - Nausea with vomiting, unspecified Condition: Fair Disposition: HOME - Admission No - Follow up/Referral Referrals: [facility] [place] [facility] [place] [Provider Group] - Patient Discharge Instructions Patient Printed Discharge Instructions: DI for Abdominal Pain-Adult, DI for Vomiting -- Adult Additional Instructions: Discharge Instructions: You were seen in the emergency department for vomiting and abdominal pain. Your blood tests and CT scan did not show any concerning findings. You were noted to have a 7mm nodule in your right lung and a 4mm nodule in your left lung; these should be followed with your regular doctor. Stick to liquids at home for the next several days until your symptoms resolve. Avoid dairy products, caffeine, or anything that irritates your stomach. Take 650-1000mg acetaminophen as needed for pain. Seek immediate care for worsening symptoms, inability to eat/drink, dehydration , fever to 101F, or if you have any other medical emergency. - Post Discharge Activity
[2019-09-29 03:28] LABS: BASO % 0.9 % (0-2.0); EOS % 1.8 % (0-4.5); HEMOGLOBIN 9.8 GM/dL (10.7-15.3); LYMPH % 39.5 % (8-40); MCH 20.1 pg (25.7-33.7); MCHC 30.5 g/dl (32.0-36.0); MEAN CELL VOLUME 65.9 fl (80-96); MEAN PLT VOLUME 10.1 fl (7.5-11.1); MONO % 7.1 % (3.8-10.2); NEUT % 50.7 % (42.8-82.8); PLATELET COUNT 313 K/MM3 (134-434); RBC 4.86 M/mm3 (3.60-5.2); RDW 16.6 % (11.6-15.6); WHITE BLOOD COUNT 9.7 K/mm3 (4.0-10.0)
[2019-09-29 03:29] LABS: PH,URINE 5.5 (5.0-8.0); URINE APPEARANCE CLEAR; URINE BILIRUBIN NEGATIVE (NEGATIVE); URINE COLOR YELLOW; URINE GLUCOSE (UA) NEGATIVE (NEGATIVE); URINE KETONE NEGATIVE (NEGATIVE); URINE LEUK ESTERASE NEGATIVE (NEGATIVE); URINE NITRITE NEGATIVE (NEGATIVE); URINE PROTEIN NEGATIVE (NEGATIVE)
[2019-09-29 03:50] LABS: ALBUMIN 4.3 g/dl (3.4-5.0); BILIRUBIN,TOTAL 0.3 mg/dL (0.2-1); BLOOD UREA NITROGEN 12.2 mg/dL (7-18); CALCIUM 9.1 mg/dL (8.5-10.1); CREATININE 0.6 mg/dL (0.55-1.3)
[2019-09-29 05:41] LABS: INR 1.18 (0.83-1.09)
[2019-09-29 06:20] LABS: ANISOCYTOSIS 3+; HELMET CELLS 1+; MACROCYTOSIS 0; PLATELET ESTIMATE NORMAL
[2019-09-29] MEDS ORDERED: KETOROLAC TROMETHAMINE 30 MG/1 ML VIAL IVPUSH ONE (06:53)
[2019-09-29] MEDS ORDERED: KETOROLAC TROMETHAMINE 30 MG/1 ML VIAL ONE (07:12)
[2019-09-29 07:55] VITALS: BP 115/78; PULSE 57; TEMP 98.4
--- NOTE | 2019-09-29 12:36 | EKG ---
Test Reason : Blood Pressure : / mmHG Vent. Rate : 063 BPM Atrial Rate : 063 BPM P-R Int : 130 ms QRS Dur : 088 ms QT Int : 412 ms P-R-T Axes : 054 068 029 degrees QTc Int : 421 ms NORMAL SINUS RHYTHM NORMAL ECG Confirmed by MD FREDERICK GREGORY ([id number]) on 09/29/2019 12:35:28 PM Referred By: Confirmed By:JIMENEZ FREDERICK MD
== END 2019-09-29 07:35 | disposition home or self-care (01) ==
LOC: JER 01:15
PROC: 3E0333Z Introduction of Anti-inflammatory into Peripheral Vein, Percutaneous Approach (ICD-10-PCS; principal; 2019-09-29)
DX: R10.84 Generalized abdominal pain (principal); R11.2 Nausea with vomiting, unspecified; J45.909 Unspecified asthma, uncomplicated
CPT/HCPCS: 36415; 74177-TC; 80053; 81003; 83605; 83690; 84703; 85025; 85610; 85730; 93005; 93010; 96374; 99282-25

== ENCOUNTER 2019-10-21 04:56 | Emergency (ER) | payer OTHER ==
--- NOTE | 2019-10-21 05:50 | PDOC ---
Attending Attestation - Resident Resident Name: AjharveySamir - ED Attending Attestation I have performed the following: I have examined & evaluated the patient, The case was reviewed & discussed with the resident, I agree w/resident's findings & plan - HPI HPI: 10/21/19 06:45 see resident hpi - Physicial Exam PE: 10/21/19 06:45 see resident exam - Medical Decision Making 10/21/19 06:45 34-year-old female with persistent abdominal pain Patient has had multiple CTs in the past Recent results show possible pericholecystic fluid, uterine fibroids Pelvic exam unremarkable We will sign out right upper quadrant ultrasound and pelvic ultrasound to dayshift
[2019-10-21 06:06] VITALS: TEMP 98.1; BMI 22.6
--- NOTE | 2019-10-21 06:22 | PDOC ---
History of Present Illness - General Chief Complaint: Pain Stated Complaint: ABD PAIN Time Seen by Provider: 10/21/19 05:42 History Source: Patient Exam Limitations: No Limitations - History of Present Illness Initial Comments: 10/21/19 06:22 34 yo female pmh asthma, provoked DVT (no longer on treatment), s/p gastric sleeve presents to the ED for 1 month of abdominal pain. Pt seen multiple times in the ED for abdominal pain with ab/pel CT showing multiple fibroids and thickened GB wall (No US done). Pt went to [facility], told again she has fibroids and f/u appointment is within the next 2 weeks. Pt admits to fevers over the last few days, taken Motrin with relief. Admits to persistent N/V since the gastric sleeve. Pain is suprapubic today, sharp and non radiating, denies back pain, changes in bowel or bladder habits, no hx STI, 1 partner, no vaginal discharge. Past History - Past Medical History Allergies/Adverse Reactions: Allergies Allergy/AdvReac Type Severity Reaction Status Date / Time No Known Allergies Allergy Verified 10/21/19 06:06 Asthma: Yes COPD: No - Surgical History GI Surgery: Yes (sleeve) - Reproductive History Therapeutic (s) & number: No - Immunization History Immunization Up to Date: Yes - Psycho Social/Smoking Cessation Hx Smoking History: Never smoked Have you smoked in the past 12 months: No Hx Alcohol Use: No Drug/Substance Use Hx: No Review of Systems - Review of Systems Constitutional: Yes: See HPI HEENTM: Yes: See HPI Respiratory: Yes: See HPI Cardiac (ROS): Yes: See HPI ABD/GI: Yes: See HPI : Yes: See HPI Musculoskeletal: Yes: See HPI Integumentary: Yes: See HPI *Physical Exam - Vital Signs Last Vital Signs Temp Pulse Resp BP Pulse Ox 98.1 F 94 H 20 100/66 99 10/21/19 05:00 10/21/19 05:00 10/21/19 05:00 10/21/19 05:00 10/21/19 05:00 - Physical Exam General Appearance: Yes: Nourished, Appropriately Dressed. No: Apparent Distress HEENT: positive: EOMI Neck: positive: Supple. negative: Carotid bruit Respiratory/Chest: positive: Lungs Clear, Normal Breath Sounds. negative: Respiratory Distress, Accessory Muscle Use, Crackles, Rales, Rhonchi, Stridor, Wheezing Cardiovascular: positive: Regular Rhythm, Regular Rate, S1, S2. negative: Edema , JVD, Murmur Vascular Pulses: Dorsalis-Pedis (R): 4+, Doralis-Pedis (L): 4+ Female Pelvic Exam: positive: normal external exam, normal size ovaries. negative: CMT Gastrointestinal/Abdominal: positive: Flat, Soft, Tenderness (diffuse, mostly suprapubic). negative: Pulsatile Mass, Protuberent, Distended, Guarding, Rebound Musculoskeletal: negative: CVA Tenderness Extremity: positive: Normal Capillary Refill, Normal Inspection, Normal Range of Motion Integumentary: positive: Normal Color, Dry, Warm Neurologic: positive: Fully Oriented, Alert, Normal Mood/Affect, Normal Response Medical Decision Making - Medical Decision Making 10/21/19 06:28 34 yo female pmh asthma, provoked DVT (no longer on treatment), s/p gastric sleeve presents to the ED for 1 month of abdominal pain. Pt seen multiple times in the ED for abdominal pain with ab/pel CT showing multiple fibroids and thickened GB wall (No US done). Pt went to [facility], told again she has fibroids and f/u appointment is within the next 2 weeks. Pt admits to fevers over the last few days, taken Motrin with relief. Admits to persistent N/V since the gastric sleeve. Pain is suprapubic today, sharp and non radiating, denies back pain, changes in bowel or bladder habits, no hx STI, 1 partner, no vaginal discharge. Vitals WNL Pt had multiple CT done, will do RUQ US due to thickened GB wall and pelvic US due to complaints of severe suprapubic pain with lumps Pelvic shows no CMT or adnexal tenderness, no ulcerations. Scant bloody DC, pt currently on menstrual cycle Pending labs and US Gave tylenol for pain S/O to day team Discharge - Discharge Information Problems reviewed: Yes Clinical Impression/Diagnosis: Abdominal pain Condition: Fair - Follow up/Referral - Patient Discharge Instructions - Post Discharge Activity
[2019-10-21] MEDS ORDERED: ACETAMINOPHEN 500 MG TABLET (FP) PO ONE (06:28)
[2019-10-21] MEDS ORDERED: ACETAMINOPHEN 325 MG TABLET (FP) ONE (06:31)
[2019-10-21 06:48] LABS: BASO % 0.7 % (0-2.0); EOS % 1.7 % (0-4.5); HEMATOCRIT 29.3 % (32.4-45.2); HEMOGLOBIN 9.4 GM/dL (10.7-15.3); LYMPH % 32.4 % (8-40); MCH 20.6 pg (25.7-33.7); MCHC 31.9 g/dl (32.0-36.0); MEAN CELL VOLUME 64.3 fl (80-96); MEAN PLT VOLUME 9.4 fl (7.5-11.1); MONO % 5.7 % (3.8-10.2); NEUT % 59.5 % (42.8-82.8); PLATELET COUNT 307 K/MM3 (134-434); RBC 4.55 M/mm3 (3.60-5.2); RDW 17.1 % (11.6-15.6); WHITE BLOOD COUNT 8.4 K/mm3 (4.0-10.0)
[2019-10-21 07:05] LABS: EPI CELLS 5.9 /HPF (0-5/HPF); HYALINE CASTS 10 /lpf (0-8); URINE APPEARANCE CLEAR; URINE BACTERIA 91.5 /hpf (NEGATIVE); URINE BILIRUBIN NEGATIVE (NEGATIVE); URINE COLOR YELLOW; URINE GLUCOSE (UA) NEGATIVE (NEGATIVE); URINE KETONE NEGATIVE (NEGATIVE); URINE LEUK ESTERASE NEGATIVE (NEGATIVE); URINE NITRITE NEGATIVE (NEGATIVE); URINE PROTEIN NEGATIVE (NEGATIVE); URINE RBC 7 /hpf (0-4); URINE WBC 3 /hpf (0-5)
[2019-10-21 07:14] LABS: ALBUMIN 4.2 g/dl (3.4-5.0); BILIRUBIN,TOTAL 0.5 mg/dL (0.2-1); BLOOD UREA NITROGEN 9.9 mg/dL (7-18); CALCIUM 9.1 mg/dL (8.5-10.1); CREATININE 0.7 mg/dL (0.55-1.3); POTASSIUM 3.8 mmol/L (3.5-5.1); TOT PROT 7.7 g/dl (6.4-8.2)
[2019-10-21 10:56] LABS: ANISOCYTOSIS 3+; MACROCYTOSIS 0; PLATELET ESTIMATE NORMAL
--- NOTE | 2019-10-21 11:36 | EKG ---
Test Reason : Blood Pressure : / mmHG Vent. Rate : 058 BPM Atrial Rate : 058 BPM P-R Int : 134 ms QRS Dur : 082 ms QT Int : 442 ms P-R-T Axes : 054 071 046 degrees QTc Int : 433 ms SINUS BRADYCARDIA OTHERWISE NORMAL ECG WHEN COMPARED WITH ECG OF 29-SEP-2019 03:47, NO SIGNIFICANT CHANGE WAS FOUND Confirmed by Earle Ledbetter MD ([id number]) on 10/21/2019 11:35:56 AM Referred By: Confirmed By:Earle Ledbetter MD
--- NOTE | 2019-10-21 12:52 | PDOC ---
*Physical Exam - Vital Signs Last Vital Signs Temp Pulse Resp BP Pulse Ox 98.1 F 94 H 20 100/66 99 10/21/19 05:00 10/21/19 05:00 10/21/19 05:00 10/21/19 05:00 10/21/19 05:00 - Physical Exam 10/21/19 12:49 Patient endorsed to me by Dr. luque. Patient is a 34-year-old female with history of fibroid uterus who presented with lower abdominal pain. Patient is afebrile and nontoxic-appearing. Vital signs are noted. CBC reveals mild anemia. Right upper quadrant and pelvic ultrasounds revealed fibroid uterus but no evidence of acute cholecystitis or TOA or ovarian torsion. Patient is made aware of the findings and will be discharged with [employer] follow-up. ED Treatment Course - LABORATORY CBC & Chemistry Diagram: 10/21/19 06:00 10/21/19 06:00 - ADDITIONAL ORDERS Additional order review: Laboratory Results 10/21/19 10/21/19 10/21/19 06:35 06:35 06:00 Sodium Potassium Chloride Carbon Dioxide Anion Gap BUN Creatinine Est GFR (CKD-EPI)AfAm Est GFR (CKD-EPI)NonAf Random Glucose Lactic Acid 0.7 Calcium Total Bilirubin AST ALT Alkaline Phosphatase Total Protein Albumin Lipase Urine Color Yellow Urine Appearance Clear Urine pH 5.0 Ur Specific [place] 1.038 H Urine Protein Negative Urine Glucose (UA) Negative Urine Ketones Negative Urine Blood 2+ H Urine Nitrite Negative Urine Bilirubin Negative Urine Urobilinogen 1.0 Ur Leukocyte Esterase Negative Urine WBC (Auto) 3 Urine RBC (Auto) 7 Urine Casts (Auto) 10 U Epithel Cells (Auto) 5.9 Urine Bacteria (Auto) 91.5 Urine HCG, Qual Negative 10/21/19 06:00 Sodium 139 Potassium 3.8 Chloride 104 Carbon Dioxide 27 Anion Gap 7 L BUN 9.9 Creatinine 0.7 Est GFR (CKD-EPI)AfAm 131.02 Est GFR (CKD-EPI)NonAf 113.04 Random Glucose 97 Lactic Acid Calcium 9.1 Total Bilirubin 0.5 AST 13 L ALT 15 Alkaline Phosphatase 83 Total Protein 7.7 Albumin 4.2 Lipase 179 Urine Color Urine Appearance Urine pH Ur Specific [place] Urine Protein Urine Glucose (UA) Urine Ketones Urine Blood Urine Nitrite Urine Bilirubin Urine Urobilinogen Ur Leukocyte Esterase Urine WBC (Auto) Urine RBC (Auto) Urine Casts (Auto) U Epithel Cells (Auto) Urine Bacteria (Auto) Urine HCG, Qual 10/21/19 06:00 RBC 4.55 MCV 64.3 L MCHC 31.9 L RDW 17.1 H MPV 9.4 Neutrophils % 59.5 Lymphocytes % 32.4 Monocytes % 5.7 Eosinophils % 1.7 Basophils % 0.7 - Medications Given in the ED: ED Medications Discontinued Medications Generic Name Dose Route Start Last Admin Trade Name Renzo PRN Reason Stop Dose Admin Acetaminophen 1,000 mg 10/21/19 06:28 10/21/19 06:43 Tylenol - PO 10/21/19 06:29 1,000 mg ONCE ONE Administration Discharge - Discharge Information Problems reviewed: Yes Clinical Impression/Diagnosis: Abdominal pain Qualifiers: Abdominal location: lower abdomen, unspecified Qualified Code(s): R10.30 - Lower abdominal pain, unspecified Fibroid uterus Qualifiers: Uterine leiomyoma location: unspecified location Qualified Code(s): D25.9 - Leiomyoma of uterus, unspecified Condition: Stable Disposition: HOME - Follow up/Referral Referrals: Luciano Lainez MD [Staff Physician] - - Patient Discharge Instructions Patient Printed Discharge Instructions: DI for Abdominal Pain-Adult, DI for Uterine Fibroids - Post Discharge Activity
[2019-10-21 13:09] VITALS: BP 111/68; PULSE 70
== END 2019-10-21 13:30 | disposition home or self-care (01) ==
LOC: JER 04:56
DX: R10.9 Unspecified abdominal pain (principal); Z86.718 Personal history of other venous thrombosis and embolism; J45.909 Unspecified asthma, uncomplicated; Z98.84 Bariatric surgery status
CPT/HCPCS: 36415; 76705-TC; 76856-TC; 80053; 81003; 83605; 83690; 84703; 85025; 93005; 93010; 99283-25

== ENCOUNTER 2020-04-04 11:25 | Emergency (ER) | payer OTHER ==
[2020-04-04 11:39] VITALS: BP 111/81; PULSE 75; TEMP 98.4; BMI 20.7
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
[2020-04-04] MEDS ORDERED: CYCLOBENZAPRINE HCL 10 MG TABLET (FP) PO ONE (12:39)
[2020-04-04] MEDS ORDERED: KETOROLAC TROMETHAMINE 60 MG/2 ML VIAL IM ONE (12:39)
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
[2020-04-04] MEDS ORDERED: CYCLOBENZAPRINE HCL 10 MG TABLET (FP) ONE (12:49)
[2020-04-04] MEDS ORDERED: KETOROLAC TROMETHAMINE 60 MG/2 ML VIAL ONE (12:49)
== END 2020-04-04 14:18 | disposition home or self-care (01) ==
LOC: JERFT 11:25
PROC: 3E0233Z Introduction of Anti-inflammatory into Muscle, Percutaneous Approach (ICD-10-PCS; principal; 2020-04-04)
DX: M54.2 Cervicalgia (principal); M54.9 Dorsalgia, unspecified; V89.2XXA Person injured in unspecified motor-vehicle accident, traffic, initial encounter
CPT/HCPCS: 70450-TC; 99284-25

== ENCOUNTER 2020-04-17 09:39 | Emergency (ER) | payer OTHER ==
[2020-04-17 09:45] VITALS: BMI 24.8
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
[2020-04-17] MEDS ORDERED: METOCLOPRAMIDE HCL INJECTION 10 MG/2 ML VIAL IVPB ONE (11:25)
[2020-04-17] MEDS ORDERED: ACETAMINOPHEN 1000 MG/100 ML VIAL (NON FORMULARY) IVPB ONE (11:25)
[2020-04-17] MEDS ORDERED: METOCLOPRAMIDE HCL INJECTION 10 MG/2 ML VIAL ONE (11:32)
[2020-04-17] MEDS ORDERED: ACETAMINOPHEN INJECTION 100 ML IVPB ONE (11:33)
[2020-04-17 12:07] LABS: BASO % 0.4 % (0-2.0); EOS % 2.4 % (0-4.5); HEMATOCRIT 36.7 % (32.4-45.2); HEMOGLOBIN 12.2 GM/dL (10.7-15.3); LYMPH % 33.8 % (8-40); MCH 27.9 pg (25.7-33.7); MCHC 33.1 g/dl (32.0-36.0); MEAN CELL VOLUME 84.2 fl (80-96); MEAN PLT VOLUME 9.8 fl (7.5-11.1); MONO % 7.6 % (3.8-10.2); NEUT % 55.8 % (42.8-82.8); PLATELET COUNT 178 K/MM3 (134-434); RBC 4.36 M/mm3 (3.60-5.2); WHITE BLOOD COUNT 8.2 K/mm3 (4.0-10.0)
[2020-04-17 12:13] LABS: INR 1.2 (0.83-1.09); PROTHROMBIN TIME (PATIENT) 14.2 SEC (9.7-13.0)
[2020-04-17 12:31] LABS: ALBUMIN 3.6 g/dl (3.4-5.0); ALK PHOS 80 U/L (45-117); ANION GAP 2 MMOL/L (8-16); BILIRUBIN,TOTAL 0.4 mg/dL (0.2-1); BLOOD UREA NITROGEN 7.3 mg/dL (7-18); CALCIUM 8.7 mg/dL (8.5-10.1); CHLORIDE 110 mmol/L (98-107); CO2 28 mmol/L (21-32); CREATININE 0.6 mg/dL (0.55-1.3); GLUCOSE,RANDOM 80 mg/dL (74-106); MAGNESIUM 2.3 mg/dL (1.8-2.4); POTASSIUM 3.9 mmol/L (3.5-5.1); SGOT/AST 10 U/L (15-37); SGPT/ALT 17 U/L (13-61); SODIUM 140 mmol/L (136-145); TOT PROT 6.6 g/dl (6.4-8.2)
[2020-04-17] MEDS ORDERED: KETOROLAC TROMETHAMINE 30 MG/1 ML VIAL IVPUSH ONE ×3 (12:43→13:38)
[2020-04-17] MEDS ORDERED: KETOROLAC TROMETHAMINE 30 MG/1 ML VIAL ONE (12:48)
[2020-04-17] MEDS ORDERED: CLINDAMYCIN HCL 150 MG CAPSULE (FP) PO ONE (13:38)
[2020-04-17] MEDS ORDERED: DIPHTH,PERTUSS(ACELL),TET 0.5 ML DISP.SYRIN IM ONE ×2 (13:41→13:47)
[2020-04-17 13:45] VITALS: BP 102/78; PULSE 62; TEMP 97.8
[2020-04-17] MEDS ORDERED: CLINDAMYCIN HCL 150 MG CAPSULE (FP) ONE (13:47)
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
--- NOTE | 2020-04-18 10:00 | EKG ---
Test Reason : Blood Pressure : / mmHG Vent. Rate : 072 BPM Atrial Rate : 072 BPM P-R Int : 138 ms QRS Dur : 098 ms QT Int : 404 ms P-R-T Axes : 062 075 021 degrees QTc Int : 442 ms NORMAL SINUS RHYTHM INCOMPLETE RIGHT BUNDLE BRANCH BLOCK BORDERLINE ECG WHEN COMPARED WITH ECG OF 21-OCT-2019 07:27, T WAVE INVERSION NOW EVIDENT IN ANTERIOR LEADS Confirmed by Brandy Lucas ([id number]) on 04/18/2020 9:59:36 AM Referred By: Confirmed By:Brandy Lucas
== END 2020-04-17 14:13 | disposition home or self-care (01) ==
LOC: JER 09:39
PROC: 3E0333Z Introduction of Anti-inflammatory into Peripheral Vein, Percutaneous Approach (ICD-10-PCS; principal; 2020-04-17)
PROC: 3E033GC Introduction of Other Therapeutic Substance into Peripheral Vein, Percutaneous Approach (ICD-10-PCS; 2020-04-17)
PROC: 3E0234Z Introduction of Serum, Toxoid and Vaccine into Muscle, Percutaneous Approach (ICD-10-PCS; 2020-04-17)
DX: R51 Headache (principal); R11.2 Nausea with vomiting, unspecified
CPT/HCPCS: 36415; 70450-TC; 70486-TC; 72125-TC; 80053; 82550; 83735; 84484; 84703; 85025; 85610; 85730; 90715; 93005; 93010; 99285-25; J0131

== ENCOUNTER 2020-04-20 06:30 | Emergency (ER) | payer OTHER ==
[2020-04-20 07:04] VITALS: BP 123/89; PULSE 70; TEMP 98.2; BMI 23.0
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
== END 2020-04-20 09:17 | disposition home or self-care (01) ==
LOC: JER 06:30
DX: H60.02 Abscess of left external ear (principal)
CPT/HCPCS: 99282-25

== ENCOUNTER 2020-06-11 06:22 | Emergency (ER) | payer OTHER ==
--- OUTSIDE RECORDS SUMMARY | 2020-06-11 06:45 | XMS ---
:1985 Author Organization [facility] Support Name Relationship Address Phone SE, SELF-EMPLOYED Unavailable Unavailable Unavailable DOC Unavailable Unavailable Unavailable SE Unavailable Unavailable Unavailable SANIA [employer]UR[employer]NER [id number] [place] [address] Re-disclosure Warning The records that you are about to access may contain information from federally- assisted alcohol or drug abuse programs. If such information is present, then the following federally mandated warning applies: This information has been disclosed to you from records protected by federal confidentiality rules (42 CFR part 2). The federal rules prohibit you from making any further disclosure of this information unless further disclosure is expressly permitted by the written consent of the person to whom it pertains or as otherwise permitted by 42 CFR part 2. A general authorization for the release of medical or other information is NOT sufficient for this purpose. The Federal rules restrict any use of the information to criminally investigate or prosecute any alcohol or drug abuse patient.The records that you are about to access may contain highly sensitive health information, the redisclosure of which is protected by Article 27-F of the [facility] Public Health law. If you continue you may haveaccess to information: Regarding HIV / AIDS; Provided by facilities licensed or operated by the [facility] Office of Mental Health; or Provided by the [facility] Office for People With Developmental Disabilities. If such information is present, then the following [facility] mandated warning applies: This information has been disclosed to you from confidential records which are protected by state law. State law prohibits you from making any further disclosure of this information without the specific written consent of the person to whom it pertains, or as otherwise permitted by law. Any unauthorized further disclosure in violation of state law may result in a fine or nursing home sentence or both. A general authorization for the release of medical or other information is NOT sufficient authorization for further disclosure. Insurance Providers Payer name Policy type Policy ID Covered Covered constitution party's Policy P maicol / Coverage constitution party ID relationship to [employer] Inf ormation type blackman [facility] [id number] SP [id number] NON CAP PROGRESSIVE [id number] SP [id number] SELF PAY INSURANCE PENDING WC/NF [id number] SP [id number] ONLY [employer] OF [id number] SP [id number] [place]. MEDICAID [id number] SP [id number]
[2020-06-11 06:57] VITALS: BMI 21.4
[2020-06-11] MEDS ORDERED: SODIUM CHLORIDE 1,000 ML IV STA (07:03)
[2020-06-11 07:45] LABS: BASO % 0.6 % (0-2.0); EOS % 3.1 % (0-4.5); HEMATOCRIT 37.9 % (32.4-45.2); HEMOGLOBIN 12.8 GM/dL (10.7-15.3); LYMPH % 35.7 % (8-40); MCH 28.9 pg (25.7-33.7); MCHC 33.9 g/dl (32.0-36.0); MEAN CELL VOLUME 85.4 fl (80-96); MONO % 5.5 % (3.8-10.2); NEUT % 55.1 % (42.8-82.8); PLATELET COUNT 185 K/MM3 (134-434); RBC 4.44 M/mm3 (3.60-5.2); RDW 13.8 % (11.6-15.6); WHITE BLOOD COUNT 10.8 K/mm3 (4.0-10.0)
[2020-06-11] MEDS ORDERED: METOCLOPRAMIDE HCL INJECTION 10 MG/2 ML VIAL IVPB ONE (08:05)
[2020-06-11] MEDS ORDERED: ACETAMINOPHEN 1000 MG/100 ML VIAL (NON FORMULARY) IVPB ONE (08:05)
[2020-06-11 08:06] LABS: BILIRUBIN,TOTAL 0.4 mg/dL (0.2-1); BLOOD UREA NITROGEN 11.8 mg/dL (7-18); CALCIUM 9.1 mg/dL (8.5-10.1); CREATININE 0.5 mg/dL (0.55-1.3); POTASSIUM 4.1 mmol/L (3.5-5.1); TOT PROT 7.1 g/dl (6.4-8.2)
[2020-06-11] MEDS ORDERED: ACETAMINOPHEN INJECTION 100 ML IVPB ONE (08:07)
[2020-06-11] MEDS ORDERED: METOCLOPRAMIDE HCL INJECTION 10 MG/2 ML VIAL ONE (08:07)
--- NOTE | 2020-06-11 08:26 | PDOC ---
History of Present Illness - General Chief Complaint: Lightheaded Stated Complaint: DIZZINESS,NAUSEA Time Seen by Provider: 06/11/20 06:54 History Source: Patient - History of Present Illness Initial Comments: 06/11/20 08:27 34F w/no PMH p/w one day of dizziness. Past History - Medical History Allergies/Adverse Reactions: Allergies Allergy/AdvReac Type Severity Reaction Status Date / Time No Known Allergies Allergy Verified 06/11/20 06:53 Home Medications: Ambulatory Orders Ibuprofen [Motrin -] 800 mg PO QID 04/17/20 Naproxen 250 mg PO BID PRN #30 tablet 04/17/20 Asthma: Yes COPD: No - Surgical History GI Surgery: Yes (sleeve) - Reproductive History Is Patient Now?: No Therapeutic (s) & number: No - Immunization History Immunization Up to Date: Yes - Psycho-Social/Smoking History Smoking History: Never smoked Have you smoked in the past 12 months: No Information on smoking cessation initiated: No - Substance Abuse Hx (Audit-C & DAST Scrn) How often the patient has a drink containing alcohol: Never Score: In Men: 4 or > Positive; In Women: 3 or > Positive: 0 Screen Result (Pos requires Nsg. Audit-10AR): Negative In the last yr the pt used illegal drug/Rx for NonMed reason: No Score: Yes response is considered Positive: 0 Screen Result (Positive result requires Nsg. DAST-10): Negative *Physical Exam - Vital Signs Last Vital Signs Temp Pulse Resp BP Pulse Ox 97.7 F 67 18 112/80 100 06/11/20 06:54 06/11/20 06:54 06/11/20 06:54 06/11/20 06:54 06/11/20 06:54 ED Treatment Course - LABORATORY CBC & Chemistry Diagram: 06/11/20 07:19 06/11/20 07:19 - ADDITIONAL ORDERS Additional order review: Laboratory Results 06/11/20 06/11/20 06/11/20 07:56 07:19 07:19 Sodium 139 Potassium 4.1 Chloride 106 Carbon Dioxide 29 Anion Gap 5 L BUN 11.8 Creatinine 0.5 L Est GFR (CKD-EPI)AfAm 146.35 Est GFR (CKD-EPI)NonAf 126.27 POC Glucometer 77 Random Glucose 88 Calcium 9.1 Total Bilirubin 0.4 AST 14 L ALT 21 Alkaline Phosphatase 71 Total Protein 7.1 Albumin 4.0 Alcohol, Quantitative < 3 06/11/20 06/11/20 07:56 07:19 RBC 4.44 MCV 85.4 MCHC 33.9 RDW 13.8 MPV 11.0 D Neutrophils % 55.1 Lymphocytes % 35.7 Monocytes % 5.5 Eosinophils % 3.1 Basophils % 0.6 POC Glucometer 77 - RADIOLOGY Radiology Studies Ordered: Category Date Time Status HEAD CT WITHOUT CONTRAST [CT] Stat CT Scan 06/11/20 08:06 Ordered - Medications Given in the ED: ED Medications Discontinued Medications Generic Name Dose Route Start Last Admin Trade Name Freq PRN Reason Stop Dose Admin Sodium Chloride 1,000 mls @ 1,000 mls/hr 06/11/20 07:03 06/11/20 07:22 Normal Saline - IV 06/11/20 08:02 1,000 mls/hr ASDIR STA Administration Discharge - Discharge Information Problems reviewed: Yes Clinical Impression/Diagnosis: Headache Qualifiers: Headache type: unspecified Headache chronicity pattern: chronic headache Intractability: not intractable Qualified Code(s): R51 - Headache Condition: Stable Disposition: HOME - Admission No - Follow up/Referral - Patient Discharge Instructions Patient Printed Discharge Instructions: Migraine -- Adult Additional Instructions: You were seen in the ER for headache. Your symptoms improved with medication. Your bloodwork and urine tests were normal. Follow up with neurology as soon as possible, in the next 2-3 days. Return to the ER if you are unable to walk, have worsening headache, high fevers, or intractable vomiting. - Post Discharge Activity
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
[2020-06-11 10:48] LABS: URINE APPEARANCE CLEAR; URINE BILIRUBIN NEGATIVE (NEGATIVE); URINE COLOR YELLOW; URINE GLUCOSE (UA) NEGATIVE (NEGATIVE); URINE KETONE NEGATIVE (NEGATIVE); URINE LEUK ESTERASE NEGATIVE (NEGATIVE); URINE NITRITE NEGATIVE (NEGATIVE); URINE PROTEIN NEGATIVE (NEGATIVE)
[2020-06-11 10:50] LABS: HCG,QUALITATIVE URINE Negative
[2020-06-11 11:07] VITALS: BP 103/57; PULSE 89; TEMP 98
[2020-06-11 11:27] LABS: COCAINE, UR NEGATIVE ng/ml (CUTOFF=300); OPIATES, URI NEGATIVE ng/ml (CUTOFF=300); PHENCYCLIDINE,URINE NEGATIVE ng/ml (CUTOFF=25); URINE BARBITURATES NEGATIVE ng/ml (CUTOFF=200)
[2020-06-11 11:28] LABS: METHADONE, UR NEGATIVE ng/ml (CUTOFF=300); URINE AMPHETAMINES NEGATIVE ng/ml (CUTOFF=500); URINE BENZODIAZEPINES NEGATIVE ng/ml (CUTOFF=200)
--- NOTE | 2020-06-11 16:09 | EKG ---
Test Reason : Blood Pressure : / mmHG Vent. Rate : 058 BPM Atrial Rate : 058 BPM P-R Int : 108 ms QRS Dur : 074 ms QT Int : 442 ms P-R-T Axes : 043 076 066 degrees QTc Int : 433 ms SINUS BRADYCARDIA WITH SHORT ID NONSPECIFIC ST AND T WAVE ABNORMALITY ABNORMAL ECG WHEN COMPARED WITH ECG OF 17-APR-2020 10:01, ID INTERVAL HAS DECREASED NONSPECIFIC T WAVE ABNORMALITY HAS REPLACED INVERTED T WAVES IN ANTERIOR LEADS NONSPECIFIC T WAVE ABNORMALITY NOW EVIDENT IN LATERAL LEADS Confirmed by MD Mainor, Jitendra ([id number]) on 06/11/2020 4:08:55 PM Referred By: Confirmed By:Jitendra Hayward MD
== END 2020-06-11 11:16 | disposition home or self-care (01) ==
LOC: JER 06:22
PROC: 3E0333Z Introduction of Anti-inflammatory into Peripheral Vein, Percutaneous Approach (ICD-10-PCS; principal; 2020-06-11)
PROC: 3E033GC Introduction of Other Therapeutic Substance into Peripheral Vein, Percutaneous Approach (ICD-10-PCS; 2020-06-11)
PROC: 3E0337Z Introduction of Electrolytic and Water Balance Substance into Peripheral Vein, Percutaneous Approach (ICD-10-PCS; 2020-06-11)
DX: R51 Headache (principal)
CPT/HCPCS: 36415; 70450-TC; 80053; 80307; 81003; 82962; 84703; 85025; 93005; 93010; 99285-25; J0131

== ENCOUNTER 2020-06-13 13:37 | Emergency (ER) | payer OTHER ==
[2020-06-13 14:04] VITALS: BMI 24.5
[2020-06-13] MEDS ORDERED: SODIUM CHLORIDE 1,000 ML IV SCH (14:15)
[2020-06-13] MEDS ORDERED: ONDANSETRON 4 MG/2 ML VIAL IVPUSH ONE (14:16)
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
[2020-06-13 14:29] LABS: BASO % 0.4 % (0-2.0); EOS % 1.5 % (0-4.5); HEMATOCRIT 42.3 % (32.4-45.2); HEMOGLOBIN 13.9 GM/dL (10.7-15.3); LYMPH % 20.1 % (8-40); MCH 27.9 pg (25.7-33.7); MCHC 32.8 g/dl (32.0-36.0); MEAN CELL VOLUME 85.1 fl (80-96); PLATELET COUNT 213 K/MM3 (134-434); RBC 4.97 M/mm3 (3.60-5.2); WHITE BLOOD COUNT 11.4 K/mm3 (4.0-10.0)
[2020-06-13] MEDS ORDERED: FAMOTIDINE 20 MG/50 ML IVPB 20 MG/50 ML MG IVPB ONE (14:36)
[2020-06-13] MEDS ORDERED: MAG HYDROX/AL HYDROX/SIMETH 30 ML UNIT-DOSE CUP PO ONE (14:36)
[2020-06-13] MEDS ORDERED: ACETAMINOPHEN 1000 MG/100 ML VIAL (NON FORMULARY) IVPB ONE (14:36)
[2020-06-13] MEDS ORDERED: MAG HYDROX/AL HYDROX/SIMETH 30 ML UNIT-DOSE CUP ONE (14:57)
[2020-06-13] MEDS ORDERED: ACETAMINOPHEN INJECTION 100 ML IVPB ONE (14:57)
[2020-06-13 15:05] LABS: ALBUMIN 4.2 g/dl (3.4-5.0); BILIRUBIN,TOTAL 0.4 mg/dL (0.2-1); BLOOD UREA NITROGEN 6.6 mg/dL (7-18); CALCIUM 9.1 mg/dL (8.5-10.1); CREATININE 0.6 mg/dL (0.55-1.3); POTASSIUM 3.6 mmol/L (3.5-5.1); TOT PROT 7.4 g/dl (6.4-8.2)
--- OUTSIDE RECORDS SUMMARY | 2020-06-13 15:37 | XMS ---
:1985 Author Organization [facility] Support Name Relationship Address Phone SE, SELF-EMPLOYED Unavailable Unavailable Unavailable DOC Unavailable Unavailable Unavailable SE Unavailable Unavailable Unavailable SANIA TURCI[employer]NER [id number] [place] [address] Re-disclosure Warning The records that you are [...] is protected by Article 27-F of the [facility] Public Health law. If you continue you may haveaccess to information: Regarding HIV / AIDS; Provided by facilities licensed or operated by the [facility] Office of Mental Health; or Provided by the [facility] Office for People With Developmental Disabilities. If such information is present, then the following [facility] mandated warning applies: This information has [...] law may result in a fine or mcc sentence or both. A general authorization for the release of medical or other information is NOT sufficient authorization for further disclosure. Insurance Providers Payer name Policy type Policy ID Covered Covered constitution party's Policy P maicol / Coverage constitution party ID relationship to Blackman Inf ormation type blackman [facility] [id number] SP [id number] NON CAP PROGRESSIVE [id number] SP [id number] SELF PAY INSURANCE PENDING WC/NF [id number] SP [id number] ONLY [employer] [id number] SP [id number] [place]. MEDICAID [id number] SP [id number]
--- NOTE | 2020-06-13 15:44 | PDOC ---
Documentation entered by Saeid Tavera SCRIBE, acting as scribe for Americo Baires MD. Americo Baires MD: This documentation has been prepared by the Liang villareal Xhesika, SCRIBE, under my direction and personally reviewed by me in its entirety. I confirm that the documentation accurately reflects all work, treatment, procedures, and medical decision making performed by me. Attending Attestation - Resident Resident Name: CucoNilay - ED Attending Attestation I have performed the following: I have examined & evaluated the patient, The case was reviewed & discussed with the resident, I agree w/resident's findings & plan, Exceptions are as noted - HPI HPI: 06/13/20 14:22 The patient is a 34-year-old female with a past medical history significant of fibroid, DVT, asthma and gastric sleeve who presents to the emergency department with for nausea and vomiting. Endorses epigastric abdominal pain. Pt denies any recent sick contact. Denies any suspicious food intake or marijuana use. Denies CP, SOB, headache. Denies any URI symptoms. Allergies: NKDA - Physicial Exam PE: 06/13/20 15:47 "GENERAL: Awake, alert, and fully oriented, in no acute distress. HEAD: No signs of trauma EYES: PERRLA, EOMI, sclera anicteric, conjunctiva clear ENT: Auricles normal inspection, hearing grossly normal, nares patent, oropharynx clear without exudates. Moist mucosa NECK: Nontender, no stepoffs, Normal ROM, supple, no lymphadenopathy, JVD, or masses LUNGS: Breath sounds equal, clear to auscultation bilaterally. No wheezes, and no crackles HEART: Regular rate and rhythm, normal S1 and S2, no murmurs, rubs or gallops ABDOMEN: Soft, nontender, normoactive bowel sounds. No guarding, no rebound. No masses EXTREMITIES: Normal range of motion, no edema. No clubbing or cyanosis. No cords, erythema, or tenderness NEUROLOGICAL: Cranial nerves II through XII intact. 5/5 strength and sensation in all extremities, Normal speech, normal gait, normal cerebellar function SKIN: Warm, Dry, normal turgor, no rashes or lesions noted. - Medical Decision Making 06/13/20 15:47 34 F with N+V, epigastric pain. - Labs, lipase - GI cocktail Discharge - Discharge Information Problems reviewed: Yes Clinical Impression/Diagnosis: Vomiting alone, Dizziness, Nausea and vomiting Condition: Fair Disposition: HOME - Additional Discharge Information Prescriptions: Ondansetron [Zofran *Odt*] 4 mg GT BID 7 Days #14 tab.rapdis - Follow up/Referral Referrals: Mireya Mendoza MD [Staff Physician] - - Patient Discharge Instructions Patient Printed Discharge Instructions: DI for Vomiting -- Adult Additional Instructions: You were seen in the ED for complaints of vomiting In the ED you were evaluated with blood work, urine analysis, and imaging. Your results were negative for infection. CT scan results were communicated with boyfriend and patient. Please see the Obgyn to fix the IUD. You are increasing your chance of getting if not addressing this. There does not appear to be an acute need for immediate hospitalization. You are advised to follow up with your Primary Care Physician and Obgyn within 1 week. You were given a referral to Obgyn Dr. Mendoza. You can see your own. You were given a prescription for antivomiting medication. Please use it. Return to the ED immediately if you experience worsening nausea/vomiting, vomiting blood, severe headache. Please take a lot of fluid, get on fluid diet, then progress to soft diet like jello, then normal diet. - Post Discharge Activity
[2020-06-13] MEDS ORDERED: MECLIZINE HCL 25 MG TABLET (FP) PO ONE (16:28)
[2020-06-13] MEDS ORDERED: MECLIZINE HCL 25 MG TABLET (FP) ONE (16:34)
[2020-06-13] MEDS ORDERED: HALOPERIDOL LACTATE 5 MG/ML IM ONE (16:54)
[2020-06-13] MEDS ORDERED: HALOPERIDOL LACTATE 5 MG/ML ONE (17:10)
[2020-06-13] MEDS ORDERED: HALOPERIDOL LACTATE 5 MG/ML IV ONE (17:12)
[2020-06-13 18:57] LABS: URINE APPEARANCE CLEAR; URINE BILIRUBIN NEGATIVE (NEGATIVE); URINE COLOR YELLOW; URINE GLUCOSE (UA) NEGATIVE (NEGATIVE); URINE KETONE 1+ (NEGATIVE); URINE LEUK ESTERASE NEGATIVE (NEGATIVE); URINE NITRITE NEGATIVE (NEGATIVE); URINE PROTEIN NEGATIVE (NEGATIVE); URINE UROBILINOGEN 0.2 mg/dL (0.2-1.0)
[2020-06-13 18:59] LABS: COCAINE, UR NEGATIVE ng/ml (CUTOFF=300); OPIATES, URI NEGATIVE ng/ml (CUTOFF=300); URINE BARBITURATES NEGATIVE ng/ml (CUTOFF=200)
[2020-06-13 19:20] LABS: METHADONE, UR NEGATIVE ng/ml (CUTOFF=300); PHENCYCLIDINE,URINE NEGATIVE ng/ml (CUTOFF=25); URINE AMPHETAMINES NEGATIVE ng/ml (CUTOFF=500); URINE BENZODIAZEPINES NEGATIVE ng/ml (CUTOFF=200)
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
[2020-06-13 22:17] VITALS: BP 110/71; PULSE 72; TEMP 98
== END 2020-06-13 22:10 | disposition home or self-care (01) ==
LOC: JER 13:37
PROC: 3E033NZ Introduction of Analgesics, Hypnotics, Sedatives into Peripheral Vein, Percutaneous Approach (ICD-10-PCS; principal; 2020-06-13)
PROC: 3E033GC Introduction of Other Therapeutic Substance into Peripheral Vein, Percutaneous Approach (ICD-10-PCS; 2020-06-13)
DX: R11.10 Vomiting, unspecified (principal); R42 Dizziness and giddiness
CPT/HCPCS: 36415; 74177-TC; 80053; 80307; 81003; 83690; 84703; 85025; 87086; 96374; 96375; 99285-25; J0131; Q9967

== ENCOUNTER 2021-08-23 22:17 | Emergency (ER) | payer OTHER ==
[2021-08-23 22:32] VITALS: BP 110/78; TEMP 99.6; BMI 24.5
[2021-08-24] MEDS ORDERED: PENICILLIN G BENZATHINE 1,200,000 UNIT/2 ML PFS IM ONE ×2 (00:59→01:00)
[2021-08-24] MEDS ORDERED: KETOROLAC TROMETHAMINE 30 MG/1 ML VIAL IM ONE (00:59)
[2021-08-24] MEDS ORDERED: KETOROLAC TROMETHAMINE 30 MG/1 ML VIAL ONE (01:00)
[2021-08-24 01:50] VITALS: PULSE 88
== END 2021-08-24 01:51 | disposition home or self-care (01) ==
LOC: JER 22:17
PROC: 3E023GC Introduction of Other Therapeutic Substance into Muscle, Percutaneous Approach (ICD-10-PCS; principal; 2021-08-23)
DX: J02.0 Streptococcal pharyngitis (principal); D25.9 Leiomyoma of uterus, unspecified
CPT/HCPCS: 87651; 87804; 87807; 99284-25; C9803; U0003; U0005

== ENCOUNTER 2021-10-31 19:39 | Emergency (ER) | payer OTHER ==
[2021-10-31 19:44] VITALS: TEMP 97.8; BMI 26.4
[2021-10-31 22:43] LABS: CALCIUM 9.1 mg/dL (8.5-10.1)
[2021-10-31 22:47] LABS: CREATININE 0.7 mg/dL (0.55-1.3)
[2021-10-31 22:48] LABS: BILIRUBIN,TOTAL 0.6 mg/dL (0.2-1); TOT PROT 7.9 g/dl (6.4-8.2)
[2021-10-31 23:06] LABS: ACTIVATED PTT 29.7 SECONDS (25.2-36.5); INR 1.13 (0.83-1.09)
[2021-10-31 23:22] LABS: BASO % 0.4 % (0-2.0); EOS % 0.7 % (0-4.5); HEMOGLOBIN 12.4 GM/dL (10.7-15.3); LYMPH % 27.4 % (8-40); MCH 26.4 pg (25.7-33.7); MCHC 33.6 g/dl (32.0-36.0); MEAN CELL VOLUME 78.6 fl (80-96); MEAN PLT VOLUME 9.4 fl (7.5-11.1); MONO % 6.4 % (3.8-10.2); NEUT % 65.1 % (42.8-82.8); PLATELET COUNT 230 10^3/uL (134-434); RDW 14.4 % (11.6-15.6); WHITE BLOOD COUNT 8.9 K/mm3 (4.0-10.0)
[2021-10-31] MEDS ORDERED: ACETAMINOPHEN 500 MG TABLET (FP) PO ONE (23:57)
[2021-11-01] MEDS ORDERED: ACETAMINOPHEN 325 MG TABLET (FP) ONE (00:11)
[2021-11-01] MEDS ORDERED: KETOROLAC TROMETHAMINE 15 MG/ML VIAL IVPUSH ONE (00:18)
[2021-11-01] MEDS ORDERED: KETOROLAC TROMETHAMINE 15 MG/ML VIAL ONE (00:45)
[2021-11-01] MEDS ORDERED: SODIUM CHLORIDE 0.9% 500 ML INFUS.BAG IV ONE (02:32)
[2021-11-01 03:17] VITALS: BP 101/57; PULSE 77
[2021-11-01 04:33] LABS: URINE APPEARANCE CLEAR; URINE BILIRUBIN NEGATIVE (NEGATIVE); URINE COLOR YELLOW; URINE GLUCOSE (UA) NEGATIVE (NEGATIVE); URINE KETONE NEGATIVE (NEGATIVE); URINE LEUK ESTERASE NEGATIVE (NEGATIVE); URINE NITRITE NEGATIVE (NEGATIVE); URINE PROTEIN NEGATIVE (NEGATIVE)
== END 2021-11-01 05:21 | disposition home or self-care (01) ==
LOC: JER 19:39
PROC: 3E033GC Introduction of Other Therapeutic Substance into Peripheral Vein, Percutaneous Approach (ICD-10-PCS; principal; 2021-10-31)
DX: R10.30 Lower abdominal pain, unspecified (principal); D25.9 Leiomyoma of uterus, unspecified
CPT/HCPCS: 36415; 71046-TC-FY; 74177-TC; 76830-TC; 80053; 81003; 83690; 84703; 85025; 85610; 85730; 87086; 93005; 93010; 96374; 99285-25

== ENCOUNTER 2022-04-04 13:17 | Inpatient (IN) | payer OTHER ==
[2022-04-04 13:52] VITALS: BMI 26.4
[2022-04-04] MEDS ORDERED: ALBUTEROL SO4 2.5/IPRATROPIUM 0.5 INH SOL 3 ML VIAL.NEB. NEB ONE ×4 (14:18→23:24)
[2022-04-04] MEDS ORDERED: predniSONE 20 MG TABLET (UD) PO ONE (14:19)
[2022-04-04] MEDS ORDERED: predniSONE 20 MG TABLET (UD) ONE (14:23)
[2022-04-04] MEDS ORDERED: ALBUTEROL SO4 0.083% IH SOL 2.5 MG/3 ML VIAL.NEB. NEB ONE ×4 (15:48→17:21)
[2022-04-04] MEDS ORDERED: MAGNESIUM SULF 50% (8.12 MEQ/2 ML-1 GM VIAL) IVPB ONE (15:48)
[2022-04-04] MEDS ORDERED: MAGNESIUM SULFATE IN WATER 2 GM/50 ML IVPB IVPB ONE (15:52)
[2022-04-04 16:44] LABS: BASO % 0.4 % (0-2.0); EOS % 3.3 % (0-4.5); HEMATOCRIT 34.4 % (32.4-45.2); HEMOGLOBIN 11.3 GM/dL (10.7-15.3); MCH 24.4 pg (25.7-33.7); MCHC 32.8 g/dl (32.0-36.0); MEAN CELL VOLUME 74.3 fl (80-96); MEAN PLT VOLUME 9.1 fl (7.5-11.1); MONO % 4.9 % (3.8-10.2); NEUT % 73.4 % (42.8-82.8); PLATELET COUNT 205 10^3/uL (134-434); RBC 4.63 M/mm3 (3.60-5.2); RDW 14.4 % (11.6-15.6); WHITE BLOOD COUNT 6.2 K/mm3 (4.0-10.0)
[2022-04-04 16:54] LABS: ALBUMIN 3.9 g/dl (3.4-5.0); BLOOD UREA NITROGEN 5.3 mg/dL (7-18); CALCIUM 9.2 mg/dL (8.5-10.1)
[2022-04-04 16:58] LABS: CREATININE 0.7 mg/dL (0.55-1.3)
[2022-04-04 17:00] LABS: BILIRUBIN,TOTAL 0.3 mg/dL (0.2-1); TOT PROT 7.3 g/dl (6.4-8.2)
[2022-04-04] MEDS: ALBUTEROL SO4 0.083% IH SOL 2.5 MG/3 ML VIAL.NEB. NEB SCH ×4 (17:00→17:46)
[2022-04-04] MEDS ORDERED: LORazepam 2 MG/ML SDV VIAL IVPUSH ONE (17:18)
[2022-04-04 17:48] LABS: ARTERIAL BLD GAS O2 SATURATION 99.6 % (95-98); ARTERIAL BLOOD GAS BASE EXCESS -5.7 mmol/L (-2-2); ARTERIAL BLOOD GAS PO2 275.5 mmHg (80-100); ARTERIAL BLOOD GAS pH 7.373 (7.350-7.450)
[2022-04-04 20:04] LABS: ARTERIAL BLD GAS O2 SATURATION 99.1 % (95-98); ARTERIAL BLOOD GAS BASE EXCESS -7.3 mmol/L (-2-2); ARTERIAL BLOOD GAS PO2 165.4 mmHg (80-100); ARTERIAL BLOOD GAS pH 7.376 (7.350-7.450)
[2022-04-04 20:06] LABS: ALLENS TEST POSITIVE
[2022-04-04 20:08] LABS: VENT RATE 10
[2022-04-04] MEDS ORDERED: methylPREDNISolone NA SUCC 40 MG/1 ML VIAL IVPUSH ONE (20:08)
[2022-04-04 20:09] LABS: VENT MODE PC
[2022-04-04] MEDS ORDERED: methylPREDNISolone NA SUCC 40 MG/1 ML VIAL ONE (20:28)
[2022-04-04] MEDS ORDERED: ALBUTEROL SO4 2.5/IPRATROPIUM 0.5 INH SOL 3 ML VIAL.NEB. NEB PRN (22:36)
[2022-04-04] MEDS: ALBUTEROL SO4 2.5/IPRATROPIUM 0.5 INH SOL 3 ML VIAL.NEB. NEB SCH (23:38)
[2022-04-05] MEDS ORDERED: methylPREDNISolone NA SUCC 40 MG/1 ML VIAL IVPUSH ONE (01:22)
[2022-04-05] MEDS ORDERED: methylPREDNISolone NA SUCC 40 MG/1 ML VIAL ONE ×3 (02:21→17:18)
[2022-04-05] MEDS: methylPREDNISolone NA SUCC 40 MG/1 ML VIAL IVPUSH SCH ×3 (02:47→17:30)
[2022-04-05] MEDS ORDERED: ACETAMINOPHEN 1000 MG/100 ML BAG IVPB ONE (02:51)
[2022-04-05] MEDS ORDERED: SUMAtriptan SUCCINATE 25 MG TABLET PO ONE (03:37)
[2022-04-05] MEDS ORDERED: SUMAtriptan SUCCINATE 50 MG TABLET ONE (03:50)
[2022-04-05 06:56] LABS: HEMATOCRIT 36.3 % (32.4-45.2); HEMOGLOBIN 11.8 GM/dL (10.7-15.3); MCHC 32.6 g/dl (32.0-36.0); MEAN CELL VOLUME 73.6 fl (80-96); MEAN PLT VOLUME 9.6 fl (7.5-11.1); PLATELET COUNT 267 10^3/uL (134-434); RBC 4.94 M/mm3 (3.60-5.2); RDW 14.7 % (11.6-15.6); WHITE BLOOD COUNT 12.2 K/mm3 (4.0-10.0)
[2022-04-05 07:26] LABS: ALBUMIN 4.2 g/dl (3.4-5.0); BLOOD UREA NITROGEN 4.8 mg/dL (7-18); CALCIUM 9.6 mg/dL (8.5-10.1)
[2022-04-05 07:27] LABS: MAGNESIUM 2.3 mg/dL (1.8-2.4)
[2022-04-05 07:29] LABS: CREATININE 0.7 mg/dL (0.55-1.3); PHOSPHOROUS 3.4 mg/dL (2.5-4.9)
[2022-04-05 07:31] LABS: BILIRUBIN,TOTAL 0.4 mg/dL (0.2-1)
[2022-04-05] MEDS ORDERED: ALBUTEROL SO4 2.5/IPRATROPIUM 0.5 INH SOL 3 ML VIAL.NEB. NEB SCH (08:00)
[2022-04-05] MEDS ORDERED: ALBUTEROL SO4 2.5/IPRATROPIUM 0.5 INH SOL 3 ML VIAL.NEB. NEB ONE ×3 (08:04→16:08)
[2022-04-05] MEDS: ALBUTEROL SO4 2.5/IPRATROPIUM 0.5 INH SOL 3 ML VIAL.NEB. NEB SCH ×4 (08:05→20:45)
[2022-04-05 08:59] LABS: ANISOCYTOSIS 3+; MACROCYTOSIS 0; OVALOCYTE 1+
[2022-04-05] MEDS ORDERED: ENOXAPARIN NA (PORCINE) 40 MG/0.4 ML DISP.SYRIN SQ ONE (10:16)
[2022-04-05] MEDS: ENOXAPARIN NA (PORCINE) 40 MG/0.4 ML DISP.SYRIN SQ SCH (10:22)
[2022-04-05] MEDS ORDERED: ALBUTEROL SO4 0.083% IH SOL 2.5 MG/3 ML VIAL.NEB. NEB PRN (10:57)
[2022-04-05] MEDS: BUDESONIDE/FORMETEROL FUMARATE 160/4.5 mcg INHALER IH SCH ×2 (11:41→22:09)
[2022-04-05] MEDS ORDERED: guaiFENesin 200 MG/10 ML 10 ML UNIT-DOSE CUPS PO PRN (12:08)
[2022-04-05] MEDS ORDERED: MONTELUKAST NA 5 MG TAB.CHEW PO SCH ×2 (22:00)
[2022-04-05] MEDS ORDERED: FAMOTIDINE 10 MG TABLET PO ONE (23:04)
[2022-04-05] MEDS ORDERED: IBUPROFEN 800 MG/8 ML IJ IVPB ONE (23:05)
[2022-04-06] MEDS: methylPREDNISolone NA SUCC 40 MG/1 ML VIAL IVPUSH SCH ×2 (02:24→09:12)
[2022-04-06] MEDS ORDERED: SUMAtriptan SUCCINATE 25 MG TABLET PO ONE (03:05)
[2022-04-06 07:55] VITALS: BP 121/64; TEMP 98.2
[2022-04-06] MEDS: ALBUTEROL SO4 2.5/IPRATROPIUM 0.5 INH SOL 3 ML VIAL.NEB. NEB SCH ×2 (08:10→11:52)
[2022-04-06] MEDS: BUDESONIDE/FORMETEROL FUMARATE 160/4.5 mcg INHALER IH SCH (09:12)
[2022-04-06] MEDS: ENOXAPARIN NA (PORCINE) 40 MG/0.4 ML DISP.SYRIN SQ SCH (09:12)
[2022-04-06 11:53] VITALS: PULSE 60
== END 2022-04-06 14:15 | disposition home or self-care (01) | DRG 141 ==
LOC: JER 13:17 → JERBED 21:30 → J4W 04-05 21:27
PROVIDERS: ADMIT Internal Medicine; ATTEND Internal Medicine
PROC: 5A09357 Assistance with Respiratory Ventilation, Less than 24 Consecutive Hours, Continuous Positive Airway Pressure (ICD-10-PCS; principal; 2022-04-04)
DX: J45.901 Unspecified asthma with (acute) exacerbation (principal); Z86.718 Personal history of other venous thrombosis and embolism; G43.909 Migraine, unspecified, not intractable, without status migrainosus
CPT/HCPCS: 0241U-QW; 36415; 36600; 71045-TC-FY; 80053; 82803; 83735; 84100; 84703; 85025; 93005; 93010; 94660; 99285-25

== ENCOUNTER 2022-07-22 19:51 | Inpatient (IN) | payer OTHER ==
[2022-07-22 20:05] VITALS: BMI 26.4
[2022-07-22] MEDS ORDERED: ALBUTEROL SO4 2.5/IPRATROPIUM 0.5 INH SOL 3 ML VIAL.NEB. NEB ONE ×2 (20:28→21:11)
[2022-07-22] MEDS ORDERED: ACETAMINOPHEN 325 MG TABLET (FP) ONE (20:28)
[2022-07-22] MEDS ORDERED: ACETAMINOPHEN INJECTION 100 ML IVPB ONE (20:55)
[2022-07-22] MEDS ORDERED: methylPREDNISolone NA SUCC 125 MG/2 ML VIAL ONE (20:55)
[2022-07-22] MEDS ORDERED: MAGNESIUM SULFATE IN WATER 2 GM/50 ML IVPB IVPB ONE (20:57)
[2022-07-22] MEDS ORDERED: SODIUM CHLORIDE 0.9% 500 ML INFUS.BAG IV ONE (21:21)
[2022-07-22] MEDS ORDERED: RACEPINEPHRINE IH SOL 2.25% 11.25 MG/0.5 ML VIAL IH ONE (21:21)
[2022-07-22] MEDS ORDERED: MAGNESIUM SULF 50% (8.12 MEQ/2 ML-1 GM VIAL) IVPB ONE (21:30)
[2022-07-22] MEDS ORDERED: methylPREDNISolone NA SUCC 125 MG/2 ML VIAL IVPUSH ONE (21:30)
[2022-07-22] MEDS ORDERED: ACETAMINOPHEN 1000 MG/100 ML BAG IVPB ONE (21:31)
[2022-07-22] MEDS: ALBUTEROL SO4 2.5/IPRATROPIUM 0.5 INH SOL 3 ML VIAL.NEB. NEB SCH ×4 (21:34→22:21)
[2022-07-22 21:42] LABS: VENOUS BASE EXCESS -0.2 mmol/L (-2-2); VENOUS O2 SATURATION 86.5 % (70-80); VENOUS PCO2 40.6 mmHg (38-52); VENOUS PH 7.4 (7.310-7.410)
[2022-07-22 21:48] LABS: BASO % 0.5 % (0-2.0); EOS % 1.8 % (0-4.5); HEMOGLOBIN 11.5 GM/dL (10.7-15.3); LYMPH % 13.3 % (8-40); MCH 24.2 pg (25.7-33.7); MCHC 32.9 g/dl (32.0-36.0); MEAN CELL VOLUME 73.6 fl (80-96); MEAN PLT VOLUME 9.3 fl (7.5-11.1); MONO % 12.9 % (3.8-10.2); NEUT % 71.5 % (42.8-82.8); PLATELET COUNT 211 10^3/uL (134-434); RBC 4.76 M/mm3 (3.60-5.2); RDW 15.9 % (11.6-15.6); WHITE BLOOD COUNT 6.3 K/mm3 (4.0-10.0)
[2022-07-22 21:54] LABS: INR 1.25 (0.83-1.09); PROTHROMBIN TIME (PATIENT) 14.4 SEC (9.7-13.0)
[2022-07-22 21:58] LABS: CALCIUM 8.7 mg/dL (8.5-10.1)
[2022-07-22 21:59] LABS: ALBUMIN 3.9 g/dl (3.4-5.0); BLOOD UREA NITROGEN 7.4 mg/dL (7-18)
[2022-07-22 22:02] LABS: CREATININE 0.7 mg/dL (0.55-1.3)
[2022-07-22 22:03] LABS: BILIRUBIN,TOTAL 0.4 mg/dL (0.2-1); TOT PROT 7.2 g/dl (6.4-8.2)
[2022-07-22] MEDS ORDERED: CEFTRIAXONE 1 GM in DEXTROSE 5%-WATER - 50 ML IVPB ONE (22:42)
[2022-07-22] MEDS ORDERED: AZITHROMYCIN IVPB 500 MG in DEXTROSE 5%-WATER - 250 ML IVPB ONE (22:42)
[2022-07-22] MEDS ORDERED: CEFTRIAXONE 1 GM/50 ML BAG ONE (23:32)
[2022-07-23] MEDS ORDERED: ALBUTEROL SO4 0.083% IH SOL 2.5 MG/3 ML VIAL.NEB. NEB ONE ×4 (00:11→09:36)
[2022-07-23] MEDS ORDERED: ALBUTEROL SO4 0.5 % INH SOLN 2.5 MG/0.5 ML VIAL.NEB. NEB ONE (00:12)
[2022-07-23] MEDS: ALBUTEROL SO4 2.5/IPRATROPIUM 0.5 INH SOL 3 ML VIAL.NEB. NEB SCH ×3 (01:00→12:56)
[2022-07-23] MEDS ORDERED: AZITHROMYCIN IVPB 500 MG/250 ML BAG IVPB ONE (02:23)
[2022-07-23] MEDS: methylPREDNISolone NA SUCC 40 MG/1 ML VIAL IVPUSH SCH ×2 (02:39→09:56)
[2022-07-23] MEDS ORDERED: ACETAMINOPHEN 1000 MG/100 ML BAG IVPB ONE (04:12)
[2022-07-23] MEDS ORDERED: ACETAMINOPHEN INJECTION 100 ML IVPB ONE (04:15)
[2022-07-23] MEDS: ALBUTEROL SO4 0.083% IH SOL 2.5 MG/3 ML VIAL.NEB. NEB SCH ×3 (04:21→12:54)
[2022-07-23] MEDS ORDERED: ALBUTEROL SO4 2.5/IPRATROPIUM 0.5 INH SOL 3 ML VIAL.NEB. NEB ONE ×2 (06:33→12:55)
[2022-07-23 08:22] LABS: HEMOGLOBIN 11.3 GM/dL (10.7-15.3); MCH 24.7 pg (25.7-33.7); MCHC 33.3 g/dl (32.0-36.0); MEAN CELL VOLUME 74.1 fl (80-96); MEAN PLT VOLUME 9.1 fl (7.5-11.1); PLATELET COUNT 194 10^3/uL (134-434); RBC 4.59 M/mm3 (3.60-5.2); RDW 15.9 % (11.6-15.6); WHITE BLOOD COUNT 5.7 K/mm3 (4.0-10.0)
[2022-07-23 08:27] LABS: ALBUMIN 3.8 g/dl (3.4-5.0); BLOOD UREA NITROGEN 6.7 mg/dL (7-18); MAGNESIUM 2.6 mg/dL (1.8-2.4)
[2022-07-23 08:30] LABS: CREATININE 0.7 mg/dL (0.55-1.3); PHOSPHOROUS 2.1 mg/dL (2.5-4.9)
[2022-07-23 08:31] LABS: BILIRUBIN,TOTAL 0.2 mg/dL (0.2-1); TOT PROT 7.3 g/dl (6.4-8.2)
[2022-07-23 09:10] LABS: ANISOCYTOSIS 3+; MACROCYTOSIS 0
[2022-07-23] MEDS ORDERED: ENOXAPARIN NA (PORCINE) 40 MG/0.4 ML DISP.SYRIN SQ ONE (09:36)
[2022-07-23] MEDS ORDERED: methylPREDNISolone NA SUCC 40 MG/1 ML VIAL ONE (09:37)
[2022-07-23] MEDS ORDERED: ENOXAPARIN NA (PORCINE) 40 MG/0.4 ML DISP.SYRIN SQ SCH (10:00)
[2022-07-23] MEDS ORDERED: methylPREDNISolone NA SUCC 40 MG/1 ML VIAL IVPUSH SCH (10:00)
[2022-07-23] MEDS ORDERED: AZITHROMYCIN IVPB 250 MG in DEXTROSE 5%-WATER - 250 ML IVPB SCH (10:00)
[2022-07-23] MEDS ORDERED: CEFTRIAXONE 1 GM in DEXTROSE 5%-WATER - 50 ML IVPB SCH (10:00)
[2022-07-23] MEDS ORDERED: BUDESONIDE/FORMETEROL FUMARATE 160/4.5 mcg INHALER IH SCH (10:00)
[2022-07-23 11:46] VITALS: BP 122/77; PULSE 75; RESP 20; TEMP 98.1
[2022-07-24] MEDS ORDERED: AZITHROMYCIN IVPB 250 MG in DEXTROSE 5%-WATER - 250 ML IVPB SCH (06:00)
== END 2022-07-23 13:18 | disposition home or self-care (01) | DRG 141 ==
LOC: JER 19:51 → JERBED 23:15
PROVIDERS: ADMIT Internal Medicine; ATTEND Internal Medicine
DX: J45.901 Unspecified asthma with (acute) exacerbation (principal); G43.909 Migraine, unspecified, not intractable, without status migrainosus
CPT/HCPCS: 0241U-QW; 36415; 71045-TC-FY; 80053; 82803; 83735; 84100; 84484; 84703; 85025; 85610; 93005; 93010; 94660; 99285-25

== ENCOUNTER 2023-02-14 18:59 | Emergency (ER) | payer OTHER ==
[2023-02-14 19:05] VITALS: BP 118/73; PULSE 88; RESP 18; TEMP 97.6; BMI 29.0
[2023-02-14 20:03] LABS: BASO % 0.5 % (0-2.0); EOS % 1.1 % (0-4.5); HEMATOCRIT 34.8 % (32.4-45.2); HEMOGLOBIN 11.4 GM/dL (10.7-15.3); LYMPH % 28.7 % (8-40); MCH 23.7 pg (25.7-33.7); MCHC 32.9 g/dl (32.0-36.0); MEAN CELL VOLUME 72.1 fl (80-96); MEAN PLT VOLUME 9.2 fl (7.5-11.1); MONO % 8.6 % (3.8-10.2); NEUT % 61.1 % (42.8-82.8); PLATELET COUNT 243 10^3/uL (134-434); RBC 4.82 M/mm3 (3.60-5.2); WHITE BLOOD COUNT 9.5 K/mm3 (4.0-10.0)
[2023-02-14 20:05] LABS: PH,URINE 5.5 (5.0-8.0); URINE APPEARANCE TURBID; URINE BILIRUBIN NEGATIVE (NEGATIVE); URINE COLOR YELLOW; URINE GLUCOSE (UA) NEGATIVE (NEGATIVE); URINE KETONE TRACE (NEGATIVE); URINE LEUK ESTERASE NEGATIVE (NEGATIVE); URINE NITRITE NEGATIVE (NEGATIVE); URINE PROTEIN TRACE (NEGATIVE); URINE UROBILINOGEN 0.2 mg/dL (0.2-1.0)
[2023-02-14 20:08] LABS: HCG,QUALITATIVE URINE Negative
[2023-02-14 20:16] LABS: POTASSIUM 3.8 mmol/L (3.5-5.1)
[2023-02-14 20:18] LABS: ALBUMIN 4.1 g/dl (3.4-5.0); CALCIUM 9.4 mg/dL (8.5-10.1)
[2023-02-14 20:19] LABS: BLOOD UREA NITROGEN 6.2 mg/dL (7-18)
[2023-02-14 20:22] LABS: CREATININE 0.6 mg/dL (0.55-1.3)
[2023-02-14 20:23] LABS: BILIRUBIN,TOTAL 0.3 mg/dL (0.2-1); TOT PROT 7.6 g/dl (6.4-8.2)
[2023-02-14] MEDS ORDERED: ONDANSETRON 4 MG/2 ML VIAL IVPUSH ONE (20:24)
[2023-02-14] MEDS ORDERED: ACETAMINOPHEN 1000 MG/100 ML BAG IVPB ONE (20:24)
[2023-02-14] MEDS ORDERED: SODIUM CHLORIDE 0.9% 1000 ML INFUS.BAG IV ONE (20:24)
[2023-02-14] MEDS ORDERED: FAMOTIDINE 20 MG/50 ML IVPB 20 MG/50 ML MG IVPB ONE ×2 (20:24→20:48)
[2023-02-14] MEDS ORDERED: ONDANSETRON 4 MG/2 ML VIAL ONE (20:28)
[2023-02-14] MEDS ORDERED: ACETAMINOPHEN INJECTION 100 ML IVPB ONE (20:28)
[2023-02-14] MEDS ORDERED: KETOROLAC TROMETHAMINE 15 MG/ML VIAL IVPUSH ONE (23:20)
[2023-02-14] MEDS ORDERED: KETOROLAC TROMETHAMINE 15 MG/ML VIAL ONE (23:26)
== END 2023-02-15 00:45 | disposition home or self-care (01) ==
LOC: JER 18:59 → JERFT 18:59
PROC: 3E033GC Introduction of Other Therapeutic Substance into Peripheral Vein, Percutaneous Approach (ICD-10-PCS; principal; 2023-02-14)
PROC: 3E0333Z Introduction of Anti-inflammatory into Peripheral Vein, Percutaneous Approach (ICD-10-PCS; 2023-02-14)
PROC: 3E033GC Introduction of Other Therapeutic Substance into Peripheral Vein, Percutaneous Approach (ICD-10-PCS; 2023-02-14)
PROC: 3E033GC Introduction of Other Therapeutic Substance into Peripheral Vein, Percutaneous Approach (ICD-10-PCS; 2023-02-14)
DX: N83.209 Unspecified ovarian cyst, unspecified side (principal); R10.30 Lower abdominal pain, unspecified
CPT/HCPCS: 36415; 74177-TC; 76830-TC; 80053; 81003; 83690; 84703; 85025; 87086; 99285-25; Q9967

== ENCOUNTER 2023-03-29 20:56 | Observation (INO) | payer OTHER ==
[2023-03-29 21:03] VITALS: BMI 28.1
[2023-03-29] MEDS ORDERED: SODIUM CHLORIDE 500 ML IV STA (21:25)
[2023-03-29] MEDS ORDERED: FAMOTIDINE 20 MG/50 ML IVPB 20 MG/50 ML MG IVPB ONE ×2 (21:26→22:08)
[2023-03-29] MEDS ORDERED: ONDANSETRON 4 MG/2 ML VIAL IVPUSH ONE ×2 (21:26→23:42)
[2023-03-29] MEDS ORDERED: ONDANSETRON 4 MG/2 ML VIAL ONE ×2 (22:08→23:45)
[2023-03-29 22:14] LABS: BASO % 0.7 % (0-2.0); EOS % 1.6 % (0-4.5); HEMATOCRIT 38.4 % (32.4-45.2); LYMPH % 28.4 % (8-40); MCH 23.5 pg (25.7-33.7); MCHC 31.2 g/dl (32.0-36.0); MEAN CELL VOLUME 75.5 fl (80-96); MEAN PLT VOLUME 9.3 fl (7.5-11.1); MONO % 8.2 % (3.8-10.2); NEUT % 61.1 % (42.8-82.8); PLATELET COUNT 283 10^3/uL (134-434); RBC 5.08 M/mm3 (3.60-5.2); RDW 18.2 % (11.6-15.6); WHITE BLOOD COUNT 9.7 K/mm3 (4.0-10.0)
[2023-03-29 22:16] LABS: PH,URINE 5.5 (5.0-8.0); URINE APPEARANCE CLEAR; URINE BILIRUBIN NEGATIVE (NEGATIVE); URINE COLOR YELLOW; URINE GLUCOSE (UA) NEGATIVE (NEGATIVE); URINE KETONE NEGATIVE (NEGATIVE); URINE LEUK ESTERASE NEGATIVE (NEGATIVE); URINE NITRITE NEGATIVE (NEGATIVE); URINE PROTEIN NEGATIVE (NEGATIVE)
[2023-03-29 22:33] LABS: CHLORIDE 107 mmol/L (98-107); POTASSIUM 3.9 mmol/L (3.5-5.1); SODIUM 140 mmol/L (136-145)
[2023-03-29 22:35] LABS: CALCIUM 9.4 mg/dL (8.5-10.1)
[2023-03-29 22:36] LABS: ALBUMIN 4.2 g/dl (3.4-5.0); ANION GAP 7 MMOL/L (8-16); BLOOD UREA NITROGEN 4.7 mg/dL (7-18); CO2 26 mmol/L (21-32); GLUCOSE,RANDOM 93 mg/dL (74-106); LIPASE 332 U/L (73-393)
[2023-03-29 22:39] LABS: CREATININE 0.7 mg/dL (0.55-1.3); SGOT/AST 13 U/L (15-37); SGPT/ALT 21 U/L (13-61)
[2023-03-29 22:41] LABS: BILIRUBIN,TOTAL 0.5 mg/dL (0.2-1); TOT PROT 7.6 g/dl (6.4-8.2)
[2023-03-29 22:42] LABS: ALK PHOS 81 U/L (45-117)
[2023-03-29] MEDS ORDERED: METOCLOPRAMIDE HCL INJECTION 10 MG/2 ML VIAL IVPUSH ONE (23:59)
[2023-03-30] MEDS ORDERED: METOCLOPRAMIDE HCL INJECTION 10 MG/2 ML VIAL ONE (00:03)
[2023-03-30] MEDS ORDERED: HYDROmorphone HCl 2 MG/ML VIAL IVPUSH ONE (00:41)
[2023-03-30] MEDS ORDERED: ACETAMINOPHEN 1000 MG/100 ML BAG IVPB ONE ×2 (01:55→04:09)
[2023-03-30] MEDS ORDERED: HYDROmorphone HCl 2 MG/ML VIAL ONE (02:27)
[2023-03-30] MEDS ORDERED: LACTATED RINGERS SOLUTION 1,000 ML/1,000 ML INFUS.BAG IV SCH (04:15)
[2023-03-30] MEDS ORDERED: ACETAMINOPHEN INJECTION 100 ML IVPB ONE (04:36)
[2023-03-30] MEDS ORDERED: KETOROLAC TROMETHAMINE 15 MG/ML VIAL IVPUSH ONE (05:42)
[2023-03-30] MEDS ORDERED: KETOROLAC TROMETHAMINE 15 MG/ML VIAL ONE (06:17)
[2023-03-30 07:19] VITALS: RESP 18
[2023-03-30] MEDS ORDERED: ALBUTEROL SO4 HFA INHALER IH PRN (08:02)
[2023-03-30] MEDS ORDERED: ONDANSETRON 4 MG/2 ML VIAL IVPUSH PRN (08:03)
[2023-03-30] MEDS ORDERED: ACETAMINOPHEN 1000 MG/100 ML BAG IVPB PRN (08:07)
[2023-03-30] MEDS ORDERED: LACTATED RINGERS SOLUTION 1,000 ML IV SCH (08:15)
[2023-03-30 10:25] LABS: BASO % 0.5 % (0-2.0); EOS % 2.9 % (0-4.5); HEMATOCRIT 31.9 % (32.4-45.2); HEMOGLOBIN 10.2 GM/dL (10.7-15.3); LYMPH % 36.2 % (8-40); MCHC 32.2 g/dl (32.0-36.0); MEAN CELL VOLUME 74.7 fl (80-96); MEAN PLT VOLUME 9.6 fl (7.5-11.1); MONO % 6.3 % (3.8-10.2); NEUT % 54.1 % (42.8-82.8); PLATELET COUNT 247 10^3/uL (134-434); RBC 4.27 M/mm3 (3.60-5.2); RDW 17.5 % (11.6-15.6); WHITE BLOOD COUNT 7.6 K/mm3 (4.0-10.0)
[2023-03-30 10:58] LABS: POTASSIUM 3.4 mmol/L (3.5-5.1)
[2023-03-30 11:01] LABS: CALCIUM 8.6 mg/dL (8.5-10.1)
[2023-03-30 11:02] LABS: ALBUMIN 3.4 g/dl (3.4-5.0); BLOOD UREA NITROGEN 3.4 mg/dL (7-18)
[2023-03-30 11:05] LABS: CREATININE 0.7 mg/dL (0.55-1.3); PHOSPHOROUS 3.8 mg/dL (2.5-4.9)
[2023-03-30 11:07] LABS: BILIRUBIN,TOTAL 0.6 mg/dL (0.2-1); TOT PROT 6.2 g/dl (6.4-8.2)
[2023-03-30] MEDS ORDERED: POTASSIUM CHLORIDE TABS 20 MEQ TABLET.ER (FP) PO ONE (13:43)
[2023-03-30 14:23] VITALS: BP 101/64; PULSE 73; TEMP 98
== END 2023-03-30 15:15 | disposition home or self-care (01) ==
LOC: JER 20:56 → JERBED 03-30 05:40 → J6S 03-30 09:46
PROVIDERS: ADMIT Internal Medicine; ATTEND Internal Medicine
PROC: 3E033NZ Introduction of Analgesics, Hypnotics, Sedatives into Peripheral Vein, Percutaneous Approach (ICD-10-PCS; principal; 2023-03-30)
PROC: 3E033GC Introduction of Other Therapeutic Substance into Peripheral Vein, Percutaneous Approach (ICD-10-PCS; 2023-03-30)
PROC: 3E033NZ Introduction of Analgesics, Hypnotics, Sedatives into Peripheral Vein, Percutaneous Approach (ICD-10-PCS; 2023-03-30)
PROC: 3E0333Z Introduction of Anti-inflammatory into Peripheral Vein, Percutaneous Approach (ICD-10-PCS; 2023-03-30)
PROC: 3E0337Z Introduction of Electrolytic and Water Balance Substance into Peripheral Vein, Percutaneous Approach (ICD-10-PCS; 2023-03-30)
DX: R10.9 Unspecified abdominal pain (principal); D25.9 Leiomyoma of uterus, unspecified; N83.202 Unspecified ovarian cyst, left side; Z98.84 Bariatric surgery status; R11.10 Vomiting, unspecified; J45.909 Unspecified asthma, uncomplicated; R51.9 Headache, unspecified; K59.00 Constipation, unspecified; Z86.73 Personal history of transient ischemic attack (TIA), and cerebral infarction without residual deficits; R50.9 Fever, unspecified
CPT/HCPCS: 0241U-QW; 36415; 70450-TC; 74177-TC; 76830-TC; 80053; 81003; 83605; 83690; 83735; 84100; 84443; 84702; 84703; 85025; 93005; 93010; 96361; 96365; 96375; 99285-25; G0378; Q9967

== ENCOUNTER 2023-04-22 05:52 | Observation (INO) | payer OTHER ==
[2023-04-22 06:00] VITALS: BMI 30.2
[2023-04-22] MEDS ORDERED: ALBUTEROL SO4 2.5/IPRATROPIUM 0.5 INH SOL 3 ML VIAL.NEB. NEB ONE ×3 (06:16→06:37)
[2023-04-22] MEDS ORDERED: MAGNESIUM SULFATE IN WATER 2 GM/50 ML IVPB IVPB ONE ×2 (06:19→06:44)
[2023-04-22] MEDS ORDERED: METOCLOPRAMIDE HCL INJECTION 10 MG/2 ML VIAL IVPUSH ONE (06:23)
[2023-04-22] MEDS ORDERED: ACETAMINOPHEN 1000 MG/100 ML BAG IVPB ONE (06:23)
[2023-04-22] MEDS ORDERED: SODIUM CHLORIDE 0.9% 500 ML INFUS.BAG IV ONE (06:23)
[2023-04-22] MEDS ORDERED: METOCLOPRAMIDE HCL INJECTION 10 MG/2 ML VIAL ONE (06:43)
[2023-04-22] MEDS ORDERED: ACETAMINOPHEN INJECTION 100 ML IVPB ONE (06:43)
[2023-04-22 07:11] LABS: BASO % 0.5 % (0-2.0); EOS % 2.1 % (0-4.5); HEMATOCRIT 33.2 % (32.4-45.2); HEMOGLOBIN 10.8 GM/dL (10.7-15.3); LYMPH % 32.7 % (8-40); MCHC 32.5 g/dl (32.0-36.0); MEAN CELL VOLUME 73.9 fl (80-96); MEAN PLT VOLUME 9.3 fl (7.5-11.1); NEUT % 56.7 % (42.8-82.8); PLATELET COUNT 249 10^3/uL (134-434); RDW 16.2 % (11.6-15.6)
[2023-04-22 07:13] LABS: WHITE BLOOD COUNT 9.3 K/mm3 (4.0-10.0)
[2023-04-22 07:20] LABS: POTASSIUM 3.6 mmol/L (3.5-5.1)
[2023-04-22 07:21] LABS: BLOOD UREA NITROGEN 9.4 mg/dL (7-18); CALCIUM 8.9 mg/dL (8.5-10.1); MAGNESIUM 2.2 mg/dL (1.8-2.4)
[2023-04-22 07:25] LABS: CREATININE 0.7 mg/dL (0.55-1.3)
[2023-04-22 07:27] LABS: BILIRUBIN,TOTAL 0.2 mg/dL (0.2-1); TOT PROT 7.3 g/dl (6.4-8.2)
[2023-04-22] MEDS ORDERED: ALBUTEROL SO4 0.083% IH SOL 2.5 MG/3 ML VIAL.NEB. NEB ONE ×2 (08:51→09:19)
[2023-04-22 08:52] LABS: PLATELET ESTIMATE ADEQUATE
[2023-04-22] MEDS ORDERED: ALBUTEROL SO4 0.083% IH SOL 2.5 MG/3 ML VIAL.NEB. NEB PRN (10:34)
[2023-04-22] MEDS ORDERED: KETOROLAC TROMETHAMINE 15 MG/ML VIAL IVPUSH PRN (11:30)
[2023-04-22] MEDS ORDERED: METOCLOPRAMIDE HCL INJECTION 10 MG/2 ML VIAL IVPUSH PRN (11:30)
[2023-04-22] MEDS ORDERED: ALBUTEROL SO4 2.5/IPRATROPIUM 0.5 INH SOL 3 ML VIAL.NEB. NEB SCH (14:00)
[2023-04-22] MEDS: PANTOPRAZOLE 40 MG TABLET PO SCH (20:06)
[2023-04-22] MEDS: MECLIZINE HCL 25 MG TABLET (FP) PO PRN (21:53)
[2023-04-22] MEDS ORDERED: DOCUSATE SODIUM 100 MG CAPSULE (FP) PO SCH (22:00)
[2023-04-22] MEDS ORDERED: ACETAMINOPHEN 325 MG TABLET (FP) PO ONE (22:10)
[2023-04-23] MEDS ORDERED: oxyCODONE HCL 5 MG TABLET PO ONE (01:26)
[2023-04-23] MEDS ORDERED: MELATONIN 5 MG TABLETS PO ONE (04:17)
[2023-04-23] MEDS: ALBUTEROL SO4 2.5/IPRATROPIUM 0.5 INH SOL 3 ML VIAL.NEB. NEB SCH ×4 (08:49→20:30)
[2023-04-23] MEDS ORDERED: ENOXAPARIN NA (PORCINE) 40 MG/0.4 ML DISP.SYRIN SQ SCH (10:00)
[2023-04-23] MEDS: PANTOPRAZOLE 40 MG TABLET PO SCH (11:00)
[2023-04-23] MEDS: predniSONE 20 MG TABLET (UD) PO SCH (11:00)
[2023-04-23] MEDS ORDERED: ACETAMINOPHEN 325 MG TABLET (FP) PO PRN (11:09)
[2023-04-23] MEDS ORDERED: DOCUSATE SODIUM 100 MG CAPSULE (FP) PO SCH (11:10)
[2023-04-23] MEDS ORDERED: POLYETHYLENE GLYCOL (HEALTHYLAX) 3350 17 GM PACKET PO ONE (11:30)
[2023-04-23 12:24] LABS: BASO % 0.2 % (0-2.0); EOS % 0.2 % (0-4.5); HEMATOCRIT 31.2 % (32.4-45.2); HEMOGLOBIN 9.8 GM/dL (10.7-15.3); LYMPH % 15.1 % (8-40); MCH 23.8 pg (25.7-33.7); MCHC 31.6 g/dl (32.0-36.0); MEAN CELL VOLUME 75.4 fl (80-96); MEAN PLT VOLUME 9.6 fl (7.5-11.1); MONO % 5.5 % (3.8-10.2); PLATELET COUNT 306 10^3/uL (134-434); RBC 4.13 M/mm3 (3.60-5.2); RDW 16.6 % (11.6-15.6); WHITE BLOOD COUNT 17.6 K/mm3 (4.0-10.0)
[2023-04-23 12:39] LABS: POTASSIUM 4.5 mmol/L (3.5-5.1)
[2023-04-23 12:45] LABS: ALBUMIN 3.6 g/dl (3.4-5.0); BLOOD UREA NITROGEN 5.5 mg/dL (7-18); MAGNESIUM 2.3 mg/dL (1.8-2.4)
[2023-04-23 12:47] LABS: CREATININE 0.6 mg/dL (0.55-1.3); PHOSPHOROUS 2.9 mg/dL (2.5-4.9)
[2023-04-23 12:49] LABS: BILIRUBIN,TOTAL 0.3 mg/dL (0.2-1); TOT PROT 6.9 g/dl (6.4-8.2)
[2023-04-23] MEDS: MAGNESIUM OXIDE 400 MG TABLET (FP) PO SCH ×2 (12:51→22:18)
[2023-04-23] MEDS ORDERED: SUMAtriptan SUCCINATE 25 MG TABLET PO PRN (13:00)
[2023-04-23] MEDS ORDERED: POLYETHYLENE GLYCOL (HEALTHYLAX) 3350 17 GM PACKET PO SCH (22:00)
[2023-04-23] MEDS ORDERED: QUEtiapine FUMARATE 25 MG TABLET PO SCH (22:00)
[2023-04-23] MEDS: MONTELUKAST NA 10 MG TABLET PO SCH (22:18)
[2023-04-24] MEDS: MECLIZINE HCL 25 MG TABLET (FP) PO PRN (00:24)
[2023-04-24] MEDS: ACETAMINOPHEN/CAFFEINE/BUTALBITAL 1 TAB PO PRN ×4 (00:41→19:14)
[2023-04-24] MEDS: BUDESONIDE/FORMETEROL FUMARATE 160/4.5 mcg INHALER IH SCH ×3 (00:54→21:58)
[2023-04-24] MEDS: ALBUTEROL SO4 2.5/IPRATROPIUM 0.5 INH SOL 3 ML VIAL.NEB. NEB SCH ×4 (07:40→20:30)
[2023-04-24] MEDS ORDERED: SUMAtriptan SUCCINATE 25 MG TABLET PO PRN (09:46)
[2023-04-24] MEDS ORDERED: ONDANSETRON 4 MG/2 ML VIAL IVPUSH PRN (09:48)
[2023-04-24] MEDS: predniSONE 20 MG TABLET (UD) PO SCH (11:26)
[2023-04-24] MEDS: BISACODYL 10 MG SUPP.RECT PR ONE ×2 (11:26→15:47)
[2023-04-24] MEDS: MAGNESIUM OXIDE 400 MG TABLET (FP) PO SCH ×2 (11:26→21:58)
[2023-04-24] MEDS: PANTOPRAZOLE 40 MG TABLET PO SCH (11:26)
[2023-04-24] MEDS: METOCLOPRAMIDE HCL INJECTION 10 MG/2 ML VIAL IVPUSH SCH ×2 (11:27→19:14)
[2023-04-24] MEDS ORDERED: VERAPAMIL HCL 80 MG TABLET PO ONE (11:30)
[2023-04-24] MEDS ORDERED: POLYETHYLENE GLYCOL (HEALTHYLAX) 3350 17 GM PACKET PO SCH (14:00)
[2023-04-24] MEDS: MONTELUKAST NA 10 MG TABLET PO SCH (21:58)
[2023-04-24] MEDS: LIDOCAINE PATCH REMOVAL MC SCH (22:01)
[2023-04-25] MEDS: METOCLOPRAMIDE HCL INJECTION 10 MG/2 ML VIAL IVPUSH SCH ×3 (01:58→10:13)
[2023-04-25] MEDS: ACETAMINOPHEN/CAFFEINE/BUTALBITAL 1 TAB PO PRN ×3 (02:06→18:59)
[2023-04-25] MEDS: MECLIZINE HCL 25 MG TABLET (FP) PO PRN (02:06)
[2023-04-25] MEDS ORDERED: METOCLOPRAMIDE HCL 10 MG TABLET (FP) PO ONE (04:10)
[2023-04-25] MEDS ORDERED: MELATONIN 5 MG TABLETS PO ONE (04:16)
[2023-04-25] MEDS: ALBUTEROL SO4 2.5/IPRATROPIUM 0.5 INH SOL 3 ML VIAL.NEB. NEB SCH ×4 (07:55→20:30)
[2023-04-25 08:23] LABS: INR 1.13 (0.83-1.09); PROTHROMBIN TIME (PATIENT) 13.1 SEC (9.7-13.0)
[2023-04-25] MEDS ORDERED: VERAPAMIL HCL 80 MG TABLET PO SCH (10:00)
[2023-04-25] MEDS ORDERED: POLYETHYLENE GLYCOL (HEALTHYLAX) 3350 17 GM PACKET PO SCH (10:00)
[2023-04-25] MEDS: LIDOCAINE 5% TOPICAL PATCH TP SCH (10:12)
[2023-04-25] MEDS: VERAPAMIL HCL 80 MG TABLET PO SCH (10:13)
[2023-04-25] MEDS: PANTOPRAZOLE 40 MG TABLET PO SCH (10:13)
[2023-04-25] MEDS: MAGNESIUM OXIDE 400 MG TABLET (FP) PO SCH ×2 (10:13→21:27)
[2023-04-25] MEDS: BUDESONIDE/FORMETEROL FUMARATE 160/4.5 mcg INHALER IH SCH ×2 (10:13→21:29)
[2023-04-25] MEDS: predniSONE 20 MG TABLET (UD) PO SCH (10:13)
[2023-04-25] MEDS: predniSONE 10 MG TABLET (UD) PO SCH ×3 (12:43→19:52)
[2023-04-25] MEDS: POLYETHYLENE GLYCOL (HEALTHYLAX) 3350 17 GM PACKET PO SCH ×2 (14:00→21:27)
[2023-04-25] MEDS: SUMAtriptan SUCCINATE 25 MG TABLET PO PRN ×2 (19:00→21:27)
[2023-04-25] MEDS: MONTELUKAST NA 10 MG TABLET PO SCH (21:27)
[2023-04-25] MEDS: LIDOCAINE PATCH REMOVAL MC SCH (21:28)
[2023-04-25] MEDS ORDERED: BISACODYL 10 MG SUPP.RECT PR ONE (22:19)
[2023-04-26] MEDS ORDERED: ACETAMINOPHEN 1000 MG/100 ML BAG IVPB ONE ×2 (00:57→05:37)
[2023-04-26] MEDS: POLYETHYLENE GLYCOL (HEALTHYLAX) 3350 17 GM PACKET PO SCH ×2 (05:34→16:24)
[2023-04-26] MEDS ORDERED: traMADol HCL 50 MG TABLET PO PRN (07:55)
[2023-04-26] MEDS: ALBUTEROL SO4 2.5/IPRATROPIUM 0.5 INH SOL 3 ML VIAL.NEB. NEB SCH ×2 (08:55→12:07)
[2023-04-26 09:16] LABS: BASO % 0.6 % (0-2.0); EOS % 0.4 % (0-4.5); HEMATOCRIT 30.5 % (32.4-45.2); HEMOGLOBIN 10.1 GM/dL (10.7-15.3); LYMPH % 35.6 % (8-40); MEAN CELL VOLUME 72.8 fl (80-96); MEAN PLT VOLUME 9.3 fl (7.5-11.1); MONO % 6.5 % (3.8-10.2); NEUT % 56.9 % (42.8-82.8); PLATELET COUNT 279 10^3/uL (134-434); RBC 4.19 M/mm3 (3.60-5.2); RDW 16.3 % (11.6-15.6); WHITE BLOOD COUNT 11.7 K/mm3 (4.0-10.0)
[2023-04-26 09:17] LABS: INR 1.14 (0.83-1.09); PROTHROMBIN TIME (PATIENT) 13.2 SEC (9.7-13.0)
[2023-04-26 09:35] LABS: CHLORIDE 107 mmol/L (98-107); SODIUM 140 mmol/L (136-145)
[2023-04-26 09:37] LABS: CALCIUM 8.3 mg/dL (8.5-10.1)
[2023-04-26 09:38] LABS: ALBUMIN 3.4 g/dl (3.4-5.0); ANION GAP 7 MMOL/L (8-16); BLOOD UREA NITROGEN 8.4 mg/dL (7-18); CO2 26 mmol/L (21-32); GLUCOSE,RANDOM 82 mg/dL (74-106); MAGNESIUM 2.4 mg/dL (1.8-2.4)
[2023-04-26 09:41] LABS: CREATININE 0.6 mg/dL (0.55-1.3); SGOT/AST 7 U/L (15-37); SGPT/ALT 18 U/L (13-61)
[2023-04-26 09:42] LABS: BILIRUBIN,TOTAL < 0.1 mg/dL (0.2-1); TOT PROT 6.3 g/dl (6.4-8.2)
[2023-04-26 09:44] LABS: ALK PHOS 75 U/L (45-117)
[2023-04-26] MEDS: PANTOPRAZOLE 40 MG TABLET PO SCH (09:44)
[2023-04-26] MEDS: MAGNESIUM OXIDE 400 MG TABLET (FP) PO SCH (09:44)
[2023-04-26] MEDS: BUDESONIDE/FORMETEROL FUMARATE 160/4.5 mcg INHALER IH SCH (09:45)
[2023-04-26] MEDS: VERAPAMIL HCL 80 MG TABLET PO SCH ×2 (09:45→09:56)
[2023-04-26] MEDS ORDERED: predniSONE 20 MG TABLET (UD) PO ONE (10:00)
[2023-04-26] MEDS: LIDOCAINE 5% TOPICAL PATCH TP SCH (15:18)
[2023-04-26 16:32] VITALS: BP 125/86; PULSE 82; RESP 18; TEMP 97.7
== END 2023-04-26 16:53 | disposition home or self-care (01) ==
LOC: JER 05:52 → JERBED 08:51 → J5S 18:25
PROVIDERS: ADMIT Internal Medicine; ATTEND Nurse Practitioner Acute Care
PROC: 3E033NZ Introduction of Analgesics, Hypnotics, Sedatives into Peripheral Vein, Percutaneous Approach (ICD-10-PCS; principal; 2023-04-22)
PROC: 3E0F7GC Introduction of Other Therapeutic Substance into Respiratory Tract, Via Natural or Artificial Opening (ICD-10-PCS; 2023-04-22)
PROC: 3E033GC Introduction of Other Therapeutic Substance into Peripheral Vein, Percutaneous Approach (ICD-10-PCS; 2023-04-22)
PROC: 3E0337Z Introduction of Electrolytic and Water Balance Substance into Peripheral Vein, Percutaneous Approach (ICD-10-PCS; 2023-04-22)
DX: J45.901 Unspecified asthma with (acute) exacerbation (principal); G43.909 Migraine, unspecified, not intractable, without status migrainosus; R11.10 Vomiting, unspecified; R42 Dizziness and giddiness; Z29.9 Encounter for prophylactic measures, unspecified; G47.00 Insomnia, unspecified; Z98.84 Bariatric surgery status; K44.9 Diaphragmatic hernia without obstruction or gangrene
CPT/HCPCS: 0241U-QW; 36415; 70450-TC; 71045-TC-FY; 74018-TC-FY; 74240-TC-FY; 76705-TC; 80053; 83735; 84100; 84702; 85025; 85610; 93005; 93010; 94640; 95816; 96365; 96375; 96376; 97116-GP; 97161-GP; 99285-25; G0378

== ENCOUNTER 2023-05-07 05:09 | Day surgery (SDC) | payer OTHER ==
[2023-05-07 12:20] VITALS: BMI 27.9
[2023-05-07] MEDS ORDERED: LIDOCAINE HCL 2% 100 MG/5 ML DISP.SYRIN ONE (13:24)
[2023-05-07] MEDS ORDERED: LIDOCAINE VISCOUS 2% ORAL/TOP 15 ML UNIT-DOSE CUP MM ONE (13:30)
[2023-05-07 14:57] VITALS: TEMP 97
[2023-05-07 14:58] VITALS: PULSE 76
[2023-05-07 15:01] VITALS: BP 100/50; RESP 20
== END 2023-05-07 15:13 | disposition home or self-care (01) ==
LOC: JASU-ENDO 05:09
PROVIDERS: ATTEND Student in an Organized Health Care Education/Training Program
PROC: 0DB68ZX Excision of Stomach, Via Natural or Artificial Opening Endoscopic, Diagnostic (ICD-10-PCS; 2023-05-07)
PROC: 0DB48ZX Excision of Esophagogastric Junction, Via Natural or Artificial Opening Endoscopic, Diagnostic (ICD-10-PCS; 2023-05-07)
PROC: 0DB98ZX Excision of Duodenum, Via Natural or Artificial Opening Endoscopic, Diagnostic (ICD-10-PCS; principal; 2023-05-07 13:00)
DX: K29.60 Other gastritis without bleeding (principal); K44.9 Diaphragmatic hernia without obstruction or gangrene; K20.90 Esophagitis, unspecified without bleeding
CPT/HCPCS: 81025; 88305-TC; 88312-TC; 88342-TC

== ENCOUNTER 2023-12-27 15:33 | Inpatient (IN) | payer OTHER ==
[2023-12-27] MEDS ORDERED: METOCLOPRAMIDE HCL INJECTION 10 MG/2 ML VIAL ONE (16:56)
[2023-12-27] MEDS ORDERED: FAMOTIDINE 20 MG/50 ML IVPB 20 MG/50 ML MG IVPB ONE (16:56)
[2023-12-27] MEDS: METOCLOPRAMIDE HCL INJECTION 10 MG/2 ML VIAL IVPB ONE (16:57)
[2023-12-27] MEDS: FAMOTIDINE 20 MG/50 ML IVPB 20 MG/50 ML MG IVPB ONE (16:57)
[2023-12-27] MEDS: SODIUM CHLORIDE 0.9% 500 ML INFUS.BAG IV ONE (16:57)
[2023-12-27 17:01] LABS: BASO % 0.5 % (0-2.0); EOS % 2.1 % (0-4.5); HEMATOCRIT 32.4 % (32.4-45.2); HEMOGLOBIN 10.2 GM/dL (10.7-15.3); LYMPH % 32.6 % (8-40); MCH 22.4 pg (25.7-33.7); MCHC 31.5 g/dl (32.0-36.0); MEAN CELL VOLUME 71.1 fl (80-96); MEAN PLT VOLUME 9.1 fl (7.5-11.1); MONO % 7.3 % (3.8-10.2); NEUT % 57.5 % (42.8-82.8); PLATELET COUNT 269 10^3/uL (134-434); RBC 4.56 M/mm3 (3.60-5.2); RDW 18.3 % (11.6-15.6); WHITE BLOOD COUNT 6.9 K/mm3 (4.0-10.0)
[2023-12-27 17:05] LABS: INR 1.29 (0.83-1.09); PROTHROMBIN TIME (PATIENT) 14.9 SEC (9.7-13.0)
[2023-12-27 17:08] LABS: ACTIVATED PTT 35.2 SECONDS (25.2-36.5)
[2023-12-27 17:49] LABS: MAGNESIUM 2.1 mg/dL (1.8-2.4)
[2023-12-27 17:52] LABS: PHOSPHOROUS 3.3 mg/dL (2.5-4.9)
[2023-12-27 18:04] LABS: CHLORIDE 105 mmol/L (98-107); SODIUM 134 mmol/L (136-145)
[2023-12-27 18:06] LABS: CALCIUM 9.3 mg/dL (8.5-10.1); GLUCOSE,RANDOM 82 mg/dL (74-106)
[2023-12-27 18:07] LABS: BLOOD UREA NITROGEN 5.7 mg/dL (7-18); CO2 27 mmol/L (21-32)
[2023-12-27 18:09] LABS: SGPT/ALT 28 U/L (13-61)
[2023-12-27 18:10] LABS: CREATININE 0.7 mg/dL (0.55-1.3); SGOT/AST 60 U/L (15-37)
[2023-12-27 18:11] LABS: BILIRUBIN,TOTAL 0.4 mg/dL (0.2-1); TOT PROT 7.6 g/dl (6.4-8.2)
[2023-12-27 18:12] LABS: ALK PHOS 99 U/L (45-117)
[2023-12-27 18:24] LABS: ANION GAP 2 mmol/L (4-13); POTASSIUM 6.4 mmol/L (3.5-5.1)
[2023-12-27] MEDS: FOLIC ACID INJECTION - 1 MG, THIAMINE HCL 100 MG, MULTIVIT INJECTION ADULT 10 ML in SOD... IVPB ONE (18:43)
[2023-12-27] MEDS ORDERED: TRIMETHOBENZAMIDE HCL 200MG/2ML INJ IM PRN (20:48)
[2023-12-27] MEDS: MELATONIN 5 MG TABLETS PO ONE (22:31)
[2023-12-28] MEDS: LACTATED RINGERS SOLUTION 1,000 ML/1,000 ML INFUS.BAG IV SCH (00:39)
[2023-12-28] MEDS ORDERED: SUMAtriptan SUCCINATE 25 MG TABLET PO PRN (02:43)
[2023-12-28] MEDS: ACETAMINOPHEN 1000 MG/100 ML BAG IVPB PRN (07:33)
[2023-12-28] MEDS ORDERED: FOLIC ACID INJECTION - 1 MG, THIAMINE HCL 100 MG, MULTIVIT INJECTION ADULT 10 ML in SOD... IVPB ONE (08:00)
[2023-12-28] MEDS: MECLIZINE HCL 25 MG TABLET (FP) PO SCH (09:28)
[2023-12-28] MEDS: PANTOPRAZOLE SODIUM 40 MG VIAL IVPUSH SCH (09:29)
[2023-12-28] MEDS: AMINO ACIDS 4.25%/D5W 1,000 ML IV SCH ×2 (10:06→12:33)
[2023-12-28] MEDS: THIAMINE HCL 200 MG/2 ML VIAL IVPB SCH (12:33)
[2023-12-28] MEDS: FOLIC ACID 1 MG TABLET (FP) PO SCH (12:33)
[2023-12-28] MEDS: SODIUM CHLORIDE 1,000 ML IV SCH (12:37)
[2023-12-28] MEDS ORDERED: MELATONIN 5 MG TABLETS PO PRN (23:25)
[2023-12-28] MEDS: MELATONIN 5 MG TABLETS PO PRN (23:58)
[2023-12-29] MEDS: ACETAMINOPHEN 1000 MG/100 ML BAG IVPB PRN (02:15)
[2023-12-29 09:19] LABS: BASO % 0.7 % (0-2.0); EOS % 4.8 % (0-4.5); HEMATOCRIT 30.6 % (32.4-45.2); HEMOGLOBIN 9.8 GM/dL (10.7-15.3); LYMPH % 42.5 % (8-40); MCH 22.5 pg (25.7-33.7); MEAN CELL VOLUME 70.4 fl (80-96); MEAN PLT VOLUME 9.7 fl (7.5-11.1); MONO % 7.5 % (3.8-10.2); NEUT % 44.5 % (42.8-82.8); PLATELET COUNT 236 10^3/uL (134-434); RBC 4.35 M/mm3 (3.60-5.2); RDW 18.2 % (11.6-15.6); WHITE BLOOD COUNT 7.1 K/mm3 (4.0-10.0)
[2023-12-29] MEDS: ENOXAPARIN NA (PORCINE) 40 MG/0.4 ML DISP.SYRIN SQ SCH (09:31)
[2023-12-29 09:58] LABS: POTASSIUM 3.5 mmol/L (3.5-5.1)
[2023-12-29 10:06] LABS: ALBUMIN 3.2 g/dl (3.4-5.0); BLOOD UREA NITROGEN 5.3 mg/dL (7-18); CALCIUM 8.4 mg/dL (8.5-10.1)
[2023-12-29 10:09] LABS: CREATININE 0.4 mg/dL (0.55-1.3)
[2023-12-29 10:11] LABS: BILIRUBIN,TOTAL 0.4 mg/dL (0.2-1); TOT PROT 5.8 g/dl (6.4-8.2)
[2023-12-29] MEDS: ONDANSETRON 4 MG/2 ML VIAL IVPUSH PRN (14:16)
[2023-12-29 14:48] VITALS: BMI 27.3
[2023-12-29] MEDS: SIMETHICONE 80 MG TAB.CHEW (FP) PO ONE (23:40)
[2023-12-30 09:12] LABS: BASO % 0.7 % (0-2.0); EOS % 6.4 % (0-4.5); HEMATOCRIT 28.4 % (32.4-45.2); HEMOGLOBIN 9.1 GM/dL (10.7-15.3); LYMPH % 50.1 % (8-40); MCH 22.7 pg (25.7-33.7); MCHC 31.9 g/dl (32.0-36.0); MEAN CELL VOLUME 71.1 fl (80-96); MEAN PLT VOLUME 9.5 fl (7.5-11.1); MONO % 7.8 % (3.8-10.2); PLATELET COUNT 206 10^3/uL (134-434); RDW 18.2 % (11.6-15.6); WHITE BLOOD COUNT 6.2 K/mm3 (4.0-10.0)
[2023-12-30 09:21] LABS: POTASSIUM 3.7 mmol/L (3.5-5.1)
[2023-12-30 09:23] LABS: CALCIUM 8.3 mg/dL (8.5-10.1)
[2023-12-30 09:24] LABS: BLOOD UREA NITROGEN 5.4 mg/dL (7-18); MAGNESIUM 1.9 mg/dL (1.8-2.4)
[2023-12-30 09:27] LABS: CREATININE 0.5 mg/dL (0.55-1.3)
[2023-12-30 09:29] LABS: BILIRUBIN,TOTAL 0.3 mg/dL (0.2-1); TOT PROT 5.5 g/dl (6.4-8.2)
[2023-12-30] MEDS: BISACODYL 10 MG SUPP.RECT PR ONE (14:56)
[2023-12-30] MEDS: ACETAMINOPHEN 1000 MG/100 ML BAG IVPB ONE ×2 (15:11→22:48)
[2023-12-30] MEDS: morphine SULFATE 4 MG/ML VIAL IVPUSH ONE (15:31)
[2023-12-30 23:09] VITALS: RESP 18
[2023-12-31] MEDS: diphenhydrAMINE HCL 25 MG CAPSULE (FP) PO ONE (00:04)
[2023-12-31] MEDS: PANTOPRAZOLE 40 MG TABLET PO SCH (12:16)
[2023-12-31 12:37] VITALS: BP 110/73; PULSE 72; TEMP 98.1
== END 2023-12-31 15:37 | disposition home or self-care (01) | DRG 251 ==
LOC: JER 15:33 → JERBED 18:55 → J8W 20:33 → OBSVTOIN 20:48 → J8W 12-28 08:03
PROVIDERS: ADMIT Internal Medicine; ATTEND Nurse Practitioner Acute Care
DX: R10.9 Unspecified abdominal pain (principal); E86.0 Dehydration; J45.909 Unspecified asthma, uncomplicated; K21.9 Gastro-esophageal reflux disease without esophagitis; Z98.84 Bariatric surgery status; R11.2 Nausea with vomiting, unspecified
CPT/HCPCS: 36415; 74177-TC; 74246-TC-FY; 80053; 82607; 83605; 83690; 83735; 84100; 84132; 84703; 85025; 85610; 85730; 86850; 86900; 86901; 93005; 93010; 99285-25; G0378; J0131